=== PATIENT | male | born 1985 | race Two or more races ===

== ENCOUNTER 2025-03-03 04:24 | Emergency (ER) | payer OTHER, SELFPAY ==
[2025-03-03 04:35] VITALS: BP 155/113; PULSE 78; RESP 18; TEMP 36.8; O2SAT 99
[2025-03-03 04:44] VITALS: PULSE 103; RESP 22; O2SAT 98
[2025-03-03 04:48] VITALS: BP 169/117; PULSE 79; RESP 20; TEMP 37.1; O2SAT 99
--- NOTE | 2025-03-03 04:51 | EKG_ITS ---
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
--- NOTE | 2025-03-03 05:20 | XR_ITS ---
Examination: CT brain head without contrast. 2-D sagittal coronal reconstructions Date and time of exam: March 03, 2025, 0634 hours INDICATIONS: Seizure today CTDI: vol (mGy): 51.6 DLP: (mGycm): 1004 Technique: Multiple CT axial sections of the brain have been obtained, 5 mm slice thickness. Contrast has not been administered. 2-D sagittal, coronal reconstructions have been obtained Low dose protocols were performed. One or more of the following dose reduction techniques were used; automated exposure control, adjustment of the mA and/or KV according to patient size, use of iterative reconstruction technique. Findings: No significant ventricular enlargement. Intra-axial or extra-axial hemorrhage density is not seen. No mass effect or midline shift Basal cisterns are not remarkable. Fourth ventricle is midline. Cranial vault intact. Impression: Negative for acute hemorrhage, mass effect or midline shift Consider elective brain MRI follow-up, pre and post contrast, seizure protocol
--- NOTE | 2025-03-03 05:25 | EDNOTE_ITS ---
ED General RME/HPI General Chief complaint: Seizure Stated complaint: AMS Time Seen by Provider: 03/03/25 05:20 Arrival date/time: 03/03/25 04:24 Related Data Allergies Allergy/AdvReac Type Severity Reaction Status Date / Time No Known Drug Allergies Allergy Verified 03/03/25 05:28 ED Exam Narrative Physical exam: Physical Exam: GENERAL: Patient on right lateral recumbent position appears to be seizing HEENT: NC/AT. Moist mucosa. PERRLA/EOMI. sputum from mouth without any frothiness and clear discharge from nares CARDIO: Heart RRR, no obvious murmurs, no JVD. PULM: No coughing or visible SOB. Lungs CTA B/L. GI: Abdomen soft, NT/ND, +BS. SKIN/MSK/EXT: No wounds/discoloration/rashes/edema/amputations noted, no noted pain on palpation. +Pedal pulses present B/L. NEURO: Oriented x0. Patient appears to be seizing but not convincing, eyes open does not respond to commands, no meningeal signs noted with head flexion, unable to assess muscle strength, sensations or cranial nerves at this time. Course Quality Measures none Orders Category Date Time Status EKG (ED ONLY) *Do not use* NOW Care 03/03/25 04:51 Completed Insert IV NOW Care 03/03/25 05:20 Completed Straight [In and Out Catheter] X1 Care 03/03/25 06:[address] head/brain wo con Stat Exams 03/03/25 05:20 Taken EKG (ED Only) Stat Exams 03/03/25 04:51 Ordered ABG [Arterial Blood Gas] Stat Lab 03/03/25 06:26 Ordered Alcohol, Blood Medical Stat Lab 03/03/25 05:23 Results BNP [B-Type Natriuretic Peptide] Stat Lab 03/03/25 05:53 Received Bilirubin,Direct Stat Lab 03/03/25 05:23 Results CBC Stat Lab 03/03/25 05:23 Completed CMP [Comprehensive Metabolic Panel] Stat Lab 03/03/25 05:23 Results Creatine Kinase Stat Lab 03/03/25 05:23 Results Drug Screen,Urine Stat Lab 03/03/25 06:27 Ordered Magnesium Stat Lab 03/03/25 05:23 Results Thyroid Stimulating Hormone Stat Lab 03/03/25 05:23 Results Troponin I Stat Lab 03/03/25 05:23 Results UA, C/S IF [Urinalysis, C/S if Indicated] Stat Lab 03/03/25 06:27 Ordered LORazepam [Ativan Inj] Med 03/03/25 05:15 Discontinued 2 mg .ROUTE .STK-MED ONE LORazepam [Ativan Inj] Med 03/03/25 05:15 Discontinued 2 mg IVP X1 ONE Ondansetron Inj [Zofran Inj] Med 03/03/25 06:26 Discontinued 4 mg IVP X1 ONE Ringers Lactated 1000 ml [Lactated Ringers] 1,000 ml Med 03/03/25 06:26 Active IV 1,000 mls/hr Vital Signs Vital signs: Vital Signs Temperature 98.3 F 03/03/25 04:35 Pulse Rate 78 03/03/25 04:35 Respiratory Rate 18 03/03/25 04:35 Blood Pressure 155/113 H 03/03/25 04:35 Pulse Oximetry (%) 99 03/03/25 04:35 Oxygen Delivery Method Room Air 03/03/25 04:35 Discharge Plan Plan Patient Disposition: Admit Acute Care w/in Hospital Problem List Clinical Impression: New onset seizure Patient/Caregiver Discharge Instructions Print Language: [place] Islander Stand Alone Forms: [email or web address] Award Info., Patient Portal Info Letter MDM Narrative MDM hospital course (for use when minimal MDM required): HPI: 39-year-old male with no significant past medical history presenting from skilled nursing with apparent seizure episode witnessed from nursing staff. Report largely taken from EMS and nursing staff who states the patient had 1 episode where he was found on the floor shaking whole body. Unable to get much history of otherwise. Examination as noted above, patient presented with hypertension blood pressure 155/113, heart rate 78, respiratory rate 18, afebrile satting 99 on room air. Fingerstick blood glucose of 112 lab findings were pending at this time. #Possible new seizure episode Seizure episode lasted less than 2 minutes during examination Patient awake the entire time eyes open, but not answering to any questioning CT head ordered IV Ativan 2 mg given; patient immediately stopped seizing before nurse gave the dose Patient presented to attending Dr. Wesley Pending further workup including laboratory findings, imaging including CT head without contrast and likely teleneurology consultation Will sign out patient to incoming ED physician [place], DO PGY-2 Internal Medicine - [facility] Medication Administration(s) Medication Administration History Lactated Ringer's (Lactated Ringers) 1,000 mls @ 1,000 mls/hr IV .Q1H ONE Stop: 03/03/25 07:25 Discontinued Medications Lorazepam (Lorazepam 2 Mg/Ml Vial) Confirm Administered Dose 2 mg .ROUTE .STK- MED ONE Stop: 03/03/25 05:16 Last Admin: 03/03/25 06:01 Dose: Not Given Documented By: ENRIKE Non-Admin Reason: Duplicate Medication on eMAR Lorazepam (Lorazepam 2 Mg/Ml Vial) 2 mg IVP X1 ONE Stop: 03/03/25 05:16 Last Admin: 03/03/25 05:33 Dose: 2 mg Documented By: ENRIKE Ondansetron HCl (Ondansetron Inj 2 Mg/Ml Inj 2 Ml) 4 mg IVP X1 ONE; Protocol Stop: 03/03/25 06:27
[2025-03-03] MEDS: LORazepam 2 MG/ML VIAL IVP (05:33)
[2025-03-03 06:10] LABS: Basophils # (Auto) 0.1 Thou/mm3 (0.0-0.2); Basophils % (Auto) 1 % (0-2.5); Eosinophils # (Auto) 0.0 Thou/mm3 (0.0-0.5); Eosinophils % (Auto) 0 % (0-10); Hematocrit 42.7 % (41.0-53.0); Hemoglobin 14.3 g/dL (13.5-16.0); Immature Granulocytes Auto 0.03 Thou/mm3 (0.00-0.00); Lymphocytes # (Auto) 2.1 Thou/mm3 (1.0-4.8); Lymphocytes % (Auto) 24 % (10-50); Mean Corpuscular HGB Conc 33.5 g/dl (31.0-37.0); Mean Corpuscular Hemoglobin 29.7 pg (25.0-35.0); Mean Corpuscular Volume 89 fL (80-100); Monocytes # (Auto) 0.5 Thou/mm3 (0.0-0.8); Monocytes % (Auto) 5 % (0-12); Neutrophils # (Auto) 6.4 Thou/mm3 (1.8-7.7); Neutrophils % (Auto) 70 % (37-80); Nucleated Red Blood Cell # 0.00 Thou/mm3 (0.00-0.00); Nucleated Red Blood Cell % 0 /100 WBC (0); Platelet Count 445 Thou/mm3 (140-440); RDW Standard Deviation 41.9 fL (35.1-43.9); Red Blood Count 4.81 Miln/mm3 (4.50-5.90); White Blood Count 9.1 Thou/mm3 (3.8-10.6)
[2025-03-03 06:18] VITALS: BP 149/104; PULSE 82; RESP 17; O2SAT 99
--- NOTE | 2025-03-03 06:20 | PD.EDADDENDU ---
Emergency Room Addendum Addendum Narrative: I took over the care from previous shift physician at _0600_ on _03/03/25_. See previous notes for complete H & P and ED course. I reviewed all diagnostic test results. My interpretation of the EKG: NSR (80 bpm) with no ST-T changes. My review of the head CT report is NAD. Blood tests and urine tests unremarkable. Diagnoses include: New onset seizure Treatment here included: IVF Ativan 2 mg IV Keppra 2000 mg IV Zofran 4 mg IV Seizure resolved and patient remained stable. Prescribed Keppra and recommended more outpatient care. Discharge Instructions from Dr. Madsen printed for you: 1. After extensive evaluation, exact cause of your seizure was not determined. But there is no immediately life-threatening condition. Such as stroke or brain tumor. 2. Take Keppra as prescribed to prevent another seizure. 3. Ask the medical provider at the correction for help to see neurologist this coming week for further care. 4. Seek immediate medical care with another seizure or with any concerns. Gary Madsen MD
[2025-03-03 06:30] LABS: Alanine Aminotransferase 26 U/L (10-49); Albumin, Serum 5.0 gm/dL (3.5-5.0); Albumin/Globulin Ratio 1.8 (1.2-2.2); Alkaline Phosphatase 97 U/L (46-116); Anion Gap 10 (7-16); Aspartate Amino Transferase 20 U/L (0-34); BUN/Creatinine Ratio 11 Ratio (12-20); Bilirubin,Total 0.4 mg/dL (0.3-1.2); Blood Urea Nitrogen 11 mg/dL (9-23); Calcium 9.7 mg/dL (8.3-10.6); Calcium (Corrected) 9.7 mg/dL (8.5-10.1); Carbon Dioxide 28.6 mMol/L (20.0-31.0); Chloride 103 mMol/L (98-107); Creatinine (Component) 1.0 mg/dL (0.6-1.3); Globulin 2.8 gm/dL (2.3-3.5); Glucose 95 mg/dL (74-106); Osmolality,Calculated 282 (275-295); Potassium 3.9 mMol/L (3.4-5.1); Sodium 142 mMol/L (136-145); Total Protein 7.8 gm/dL (5.7-8.2); eGFR > 60 See Note
[2025-03-03 06:49] LABS: Collection Type, Urine Clean Catch; Squamous Epithelial Cell,Urine 0 /hpf (0-5)
[2025-03-03] MEDS: ONDANSETRON INJ 2 MG/ML INJ 2 ML 4 MG IVP (06:52)
[2025-03-03] MEDS: RINGERS LACTATED 1000 ML 1,000 ML IV (06:52)
[2025-03-03 07:06] LABS: Bilirubin,Urine Negative (Negative); Blood,Urine Negative (Negative); Clarity,Urine Clear (Clear/Hazy); Color,Urine Lt-Yellow (Lt Yel-Yel); Culture Indicated,Urine Not Indicated; Glucose, Urine Negative (Negative); Ketones,Urine Negative (Negative); Leukocyte Esterase,Urine Negative (Negative); Nitrite,Urine Negative (Negative); PH,Urine 7.0 (5.0-7.0); Protein,Urine Negative (Neg - Trace); RBC,Urine 3 /hpf (0-3); Specific Gravity,Urine 1.024 (1.001-1.035); Urobilinogen,Urine Negative mg/dL (0.0-1.0); WBC,Urine < 1 /hpf (0-5)
[2025-03-03 07:08] LABS: B-Type Natriuretic Peptide < 20 pg/mL (0-100)
[2025-03-03 07:09] LABS: Alcohol, Blood Medical < 3.0 mg/dL (0-10.0); Bilirubin,Direct 0.1 mg/dL (0.0-0.3); Creatine Kinase 104 U/L (34-171); Magnesium 1.8 mg/dL (1.6-2.6); Thyroid Stimulating Hormone 2.49 uIU/mL (0.55-4.78); Troponin I < 0.020 ng/mL (0.0-0.045)
[2025-03-03] MEDS: levETIRAcetam INJ 100 MG/ML VIAL 5ML 2000 MG IVP (07:09)
[2025-03-03 07:36] LABS: Amphetamine/Methamp Scrn,U Negative (Negative); Barbiturate Screen,Urine Negative (Negative); Benzodiazepines Screen,Urine Positive (Negative); Benzoylecgonine Screen, Ur Negative (Negative); Fentanyl Screen,Urine Negative (Negative); Opiate Screen,Urine Negative (Negative); THC Screen,Urine Negative (Negative)
[2025-03-03 08:35] VITALS: BP 145/78; PULSE 98; RESP 16; TEMP 36.9; O2SAT 96
--- NOTE | 2025-03-03 08:45 | PC.NURSE ---
went to d/c pt, pt reports chest pain. provider notified, ekg ordered.
== END 2025-03-03 09:12 ==
LOC: SERX 08:37
PROVIDERS: Emergency Provider Emergency Medicine; PCP Emergency Medicine
DX: R56.9 Unspecified convulsions (principal)
CPT/HCPCS: 36415; 36600; 70450; 80053; 80307; 80320; 81001; 82248; 82550; 82803; 83735; 83880; 84443; 84484; 85025; 93005; 96361; 96374; 96375; 99284; J1953; J2060; J2405; J7120; G0480

== ENCOUNTER 2025-03-11 01:08 | Emergency (ER) | payer OTHER, SELFPAY ==
[2025-03-11] VITALS (7 sets, daily range): BP systolic 145–184; BP diastolic 75–133; PULSE 80–97; RESP 14–19; TEMP 36.5–37.1; O2SAT 97–99; BMI 23.7
--- NOTE | 2025-03-11 01:12 | EDNOTE_ITS ---
ED Seizures RME/HPI General Chief Complaint: Seizure Stated Complaint: SEIZURE Time Seen by Provider: 03/11/25 01:22 Arrival date/time: 03/11/25 01:08 RME / HPI RME / HPI Narrative: See [facility] for Dr. Madsen's HPI Documentation. Related Data Home Medications ?Medication ?Instructions ?Recorded ?Confirmed calcium carbonate 200 mg PO BID 03/12/2503/12 Held on 03/15/25. Instructions: Resume on 03/22/25. Hold until you see PCP docusate sodium 100 mg capsule 100 mg PO BID 03/12/25 03/12/25 (Colace) famotidine 20 mg tablet 20 mg PO QDAY 03/12/2503/12 nifedipine 30 mg tablet,extended 30 mg PO QDAY 5 03/12/25 release Previous Rx's ?Medication ?Instructions ?Recorded levetiracetam 1,000 mg tablet 1,000 mg PO BID #60 tabs 03/11/25 (Keppra) Allergies Allergy/AdvReac Type Severity Reaction Status Date / Time contrast Allergy Severe Anaphylaxis Uncoded 03/12/25 15:35 Review of Systems Review of Systems ROS Unobtainable: unobtainable due to mental status Past Medical History Past Medical History NEUROLOGIC: Positive Seizures ED Exam Narrative Physical exam: See [facility] for Dr. Madsen's Physical Exam Documentation. Course Quality Measures none Orders Category Date Time Status EKG (ED ONLY) *Do not use* NOW Care 03/11/25 01:44 Completed Tanner [Urinary Catheter] QS Care 03/11/25 01:21 Completed Saline [Insert IV] NOW Care 03/11/25 01:16 Completed Straight [In and Out Catheter] X1 Care 03/11/25 01:[address] head/brain wo con Stat Exams 03/11/25 02:24 Completed EKG (ED Only) Stat Exams 03/11/25 01:44 Draft ABG [Arterial Blood Gas] Stat Lab 03/11/25 01:50 Completed Acetaminophen Stat Lab 03/11/25 01:27 Completed Alcohol, Blood Medical Stat Lab 03/11/25 01:27 Completed Ammonia Stat Lab 03/11/25 01:27 Completed BNP [B-Type Natriuretic Peptide] Stat Lab 03/11/25 01:27 Completed Beta Hydroxybutyrate Stat Lab 03/11/25 01:27 Completed Bilirubin,Direct Stat Lab 03/11/25 01:27 Completed CBC Stat Lab 03/11/25 01:27 Completed CK [Creatine Kinase] Stat Lab 03/11/25 01:27 Completed CMP [Comprehensive Metabolic Panel] Stat Lab 03/11/25 01:27 Completed CRP [C-Reactive Protein] Stat Lab 03/11/25 01:27 Completed Drug Screen,Urine Stat Lab 03/11/25 01:25 Completed ESR [Sed Rate (ESR)] Stat Lab 03/11/25 01:27 Completed Levetiracetam (Keppra)* Stat Lab 03/11/25 01:27 Completed Lipase Stat Lab 03/11/25 01:27 Completed Magnesium Stat Lab 03/11/25 01:27 Completed Procalcitonin Stat Lab 03/11/25 01:27 Completed Salicylate Stat Lab 03/11/25 01:27 Completed Troponin I Stat Lab 03/11/25 01:27 Completed UA, C/S IF [Urinalysis, C/S if Indicated] Stat Lab 03/11/25 01:25 Completed VBG [Venous Blood Gas] Stat Lab 03/11/25 01:27 Completed LORazepam [Ativan Inj] Med 03/11/25 04:16 Discontinued 2 mg IVP X1 ONE Midazolam Inj [Versed Inj] Med 03/11/25 01:16 Discontinued 4 mg IVP X1 ONE Ondansetron Inj [Zofran Inj] Med 03/11/25 01:16 Discontinued 4 mg IVP X1 ONE Sodium Chloride 0.9% 1000 ml [Ns] 1,000 ml Med 03/11/25 01:16 Discontinued IV 999 mls/hr Sodium Chloride 0.9% 1000 ml [Ns] 1,000 ml Med 03/11/25 03:28 Discontinued IV 999 mls/hr hydrALAZINE INJ [Apresoline Inj] Med 03/11/25 01:23 Discontinued 20 mg IVP X1 ONE levETIRAcetam INJ [Keppra Inj] Med 03/11/25 01:16 Discontinued 2,000 mg IVP X1 ONE Vital Signs Vital signs: Vital Signs Temperature 98.8 F 03/11/25 01:17 Pulse Rate 87 03/11/25 01:17 Respiratory Rate 17 03/11/25 01:17 Blood Pressure 184/133 H 03/11/25 01:17 Pulse Oximetry (%) 98 03/11/25 01:17 Oxygen Delivery Method Room Air 03/11/25 01:17 Seizure MDM Narrative MDM Narrative:: This section includes all my notes and documentations, including HPI, PE, and ED course. Gary Madsen MD HPI: 39 y/o male from group home here with possible seizures. I took care of him last week with possible new onset seizures. Discharged him with Keppra 500 mg BID. 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 Then, he placed himself on the floor. And officer noted seizure like activity. Whole body became rigid. No generalized shaking noted. He became unresponsive. Ativan 2 mg IM given. And EMS brought him here. EMS noted another episode of rigidity. Patient remained unresponsive. He has been in group home for about a month. Reports indicate possible alcohol abuse. No other significant reports. ROS: Can't obtain from the patient due to current clinical condition. Physical Exam: General: Appears postictal. Not verbal. Not responsive to pain. High BP noted. Eyes: Conjunctivae and lids clear. EOMI. PERRL. ENT: No nasal congestion. Pharynx normal. Tympanic membrane normal bilaterally. Neck: Supple. No carotid bruit. No JVD. Heart: RRR. Lungs: No respiratory distress. Good air movement. No rhonchi, wheezing, rales. Abdomen: Soft and nontender. Skin: Warm and dry. Neuro: Cranial Nerves II-XII grossly intact. No peripheral motor deficits. I reviewed all diagnostic test results: My interpretation of the EKG: NSR (80 bpm) with no ST-T changes. My review of the Head/Brain CT report is NAD. Blood tests and urine tests unremarkable. At this point, diagnoses include: Possible seizures Treatment here included: IVF Zofran 4 mg IV Hydralazine 20 mg IV Versed 4 mg IV Keppra 1000 mg IV Significant improvement noted. Became alert and oriented. I discussed the case with our hospitalist. About the presentation and exam and diagnostics and treatments here. Declined to accept the patient. Believes patient is faking for gains. Based on my best medical judgment, made decision no further evaluation or treatment indicated at this time. Patient understands and agrees to the discharge instructions customized and printed, see below. Discharge Instructions from Dr. Madsen printed for you: 1. After extensive evaluation, there is no immediately life-threatening condition. Such as stroke or brain tumor. 2. Exact cause of the seizure-like activity was not determined. After evaluation by our hospitalist team, pseudoseizure may be the diagnosis. 3. Increase Keppra to 1000 mg twice daily in case we are dealing with real seizure. 4. See a private doctor on 03/12/2025 for recheck and further care, including second opinion. Ask for help with MRI imaging of the brain, EEG (evaluation of brain's electrical activity), and referral to see neurologist. 5. Seek immediate medical care with worsening or with any concerns. Gary Madsen MD Patient data External records reviewed:: [facility] previous records (Reviewed prior ED records from 03/03/25. Patient was seen for New onset seizure.) Clinical information provided by:: patient and law enforcement Social determinants that could affect healthcare access:: housing (Detention) Patient has the following chronic illnesses:: Seizures How is presenting disease/condition affected by chronic disease/condition?: exacerbated by Evaluation data The following diagnostics were reviewed and interpreted by me:: lab results, radiology exam(s) and EKG tracing(s) (My interpretation of the EKG: NSR (80 bpm) with no ST-T changes. Gary Madsen MD) Lab and/or radiology exams considered but not ordered:: None Interpretation Summary: I reviewed all diagnostic test results: My interpretation of the EKG: NSR (80 bpm) with no ST-T changes. My review of the Head/Brain CT report is NAD. Blood tests and urine tests unremarkable. Medications / Prescriptions Medications or Prescriptions considered but not ordered:: None Medication administrations:: Medication Administration History Discontinued Medications Hydralazine HCl (Hydralazine Inj 20 Mg/Ml Vial) 20 mg IVP X1 ONE Stop: 03/11/25 01:24 Last Admin: 03/11/25 01:32 Dose: 20 mg Documented By: CB Sodium Chloride (Ns) 1,000 mls @ 999 mls/hr IV .Q1H1M ONE Stop: 03/11/25 02:16 Last Infusion: 03/11/25 02:41 Dose: Infused Documented By: Admin: 03/11/25 01:26 Dose: 999 mls/hr Documented By: KRISTIN Sodium Chloride (Ns) 1,000 mls @ 999 mls/hr IV .Q1H1M ONE Stop: 03/11/25 04:28 Last Admin: 03/11/25 03:36 Dose: 999 mls/hr Documented By: SUNIL Levetiracetam (Levetiracetam Inj 100 Mg/Ml Vial 5ml) 2,000 mg IVP X1 ONE Stop: 03/11/25 01:17 Last Admin: 03/11/25 01:30 Dose: 2,000 mg Documented By: KRISTIN Lorazepam (Lorazepam 2 Mg/Ml Vial) 2 mg IVP X1 ONE Stop: 03/11/25 04:17 Last Admin: 03/11/25 04:29 Dose: Not Given Documented By: KARINA Non-Admin Reason: Cancelled by Provider Midazolam HCl (Midazolam Inj 1 Mg/Ml Vial 2 Ml) 4 mg IVP X1 ONE Stop: 03/11/25 01:17 Last Admin: 03/11/25 01:30 Dose: 4 mg Documented By: KRISTIN Ondansetron HCl (Ondansetron Inj 2 Mg/Ml Inj 2 Ml) 4 mg IVP X1 ONE; Protocol Stop: 03/11/25 01:17 Last Admin: 03/11/25 01:32 Dose: 4 mg Documented By: KRISTIN Treatment here included: IVF Zofran 4 mg IV Hydralazine 20 mg IV Versed 4 mg IV Keppra 1000 mg IV Consultations Consultation(s) initiated? (list below): Yes Consultation #1 (Physician, Specialty, Details): I discussed the case with our hospitalist. About the presentation and exam and diagnostics and treatments here. Declined to accept the patient. Believes patient is faking for gains. Diagnosis Seizure Differential Diagnosis: intractable seizure disorder, focal seizure, generalized seizure, epileptic seizure and status epilepticus Most likely diagnosis given after review of the tests above:: Possible seizures Admission Indicated Admission indicated?: not indicated Explain why admission is indicated or not indicated:: I discussed the case with our hospitalist. About the presentation and exam and diagnostics and treatments here. Declined to accept the patient. Believes patient is faking for gains. Admission Request Was there a request for admission?: No Disposition Plan Disposition Plan: Discharge Discharge Attestation Discharge Attestation: The patient and all family members were given an opportunity to ask questions and understood the discharge instructions. Discharge instructions specifically effects, indications for sooner follow up or return to the emergency department, and the expected course of current diagnosis. Patient condition: Stable Discharge Plan Plan Patient Disposition: Detention/Court/Law Prescriptions/Referrals Prescriptions/Med Rec: New levetiracetam [Keppra] 1,000 mg tablet 1,000 mg PO BID Qty: 60 0RF No Action nifedipine 30 mg tablet extended release 30 mg PO QDAY Patient Comments: TAKE 1 TABLET BY MOUTH ON EMPTY STOMACH ONCE EVERY DAY calcium carbonate 200 mg calcium (500 mg) tablet,chewable 200 mg PO BID docusate sodium [Colace] 100 mg capsule 100 mg PO BID famotidine 20 mg tablet 20 mg PO QDAY Referrals: No Primary/Family,Physician [Primary Care Provider] - In 1 week Problem List Clinical Impression: Seizure-like activity Patient/Caregiver Discharge Instructions Discharge Activity: activity as tolerated Education Materials: ED Seizure, Recurrent (Adult), ED Conversion Disdr Conversion Reac Additional Instructions: Discharge Instructions from Dr. Madsen printed for you: 1. After extensive evaluation, there is no immediately life-threatening condition. Such as stroke or brain tumor. 2. Exact cause of the seizure-like activity was not determined. After evaluation by our hospitalist team, pseudoseizure may be the diagnosis. 3. Increase Keppra to 1000 mg twice daily in case we are dealing with real seizure. 4. See a private doctor on 03/12/2025 for recheck and further care, including second opinion. Ask for help with MRI imaging of the brain, EEG (evaluation of brain's electrical activity), and referral to see neurologist. 5. Seek immediate medical care with worsening or with any concerns. Print Language: Frisian
[2025-03-11] MEDS: SODIUM CHLORIDE 0.9% 1000 ML 1,000 ML 999 ML IV ×2 (01:26→03:36)
[2025-03-11] MEDS: MIDAZOLAM INJ 1 MG/ML VIAL 2 ML 4 MG IVP (01:30)
[2025-03-11] MEDS: levETIRAcetam INJ 100 MG/ML VIAL 5ML 2000 MG IVP (01:30)
[2025-03-11 01:31] LABS: Collection Type, Urine Clean Catch; Squamous Epithelial Cell,Urine 0 /hpf (0-5)
[2025-03-11] MEDS: ONDANSETRON INJ 2 MG/ML INJ 2 ML 4 MG IVP (01:32)
[2025-03-11] MEDS: hydrALAZINE INJ 20 MG/ML VIAL IVP (01:32)
[2025-03-11 01:37] LABS: Base Excess, Venous 4 (-3-3); O2 Saturation, Venous 85 % (96-97); PCO2, Venous 46 mmHg (36-56); PO2, Venous 50 mmHg (15-58); pH, Venous 7.42 (7.33-7.66)
[2025-03-11 01:37] LABS: Bilirubin,Urine Negative (Negative); Blood,Urine Negative (Negative); Clarity,Urine Clear (Clear/Hazy); Color,Urine Lt-Yellow (Lt Yel-Yel); Culture Indicated,Urine Not Indicated; Glucose, Urine Negative (Negative); Ketones,Urine Negative (Negative); Leukocyte Esterase,Urine Negative (Negative); Nitrite,Urine Negative (Negative); PH,Urine 7.0 (5.0-7.0); Protein,Urine Negative (Neg - Trace); RBC,Urine < 1 /hpf (0-3); Specific Gravity,Urine 1.015 (1.001-1.035); Urobilinogen,Urine Negative mg/dL (0.0-1.0); WBC,Urine < 1 /hpf (0-5)
[2025-03-11 01:42] LABS: Sed Rate (ESR) 10 mm/hr (0-15)
[2025-03-11 01:42] LABS: Amphetamine/Methamp Scrn,U Negative (Negative); Barbiturate Screen,Urine Negative (Negative); Benzodiazepines Screen,Urine Negative (Negative); Benzoylecgonine Screen, Ur Negative (Negative); Fentanyl Screen,Urine Negative (Negative); Opiate Screen,Urine Negative (Negative); THC Screen,Urine Negative (Negative)
[2025-03-11 01:44] LABS: Basophils # (Auto) 0.1 Thou/mm3 (0.0-0.2); Basophils % (Auto) 1 % (0-2.5); Eosinophils # (Auto) 0.1 Thou/mm3 (0.0-0.5); Eosinophils % (Auto) 1 % (0-10); Hematocrit 42.5 % (41.0-53.0); Hemoglobin 14.2 g/dL (13.5-16.0); Immature Granulocytes Auto 0.05 Thou/mm3 (0.00-0.00); Lymphocytes # (Auto) 3.9 Thou/mm3 (1.0-4.8); Lymphocytes % (Auto) 36 % (10-50); Mean Corpuscular HGB Conc 33.4 g/dl (31.0-37.0); Mean Corpuscular Hemoglobin 29.3 pg (25.0-35.0); Mean Corpuscular Volume 88 fL (80-100); Monocytes # (Auto) 0.8 Thou/mm3 (0.0-0.8); Monocytes % (Auto) 7 % (0-12); Neutrophils # (Auto) 5.9 Thou/mm3 (1.8-7.7); Neutrophils % (Auto) 55 % (37-80); Nucleated Red Blood Cell # 0.00 Thou/mm3 (0.00-0.00); Nucleated Red Blood Cell % 0 /100 WBC (0); Platelet Count 447 Thou/mm3 (140-440); RDW Standard Deviation 42.0 fL (35.1-43.9); Red Blood Count 4.84 Miln/mm3 (4.50-5.90); White Blood Count 10.8 Thou/mm3 (3.8-10.6)
--- NOTE | 2025-03-11 01:44 | EKG_ITS ---
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
[2025-03-11 01:56] LABS: Allen Test Performed/OK; Base Excess 3 (-3-3); HCO3 28 mEq/L (20-26); Inspired Oxygen, FIO2 21 %; O2 Saturation 96 % (91-98); PCO2 43 mmHg (32.0-48.0); PO2 85 mmHg (83-108); Puncture Site Right Radial; pH, Arterial 7.41 (7.35-7.45)
[2025-03-11 02:08] LABS: Ammonia 32 uMol/L (11-32)
--- NOTE | 2025-03-11 02:24 | XR_ITS ---
Examination: CT brain head without contrast. 2-D sagittal coronal reconstructions Date and time of exam: March 11, 2025, 0308 hours, comparison March 03, 2025 INDICATIONS: Seizure today CTDI: vol (mGy): 51.90 DLP: (mGycm): 1099 Technique: Multiple CT axial sections of the brain have been obtained, 5 mm slice thickness. Contrast has not been administered. 2-D sagittal, coronal reconstructions have been obtained Low dose protocols were performed. One or more of the following dose reduction techniques were used; automated exposure control, adjustment of the mA and/or KV according to patient size, use of iterative reconstruction technique. Findings: No significant ventricular enlargement. Intra-axial or extra-axial hemorrhage density is not seen. No mass effect or midline shift Basal cisterns are not remarkable. Fourth ventricle is midline. Cranial vault intact. 16 mm retention cyst left maxillary antrum Impression: Negative for acute hemorrhage, mass effect or midline shift Consider elective brain MRI follow-up, seizure protocol
[2025-03-11 02:37] LABS: Acetaminophen < 2.0 mcg/mL (10.0-20.0); Alanine Aminotransferase 29 U/L (10-49); Albumin, Serum 4.9 gm/dL (3.5-5.0); Albumin/Globulin Ratio 1.7 (1.2-2.2); Alcohol, Blood Medical < 3.0 mg/dL (0-10.0); Alkaline Phosphatase 94 U/L (46-116); Anion Gap 10 (7-16); Aspartate Amino Transferase 23 U/L (0-34); B-Type Natriuretic Peptide < 20 pg/mL (0-100); BUN/Creatinine Ratio 10 Ratio (12-20); Bilirubin,Direct < 0.1 mg/dL (0.0-0.3); Bilirubin,Total 0.4 mg/dL (0.3-1.2); Blood Urea Nitrogen 10 mg/dL (9-23); C-Reactive Protein < 0.5 mg/dL (0.0-0.9); Calcium 9.8 mg/dL (8.3-10.6); Calcium (Corrected) 9.8 mg/dL (8.5-10.1); Carbon Dioxide 27.9 mMol/L (20.0-31.0); Chloride 104 mMol/L (98-107); Creatine Kinase 151 U/L (34-171); Creatinine (Component) 1.0 mg/dL (0.6-1.3); Estimated Creatinine Clearance 108.9 mL/min (>60); Globulin 2.9 gm/dL (2.3-3.5); Glucose 86 mg/dL (74-106); Lipase 32 U/L (12-53); Magnesium 1.8 mg/dL (1.6-2.6); Osmolality,Calculated 281 (275-295); Potassium 3.9 mMol/L (3.4-5.1); Procalcitonin < 0.04 ng/ml (0.0-0.49); Salicylate < 3.0 mg/dL; Sodium 142 mMol/L (136-145); Total Protein 7.8 gm/dL (5.7-8.2); Troponin I < 0.020 ng/mL (0.0-0.045); eGFR > 60 See Note
[2025-03-11 03:21] LABS: Beta Hydroxybutyrate 0.0 mmol/L (<0.6)
--- NOTE | 2025-03-11 03:35 | PRELIM_ITS ---
CT scan of the head without intravenous contrast (axial sections with sagittal and coronal reformats). March 11, 2025 0308 hours Clinical History: AMS Comparison: None Findings: There is no intracranial hemorrhage, extra-axial collection, mass, mass-effect or midline shift. There is good espitia-white differentiation. There is no CT evidence of acute large vascular territorial infarct. Ventricles are not enlarged or effaced. There is mild paranasal sinus mucosal. 1.6 cm dependent left maxillary sinus mucous retention cyst noted. Tympanomastoid cavities are clear. The bony calvarium is intact. Impression: No intracranial hemorrhage, mass-effect or midline shift. No CT evidence of acute large vascular territorial infarct. Report Electronically Signed By: Yury Medina 03/11/2025 3:35:04 AM [EST]
[2025-03-15 06:22] LABS: Levetiracetam (Keppra)* <2.0 mcg/mL (10.0-40.0)
== END 2025-03-11 05:03 ==
PROVIDERS: Emergency Provider Emergency Medicine
DX: R56.9 Unspecified convulsions (principal)
CPT/HCPCS: 36415; 36600; 51702; 70450; 80053; 80177; 80307; 80320; 80329; 81001; 82010; 82140; 82248; 82550; 82803; 83690; 83735; 83880; 84145; 84484; 85025; 85652; 86140; 93005; 96361; 96374; 96375; 99284; A4314; J0360; J1953; J2250; J2405; J7030; G0480

== ENCOUNTER 2025-03-11 13:18 | Inpatient (IN) | payer MEDICAID, SELFPAY ==
[2025-03-11 13:29] VITALS: BP 160/113; PULSE 78; PULSE 88; RESP 18; TEMP 36.5; O2SAT 100; O2SAT 99; BMI 27.5
--- NOTE | 2025-03-11 13:36 | PD.EDSYNC ---
ED Syncope RME/HPI General Chief Complaint: Syncope / Near Syncope Stated Complaint: SYNCOPE Time Seen by Provider: 03/11/25 13:23 Arrival date/time: 03/11/25 13:18 RME / HPI RME / HPI narrative: DR. 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 Patient was seen in ED on 03/03/2025 for new onset seizure and was started on Keppra. Patient returned on 03/11/2025 at 1 AM with recurrent seizure and was discharged back into [facility] custody. Related Data Home Medications ?Medication ?Instructions ?Recorded ?Confirmed calcium carbonate 200 mg PO BID 03/12/25 03/12/25 Held on 03/15/25. Instructions: Resume on 03/22/25. Hold until you see PCP docusate sodium 100 mg capsule 100 mg PO BID 03/12/25 03/12/25 (Colace) famotidine 20 mg tablet 20 mg PO QDAY 03/12/25 03/12/25 nifedipine 30 mg tablet,extended 30 mg PO QDAY 03/12/25 03/12/25 release Previous Rx's ?Medication ?Instructions ?Recorded levetiracetam 1,000 mg tablet 1,000 mg PO BID #60 tabs 03/11/25 (Keppra) doxycycline hyclate 100 mg tablet 100 mg PO BID 27 days #54 tabs 03/16/25 Allergies Allergy/AdvReac Type Severity Reaction Status Date / Time contrast Allergy Severe Anaphylaxis Uncoded 03/20/25 09:10 Review of Systems Review of Systems Systems Reviewed: All systems reviewed, normal except as documented Past Medical History Past Medical History NEUROLOGIC: Positive Seizures CARDIAC: Positive Hypertension Social History SMOKING STATUS: Former smoker ED Exam Narrative Physical exam: GENERAL APPEARANCE: alert and oriented x 4, well-developed, well-nourished, no acute distress VITALS: All vitals were reviewed and the pulse ox is 99% on room air, which is normal according to my interpretation. HEENT: Normocephalic, atraumatic; pupils equal, round, reactive to light; EOMI; mucous membranes pink, moist; oropharynx clear NECK: Supple LUNGS: CTABL; no wheezes, no rales, no rhonchi HEART: Regular rate, regular rhythm; normal S1, S2; no murmurs ABDOMEN: non distended; normal BS; soft, no tenderness, no guarding, no rebound; no masses, no organomegaly, no hernia BACK: no CVA tenderness EXTREMITIES: atraumatic; no edema NEUROLOGIC: awake; alert and oriented x4; cranial nerves II-XII grossly intact; no focal sensory or motor deficits PSYCHIATRIC: appropriate mood and affect SKIN: warm, dry, normal color; no rashes Course Quality Measures none Orders Category Date Time Status EKG (ED ONLY) *Do not use* NOW Care 03/11/25 13:42 Completed Consult to Neurology / Tele-Neurology Stat Cons 03/11/25 15:18 Active EKG (ED Only) Stat Exams 03/11/25 13:42 Ordered CBC Stat Lab 03/11/25 14:15 Completed CMP [Comprehensive Metabolic Panel] Stat Lab 03/11/25 14:15 Completed Troponin I Stat Lab 03/11/25 14:15 Completed UA, C/S IF [Urinalysis, C/S if Indicated] Stat Lab 03/11/25 13:48 Completed Vital Signs Vital signs: Vital Signs Temperature 97.7 F 03/11/25 13:29 Pulse Rate 88 03/11/25 13:29 Respiratory Rate 18 03/11/25 13:29 Blood Pressure 160/113 H 03/11/25 13:29 Pulse Oximetry (%) 99 03/11/25 13:29 Oxygen Delivery Method Room Air 03/11/25 13:29 Syncope MDM Narrative MDM Narrative:: Scribe Attestation: Lisa Puga am scribing for and in the presence of Dr. Beck. Provider Notation: Although this document has been carefully reviewed, there may still be some phonetic and other typographical errors. These errors are purely grammatical due to imperfections in the software program and should not be construed in any way to compromise the substance of the patient's medical care during this visit. Patient data External records reviewed:: [facility] previous records (Reviewed prior ED records from Today. Patient was seen for Seizure-like activity.) and EMS form Clinical information provided by:: patient and EMS Social determinants that could affect healthcare access:: housing (Prison) Patient has the following chronic illnesses:: Seizures, HTN How is presenting disease/condition affected by chronic disease/condition?: exacerbated by Evaluation data The following diagnostics were reviewed and interpreted by me:: lab results and EKG tracing(s) (EKG manual reading, my interpretation: sinus rhythm, rate: 69 bpm, no ST elevation, possible Q-wave in v1, poor R-wave progression.) Lab and/or radiology exams considered but not ordered:: None Interpretation Summary: LABORATORY MARKERS Serum chemistries demonstrate BUN/Creatinine of 9. UA demonstrates urine RBC of 13. Medications / Prescriptions Medications or Prescriptions considered but not ordered:: None Medication administrations:: Medication Administration History Discontinued Medications Acetaminophen (Acetaminophen 325 Mg Tablet) 650 mg PO Q6H PRN PRN Reason: Fever >100.4 Stop: 04/10/25 16:09 Last Admin: 03/13/25 08:02 Dose: 650 mg Documented By: BRITTNEE Acetaminophen (Acetaminophen 325 Mg Tablet) 650 mg PO Q6H PRN PRN Reason: PAIN SCALE 1-3 (mild Stop: 04/10/25 16:09 Last Admin: 03/12/25 03:30 Dose: 650 mg Documented By: SUGAR Hydrocodone Bitart/Acetaminophen (Hydrocodone/Apap 5/325 Tablet) 1 tab PO Q4HR PRN PRN Reason: PAIN SCALE 4-10(Mod-Sev Stop: 03/16/25 16:14 Last Admin: 03/16/25 12:39 Dose: 1 tab Documented By: BRITTNEE(2) Admin: 03/16/25 03:09 Dose: 1 tab Documented By: Admin: 03/15/25 20:47 Dose: 1 tab Documented By: Admin: 03/15/25 08:34 Dose: 1 tab Documented By: BRITTNEE(2) Admin: 03/14/25 21:01 Dose: 1 tab Documented By: IG Amlodipine Besylate (Amlodipine Besylate 5 Mg Tablet) 5 mg PO QDAY GINA Stop: 04/11/25 08:59 Last Admin: 03/16/25 08:22 Dose: 5 mg Documented By: BRITTNEE(2) Admin: 03/15/25 08:34 Dose: 5 mg Documented By: BRITTNEE(2) Admin: 03/14/25 09:06 Dose: 5 mg Documented By: Admin: 03/13/25 08:03 Dose: 5 mg Documented By: Admin: 03/12/25 09:06 Dose: 5 mg Documented By: BRITTNEE Diazepam (Diazepam Inj 5 Mg/Ml Vial 2 Ml) 5 mg IVP Q15MIN PRN PRN Reason: seizure Stop: 03/16/25 16:17 Diphenhydramine HCl (Diphenhydramine Inj 50 Mg/Ml Vial) Confirm Administered Dose 50 mg .ROUTE .STK-MED ONE Stop: 03/12/25 15:26 Last Admin: 03/12/25 15:33 Dose: Not Given Documented By: JANETH Non-Admin Reason: Override Medication Diphenhydramine HCl (Diphenhydramine Inj 50 Mg/Ml Vial) 25 mg IVP X1 ONE Stop: 03/12/25 15:32 Last Admin: 03/12/25 15:33 Dose: 25 mg Documented By: JANETH Doxycycline Hyclate (Doxycycline 100 Mg Tablet) 100 mg PO BID GINA Stop: 03/21/25 08:59 Last Admin: 03/16/25 08:22 Dose: 100 mg Documented By: BRITTNEE(2) Admin: 03/15/25 20:47 Dose: 100 mg Documented By: Admin: 03/15/25 08:35 Dose: 100 mg Documented By: BRITTNEE(2) Admin: 03/14/25 21:01 Dose: 100 mg Documented By: Admin: 03/14/25 09:07 Dose: 100 mg Documented By: BRITTNEE Enoxaparin Sodium (Enoxaparin Sod Inj 40 Mg/0.4 Ml Syringe) 40 mg SC QDAY GINA Stop: 03/26/25 08:59 Last Admin: 03/16/25 08:23 Dose: 40 mg Documented By: BRITTNEE(2) Admin: 03/15/25 08:34 Dose: 40 mg Documented By: BRITTNEE(2) Admin: 03/14/25 10:00 Dose: Not Given Documented By: BRITTNEE Non-Admin Reason: Held for Procedure Admin: 03/13/25 08:02 Dose: 40 mg Documented By: Admin: 03/12/25 09:06 Dose: 40 mg Documented By: BRITTNEE Epinephrine HCl (Epinephrine Inj 1 Mg/Ml Amp) 1 mg IM X1 ONE Stop: 03/12/25 15:33 Last Admin: 03/12/25 15:23 Dose: 1 mg Documented By: VL Hydrocortisone Sodium Succinate (Hydrocortisone Sod Succ Inj 100 Mg 2 Ml Vial) Confirm Administered Dose 100 mg .ROUTE .STK-MED ONE Stop: 03/12/25 15:29 Last Admin: 03/12/25 15:33 Dose: Not Given Documented By: VL Non-Admin Reason: Override Medication Hydrocortisone Sodium Succinate (Hydrocortisone Sod Succ Inj 100 Mg 2 Ml Vial) 100 mg IV X1 ONE Stop: 03/12/25 15:32 Last Admin: 03/12/25 15:27 Dose: 100 mg Documented By: JANETH Lactated Ringer's (Lactated Ringers) 1,000 mls @ 75 mls/hr IV .[id number] GINA Stop: 04/10/25 16:14 Last Admin: 03/15/25 15:22 Dose: Not Given Documented By: BRITTNEE(2) Non-Admin Reason: Discontinued Infusion: 03/15/25 13:28 Dose: Infused Documented By: R(2) Admin: 03/15/25 00:08 Dose: 75 mls/hr Documented By: Infusion: 03/15/25 00:08 Dose: Infused Documented By: Admin: 03/14/25 17:05 Dose: 75 mls/hr Documented By: Infusion: 03/14/25 14:40 Dose: Infused Documented By: Admin: 03/14/25 01:20 Dose: 75 mls/hr Documented By: Infusion: 03/14/25 00:17 Dose: Infused Documented By: Admin: 03/13/25 10:57 Dose: 75 mls/hr Documented By: Infusion: 03/13/25 09:40 Dose: Infused Documented By: Admin: 03/12/25 20:20 Dose: 75 mls/hr Documented By: Infusion: 03/12/25 20:08 Dose: Infused Documented By: Admin: 03/12/25 06:48 Dose: 75 mls/hr Documented By: Infusion: 03/12/25 05:47 Dose: Infused Documented By: Admin: 03/11/25 16:27 Dose: 75 mls/hr Documented By: MALOU Magnesium Sulfate (Magnesium Sulfate Ivpb) 2 gm in 50 mls @ 25 mls/hr IV X1 ONE Stop: 03/12/25 11:26 Last Admin: 03/12/25 09:51 Dose: 25 mls/hr Documented By: BRITTNEE Ibuprofen (Ibuprofen Tab 400 Mg Tablet) 400 mg PO X1 ONE Stop: 03/16/25 10:31 Last Admin: 03/16/25 10:44 Dose: 400 mg Documented By: BRITTNEE(2) Lactulose (Lactulose Syrup 20 Gm/30 Ml Udc) 20 gm PO HS GINA; Protocol Stop: 04/10/25 20:59 Last Admin: 03/15/25 20:47 Dose: 20 gm Documented By: Admin: 03/14/25 21:01 Dose: 20 gm Documented By: Admin: 03/13/25 20:04 Dose: 20 gm Documented By: Admin: 03/12/25 20:18 Dose: 20 gm Documented By: Admin: 03/11/25 21:51 Dose: 20 gm Documented By: SUGAR Levetiracetam (Levetiracetam 250 Mg Tablet) 1,000 mg PO BID GNIA Stop: 04/12/25 20:59 Last Admin: 03/16/25 08:23 Dose: 1,000 mg Documented By: BRITTNEE(2) Admin: 03/15/25 20:46 Dose: 1,000 mg Documented By: Admin: 03/15/25 08:34 Dose: 1,000 mg Documented By: BRITTNEE(2) Admin: 03/14/25 21:01 Dose: 1,000 mg Documented By: Admin: 03/14/25 09:06 Dose: 1,000 mg Documented By: Admin: 03/13/25 20:04 Dose: 1,000 mg Documented By: Magnesium Oxide (Magnesium Oxide 400 Mg Tablet) 400 mg PO X1 ONE Stop: 03/16/25 08:30 Last Admin: 03/16/25 09:52 Dose: 400 mg Documented By: BRITTNEE(2) Ondansetron HCl (Ondansetron Inj 2 Mg/Ml Inj 2 Ml) 4 mg IVP Q6H PRN; Protocol PRN Reason: NAUSEA OR VOMITING Stop: 04/10/25 16:09 Polyethylene Glycol (Polyethylene Glycol 17 Gm Packet) 17 gm PO X1 ONE Stop: 03/15/25 10:49 Last Admin: 03/15/25 11:11 Dose: 17 gm Documented By: BRITTNEE(2) Sennosides (Senna Tablet) 1 tab PO QDAY GINA; Protocol Stop: 04/15/25 10:29 Last Admin: 03/16/25 10:44 Dose: 1 tab Documented By: BRITTNEE(2) See above if any Consultations Consultation(s) initiated? (list below): Yes Consultation #1 (Physician, Specialty, Details): Discussed with Dr. Ma for consult. Reviewed the patient?s HPI, PMHx, lab and/or radiology results. Treatment plan was discussed. Time: 15:16 Consultation #2 (Physician, Specialty, Details): Discussed with Dr. Laboy for admission. Reviewed the patient?s HPI, PMHx, lab and/or radiology results. Discussed treatment plan. Accepts patient for admission.. Time: 15:20 Diagnosis Syncope Differential Diagnosis: syncope due to orthostatic hypotension, vasovagal syncope, dehydration and other (Seizure) Most likely diagnosis given after review of the tests above:: New onset seizure Admission Indicated Admission indicated?: indicated Explain why admission is indicated or not indicated:: New onset seizure Admission Request Was there a request for admission?: Yes Admission Attestation Admission request attestation: Discussed case with [] from Hospitalist service regarding admission. Discussed patients ED course, exam findings, labs, and radiology results. The Hospitalist [agrees,declines] to accept the patient for admission. Disposition Plan Disposition Plan: Admit Discharge Plan Plan Patient Disposition: Admit Acute Care w/in Hospital Patient condition on transfer: Stable and Benefits outweigh risks Problem List Clinical Impression: New onset seizure
[2025-03-11 13:56] LABS: Collection Type, Urine Clean Catch; Squamous Epithelial Cell,Urine 0 /hpf (0-5)
[2025-03-11 14:04] LABS: Bilirubin,Urine Negative (Negative); Blood,Urine Trace (Negative); Clarity,Urine Clear (Clear/Hazy); Color,Urine Lt-Yellow (Lt Yel-Yel); Culture Indicated,Urine Not Indicated; Glucose, Urine Negative (Negative); Ketones,Urine Negative (Negative); Leukocyte Esterase,Urine Negative (Negative); Nitrite,Urine Negative (Negative); PH,Urine 6.5 (5.0-7.0); Protein,Urine Negative (Neg - Trace); RBC,Urine 13 /hpf (0-3); Specific Gravity,Urine 1.016 (1.001-1.035); Urobilinogen,Urine Negative mg/dL (0.0-1.0); WBC,Urine 1 /hpf (0-5)
[2025-03-11 14:28] LABS: Basophils # (Auto) 0.1 Thou/mm3 (0.0-0.2); Basophils % (Auto) 1 % (0-2.5); Eosinophils # (Auto) 0.1 Thou/mm3 (0.0-0.5); Eosinophils % (Auto) 1 % (0-10); Hematocrit 40.0 % (41.0-53.0); Hemoglobin 13.4 g/dL (13.5-16.0); Immature Granulocytes Auto 0.02 Thou/mm3 (0.00-0.00); Lymphocytes # (Auto) 2.5 Thou/mm3 (1.0-4.8); Lymphocytes % (Auto) 27 % (10-50); Mean Corpuscular HGB Conc 33.5 g/dl (31.0-37.0); Mean Corpuscular Hemoglobin 29.8 pg (25.0-35.0); Mean Corpuscular Volume 89 fL (80-100); Monocytes # (Auto) 0.7 Thou/mm3 (0.0-0.8); Monocytes % (Auto) 7 % (0-12); Neutrophils # (Auto) 6.0 Thou/mm3 (1.8-7.7); Neutrophils % (Auto) 64 % (37-80); Nucleated Red Blood Cell # 0.00 Thou/mm3 (0.00-0.00); Nucleated Red Blood Cell % 0 /100 WBC (0); Platelet Count 381 Thou/mm3 (140-440); RDW Standard Deviation 43.5 fL (35.1-43.9); Red Blood Count 4.50 Miln/mm3 (4.50-5.90); White Blood Count 9.4 Thou/mm3 (3.8-10.6)
[2025-03-11 14:52] LABS: Alanine Aminotransferase 26 U/L (10-49); Albumin, Serum 4.5 gm/dL (3.5-5.0); Albumin/Globulin Ratio 1.7 (1.2-2.2); Alkaline Phosphatase 84 U/L (46-116); Anion Gap 8 (7-16); Aspartate Amino Transferase 21 U/L (0-34); BUN/Creatinine Ratio 9 Ratio (12-20); Bilirubin,Total 0.3 mg/dL (0.3-1.2); Blood Urea Nitrogen 8 mg/dL (9-23); Calcium 9.3 mg/dL (8.3-10.6); Calcium (Corrected) 9.3 mg/dL (8.5-10.1); Carbon Dioxide 29.7 mMol/L (20.0-31.0); Chloride 104 mMol/L (98-107); Creatinine (Component) 0.9 mg/dL (0.6-1.3); Estimated Creatinine Clearance 121.0 mL/min (>60); Globulin 2.7 gm/dL (2.3-3.5); Glucose 98 mg/dL (74-106); Osmolality,Calculated 281 (275-295); Potassium 4.6 mMol/L (3.4-5.1); Sodium 142 mMol/L (136-145); Total Protein 7.2 gm/dL (5.7-8.2); Troponin I < 0.020 ng/mL (0.0-0.045); eGFR > 60 See Note
[2025-03-11 15:20] VITALS: BP 156/108; PULSE 86; RESP 19; TEMP 36.7; O2SAT 97
--- NOTE | 2025-03-11 16:22 | PD.RESHP ---
Documentation for date of: 03/11/25 HPI History of Present Illness History of present illness: HPI: 39-year-old male with recent history of new onset seizure, and HTN, [facility] presented after having had seizure like activity of about 20 minutes. Of note, patient was discharged from ED earlier in the day for a similar presentation of 17 minutes seizure-like activity. Patient states that he underwent whole body shaking while he was unconscious as reported by observers, and this was followed by half an hour of unresponsiveness, from which he gradually recovered. Patient was given Narcan at his senior living cell. He has also been treated with suboxone at senior living. While being transported to the hospital, patient reports 7 minutes of further seizure-like activity in the ambulence. Patient also reports urinary incontinence, and acidic smell in his nose. The very first episode that the patient is aware of happened on March 03 for which he was taken to the ED and sent out on anti seizing meds. Admits to occasional dysuria. Just prior to his seizures, he felt his chest hurting and fingers going numb. Patient had been told about 1 year ago by his partner that he had been shaking in bed and was unresponsive later. Denies recent fevers, diarrhea, admits to constipation. ED Course: At arrival, VSS []. Labs showed []. VSS BP 160s/113, HR 88, RR 18, T97.7, O2 99% in RA. labs: CBC WBC 9.4, Hgb 13.4, CMP K+ 4.6, cCa 9.3, Pro-Azam negative, lipase negative, trops negative, BNP negative, beta hydroxybutyrate 0. UA positive only for U RBCs 13, otherwise negative. EKG showed sinus rhythm. Patient received 1 L of normal saline, 4 mg of Zofran, 2 g of Keppra, 20 mg of Apresoline, and 4 mg of Versed Meds: Docycycline and Keppra; pending med rec as patient doesn't know well Allergy: none PMHx: Syphillis and Recent onset seizure PSHx: [none] Fam Hx: Seizure disorder in aunt and uncle, diabetes in mother's side of the family, hypertension in father side Soc Hx: Patient has been imprisoned since [place]. Admits to smoking marijuana and drinking 1/5 of vodka daily. Also admits to methamphetamine use. Reports having had multiple sexual partners without protection use. Exam Vital Signs Temp Pulse Resp BP Pulse Ox O2 Del Method 98.1 F 86 19 156/108 H 97 Room Air 03/11/25 15:20 03/11/25 15:20 03/11/25 15:20 03/11/25 15:20 03/11/25 15:20 03/11/25 15:20 Narrative Exam General: Alert and oriented x3, No apparent distress. Skin: Intact, Warm, no rashes. HEENT: Normocephalic, Atraumatic. Normal neck range of motion, Supple. Trachea midline. Respiratory: Lungs are clear to auscultation. Breath sounds are equal bilaterally with good, symmetric chest expansion. Cardiovascular: RRR, normal S1, S2, No murmurs. Distal pulses 2+ Abdomen: Abdomen non-distended, without erythema, or lesions. Normotensive bowel sounds x4. Percussion tympanic. Palpation soft, nontender in all four quadrants. No organomagely. Absent rigidity, guarding, or rebound. Musculoskeletal/Extremities: No erythema, swelling, tenderness of any joints. No edema of BLE. DP pulses +2/3 b/l. Full active ROM of all four extremities. Neurologic: NEURO: Oriented x3, cranial nerves II to XII grossly intact. Muscle strength 5/5 on UE and LE b/l, Moves extremities x4. Sensation intact to gross touch along C6-T1 and L2-S1 dermatomes. No focal neurologic deficits noted Psych: Thoughts linear and responses appropriate. Results: Labs 03/12/25 05:22 03/12/25 05:22 Labs: Short CBC 03/11/25 Range/Units 14:15 WBC 9.4 (3.8-10.6) Thou/mm3 Hgb 13.4 L (13.5-16.0) g/dL Hct 40.0 L (41.0-53.0) % Plt Count 381 D (140-440) Thou/mm3 BMP 03/11/25 14:15 Sodium 142 Potassium 4.6 D Chloride 104 Carbon Dioxide 29.7 BUN 8 L Creatinine 0.9 Glucose 98 Calcium 9.3 Cardiac Enzymes 03/11/25 Range/Units 14:15 Troponin I < 0.020 (0.0-0.045) ng/mL Liver Function 03/11/25 Range/Units 14:15 Total Bilirubin 0.3 (0.3-1.2) mg/dL AST 21 (0-34) U/L ALT 26 (10-49) U/L Alkaline Phosphatase 84 (46-116) U/L Albumin 4.5 (3.5-5.0) gm/dL Urine 03/11/25 Range/Units 13:48 Urine Color Lt-Yellow (Lt Yel-Yel) Urine Clarity Clear (Clear/Hazy) Urine pH 6.5 (5.0-7.0) Ur Specific Floyd 1.016 (1.001-1.035) Urine Protein Negative (Neg - Trace) Urine Glucose (UA) Negative (Negative) Quality Measures Quality Measures none Medications Home Medications and Allergies Home Medications ?Medication ?Instructions ?Recorded ?Confirmed ?Type calcium carbonate 200 mg PO BID 03/12/25 03/12/25 History docusate sodium 100 mg capsule 100 mg PO BID 03/12/25 03/12/25 History (Colace) famotidine 20 mg tablet 20 mg PO QDAY 03/12/25 03/12/25 History nifedipine 30 mg tablet,extended 30 mg PO QDAY 03/12/25 03/12/25 History release Allergies Allergy/AdvReac Type Severity Reaction Status Date / Time No Known Drug Allergies Allergy Verified 03/11/25 01:11 Visit Medications Acetaminophen (Acetaminophen 325 Mg Tablet) 650 mg PO Q6H PRN PRN Reason: Fever >100.4 Stop: 04/10/25 16:09 Acetaminophen (Acetaminophen 325 Mg Tablet) 650 mg PO Q6H PRN PRN Reason: PAIN SCALE 1-3 (mild Stop: 04/10/25 16:09 Hydrocodone Bitart/Acetaminophen (Hydrocodone/Apap 5/325 Tablet) 1 tab PO Q4HR PRN PRN Reason: PAIN SCALE 4-10(Mod-Sev Stop: 03/16/25 16:14 Diazepam (Diazepam Inj 5 Mg/Ml Vial 2 Ml) 5 mg IVP Q15MIN PRN PRN Reason: seizure Stop: 03/16/25 16:17 Enoxaparin Sodium (Enoxaparin Sod Inj 40 Mg/0.4 Ml Syringe) 40 mg SC QDAY GINA Stop: 03/26/25 08:59 Lactated Ringer's (Lactated Ringers) 1,000 mls @ 75 mls/hr IV .[id number] GINA Stop: 04/10/25 16:14 Lactulose (Lactulose Syrup 20 Gm/30 Ml Udc) 20 gm PO HS GINA; Protocol Stop: 04/10/25 20:59 Ondansetron HCl (Ondansetron Inj 2 Mg/Ml Inj 2 Ml) 4 mg IVP Q6H PRN; Protocol PRN Reason: NAUSEA OR VOMITING Stop: 04/10/25 16:09 Assessment & Plan Plan 39-year-old male with MHx of new onset seizures, syphillis, and HTN, [facility] presented after having had seizure-like activity of about 20 minutes and unresponsiveness for about half an hour. #Seizure-like activity Recurrent 10-20min long whole-body shaking while lying on the floor unconscious, followed by episodes of unresponsiveness. Patient denies tongue biting, admits to acidic odor in his nose. EKG showed sinus rhythm CT head negative UA negative (RBC 13/hpf). UDS negative. Plan: -Neurology, Dr Ma, consulted; appreciate recommendations -Diazepam IVP 5mg Q15min for max of 3 doses -pending MR brain -Started LR 1L @75mL/h -Seizure precautions -Multimodal pain control with APAP 650mg for mild and Vail 5/325 for moderate-severe pain -Daily CBC, CMP, Mg, Phos, also TSH and lipid panel with first AM labs #Syphilis, per hx Patient reports hx of multiple sexual partners and no protection use. He was recently diagnosed with syphilis and started on doxycycline. -pending med rec. -ID consulted; appreciate recommendations #HTN BP at the time of presentation was 160/113 -pending med rec #Substance use Patient reports history of methamphetamine use marijuana use, and having been treated with Narcan and Suboxone for opioid withdrawal. Health Maintenance: Disposition: Telemetry Diet: Routine PPx DVT: Lovenox SC 40mg Qday Code Status: Full This case was discussed with my attending physician, Dr. Laboy, and senior resident, Dr Jarquin. Even though this this note was carefully revised there may still be minor errors in senior compliance officer due to voice recognition software. Roro Peña, DO PGY I Senior Resident Attestation: I discussed with and supervised the investigator internal revenue physician involved in the care of this patient. I personally saw and examined the patient and discussed the assessment and plan with the entire medicine team, including my attending. I agree with the assessment and plan as documented above. Jadiel Jarquin MD PGY3 Internal Medicine Attending Provider Attestation/Addendum 39-year-old male patient who was brought in today because of apparent seizure episode this morning. The patient said that he was in his usual health. He took a dose of Suboxone and then was noted to have seizures. This was reported to the clinic but he said that he went back to his cell. Few minutes later he said that he took another dose of Suboxone and then might have fallen asleep when they were not able to arouse him. The patient was brought to the emergency room. Workup for new onset seizure was recommended by neurology service. Patient will be admitted for further workup. CT scan of the brain is unremarkable.
[2025-03-11] MEDS: RINGERS LACTATED 1000 ML 1,000 ML 75 ML IV (16:27)
--- NOTE | 2025-03-11 16:46 | PC.CC ---
Patient is a 39 year old male [facility] [place] [facility]. MICROSTRATEGY ARCHITECT DEVELOPERAnyi made [id number] contact with patient introduced self, role, and reason for visit. Patient appeared alert and oriented to self, location, and situation. MICROSTRATEGY ARCHITECT DEVELOPER, discussed limits of confidentiality. At bedside was [place] Gracian. Patient confirmed information on demographics. Per patient, he is independent with all his ADLs and is able to ambulate independently. Patient does not require any DME. Patient is not a dialysis patient. Upon discharge patient is to return with [place]'s back to incarceration.
[2025-03-11 18:29] VITALS: BP 155/96; PULSE 94; RESP 18; TEMP 36.9; O2SAT 96
[2025-03-11 20:46] VITALS: BP 157/99; PULSE 88; RESP 19; TEMP 36.7; O2SAT 97
[2025-03-11] MEDS: LACTULOSE SYRUP 20 GM/30 ML UDC PO (21:51)
[2025-03-11 22:00] VITALS: BP 153/90; PULSE 82; RESP 18; TEMP 36.3; O2SAT 98
[2025-03-11 22:28] VITALS: BMI 26.2
[2025-03-12] VITALS (10 sets, daily range): BP systolic 136–173; BP diastolic 77–117; PULSE 64–109; RESP 13–23; TEMP 36.1–36.9; O2SAT 95–100; BMI 26.2
--- NOTE | 2025-03-12 | XR_ITS ---
Examination: MRI of brain without intravenous contrast. MRI brain with intravenous contrast. Date and time of exam: March 12, 2025, 1432 hours INDICATIONS: New onset seizure yesterday Technique: Multiple axial and sagittal images of the brain to been obtained. Siemens high-resolution 1.52 Consuelo short bore scanner utilized. Sagittal sections, T1 weighted images, TR 500, TE 14, are performed. Axial sections proton-density and T2-weighted images have been obtained. Inversion recovery axial images, TR 9260, TE 111, TR 2500. Diffusion weighted images, axial sections, TR 4800, TE 128, B value 1000. Axial sections, ADC map, TR 4800, TE 128. Axial and coronal images were also obtained post 17 cc cc gadolinium administered intravenously. Findings:: Enlargement of the sella turcica is not present. The optic chiasm and infundibular stalk are not remarkable. There is no localized enlargement of the medulla or sahil. Fourth ventricle and cerebellar tonsils appear normal in position. No subacute area of hemorrhage density is seen. Fourth ventricle is midline. Mass in the cerebellopontine angle region is not evident. 7th and 8th nerve complexes exhibit symmetry Globes are symmetrical Orbital musculature including medial lateral rectus muscles do not exhibit abnormality Increased white matter signal is not seen Effacement of the cortical sulcal markings is not identified. Mass effect upon the ventricular system is not identified. Diffusion-weighted images demonstrate no focus of restricted diffusion Contrast images demonstrate no abnormal enhancement Impression: Negative for acute hemorrhage, mass effect or midline shift No acute infarct No findings diagnostic for demyelinating disease
[2025-03-12] MEDS: ACETAMINOPHEN 325 MG TABLET 650 MG PO (03:30)
[2025-03-12 06:02] LABS: Basophils # (Auto) 0.1 Thou/mm3 (0.0-0.2); Basophils % (Auto) 1 % (0-2.5); Eosinophils # (Auto) 0.1 Thou/mm3 (0.0-0.5); Eosinophils % (Auto) 1 % (0-10); Hematocrit 39.5 % (41.0-53.0); Hemoglobin 12.8 g/dL (13.5-16.0); Immature Granulocytes Auto 0.02 Thou/mm3 (0.00-0.00); Lymphocytes # (Auto) 3.0 Thou/mm3 (1.0-4.8); Lymphocytes % (Auto) 36 % (10-50); Mean Corpuscular HGB Conc 32.4 g/dl (31.0-37.0); Mean Corpuscular Hemoglobin 29.4 pg (25.0-35.0); Mean Corpuscular Volume 91 fL (80-100); Monocytes # (Auto) 0.7 Thou/mm3 (0.0-0.8); Monocytes % (Auto) 8 % (0-12); Neutrophils # (Auto) 4.5 Thou/mm3 (1.8-7.7); Neutrophils % (Auto) 53 % (37-80); Nucleated Red Blood Cell # 0.00 Thou/mm3 (0.00-0.00); Nucleated Red Blood Cell % 0 /100 WBC (0); Platelet Count 347 Thou/mm3 (140-440); RDW Standard Deviation 44.2 fL (35.1-43.9); Red Blood Count 4.36 Miln/mm3 (4.50-5.90); White Blood Count 8.5 Thou/mm3 (3.8-10.6)
[2025-03-12 06:22] LABS: INR 1.0 (0.9-1.3); Partial Thromboplastin Time 27.2 Seconds (22.0-36.0); Prothrombin Time 10.2 Seconds (9.0-12.2)
[2025-03-12] MEDS: RINGERS LACTATED 1000 ML 1,000 ML 75 ML IV ×2 (06:48→20:20)
[2025-03-12 07:07] LABS: Alanine Aminotransferase 26 U/L (10-49); Albumin, Serum 4.3 gm/dL (3.5-5.0); Albumin/Globulin Ratio 1.7 (1.2-2.2); Alkaline Phosphatase 92 U/L (46-116); Anion Gap 7 (7-16); Aspartate Amino Transferase 22 U/L (0-34); BUN/Creatinine Ratio 13 Ratio (12-20); Bilirubin,Total 0.3 mg/dL (0.3-1.2); Blood Urea Nitrogen 12 mg/dL (9-23); Calcium 9.4 mg/dL (8.3-10.6); Calcium (Corrected) 9.4 mg/dL (8.5-10.1); Carbon Dioxide 32.1 mMol/L (20.0-31.0); Cardiac Risk Estimate 2.9 RATIO (4.0-6.7); Chloride 104 mMol/L (98-107); Cholesterol 147 mg/dL (132-200); Creatinine (Component) 0.9 mg/dL (0.6-1.3); Estimated Creatinine Clearance 121.0 mL/min (>60); Globulin 2.6 gm/dL (2.3-3.5); Glucose 97 mg/dL (74-106); HDL Cholesterol 50 mg/dL (40-60); LDL Cholesterol,Calculated 74 mg/dL (0-130); Magnesium 1.6 mg/dL (1.6-2.6); Osmolality,Calculated 284 (275-295); Phosphorous 4.8 mg/dL (2.4-5.1); Potassium 4.3 mMol/L (3.4-5.1); Sodium 143 mMol/L (136-145); Total Protein 6.9 gm/dL (5.7-8.2); Triglycerides 113 mg/dL (30-150); eGFR > 60 See Note
[2025-03-12 07:23] LABS: Thyroid Stimulating Hormone 3.43 uIU/mL (0.55-4.78)
[2025-03-12] MEDS: ENOXAPARIN SOD INJ 40 MG/0.4 ML SYRINGE SC (09:06)
--- NOTE | 2025-03-12 09:34 | ESPR_ITS ---
Subjective Subjective Interval history: reportedly a witnessed sz at nursing home (by guards) no pmh Exam Vital Signs Temp Pulse Resp BP Pulse Ox O2 Del Method 96.9 F 88 13 138/83 H 97 Room Air 03/12/25 08:00 03/12/25 09:06 03/12/25 08:00 03/12/25 09:06 03/12/25 08:00 03/12/25 08:00 Narrative Exam sl slow but non focal exam Objective - Internal Medicine Labs 03/12/25 05:22 03/12/25 05:22 Labs: Laboratory Results - last 24 hr 03/11/25 03/11/25 03/12/25 13:48 14:15 05:22 WBC 9.4 8.5 RBC 4.50 4.36 L Hgb 13.4 L 12.8 L Hct 40.0 L 39.5 L MCV 89 91 MCH 29.8 29.4 MCHC 33.5 32.4 RDW Std Deviation 43.5 44.2 H Plt Count 381 D 347 D Neut % (Auto) 64 53 Lymph % (Auto) 27 36 [place] % (Auto) 7 8 Eos % (Auto) 1 1 Baso % (Auto) 1 1 Neut # (Auto) 6.0 4.5 Lymph # (Auto) 2.5 3.0 [place] # (Auto) 0.7 0.7 Eos # (Auto) 0.1 0.1 Baso # (Auto) 0.1 0.1 Immature Gran # (Auto) 0.02 H 0.02 H Absolute Nucleated RBC 0.00 0.00 Immature Gran % 0 0 Nucleated RBC % 0 0 PT 10.2 INR 1.0 APTT 27.2 Sodium 142 143 Potassium 4.6 D 4.3 Chloride 104 104 Carbon Dioxide 29.7 32.1 H Anion Gap 8 7 BUN 8 L 12 Creatinine 0.9 0.9 Estim Creat Clear Calc 121.0 121.0 eGFR > 60 > 60 BUN/Creatinine Ratio 9 L 13 Glucose 98 97 Calculated Osmolality 281 284 Calcium 9.3 9.4 Corrected Calcium 9.3 9.4 Phosphorus 4.8 Magnesium 1.6 Total Bilirubin 0.3 0.3 AST 21 22 ALT 26 26 Alkaline Phosphatase 84 92 Troponin I < 0.020 Total Protein 7.2 6.9 Albumin 4.5 4.3 Globulin 2.7 2.6 Albumin/Globulin Ratio 1.7 1.7 Triglycerides 113 Cholesterol 147 LDL Cholesterol, Calc 74 HDL Cholesterol 50 Cholesterol/HDL Ratio 2.9 L TSH 3.43 Ur Collection Type Clean Catch Urine Color Lt-Yellow Urine Clarity Clear Urine pH 6.5 Ur Specific [place] 1.016 Urine Protein Negative Urine Glucose (UA) Negative Urine Ketones Negative Urine Blood Trace Urine Nitrite Negative Urine Bilirubin Negative Urine Urobilinogen (Auto) Negative Ur Leukocyte Esterase Negative Urine RBC 13 H Urine WBC 1 Ur Squamous Epith Cells 0 Urine Bacteria None Ur Culture Indicated? Not Indicated Assessment & Plan A&P Narrative pos rpr . no titer available. he went to [facility] so prior titer may be there po doxy ok for now as pen hard to come by syphilis is more common in [facility] population but he can not say when last sex was. I have no objection to LP and csf for vdrl, but sz are common. and if titer low, may not be needed. added hiv and hep c screen to w/u for am Time Spent With Patient Time: Total time spent is greater than 50% in coordination of care (as documented) at patient's floor/unit and/or counseling patient:
[2025-03-12] MEDS: Magnesium Sulfate 2 GM Ivpb 2 GM/50 ML BAG IV (09:51)
[2025-03-12 10:01] LABS: Glucose Estimated Average 114 mg/dL (80-131); Hemoglobin A1C 5.6 % Hgb (4.8-6.0)
[2025-03-12 10:32] LABS: Syphilis Reactive (Nonreactive)
[2025-03-12 10:33] LABS: MHATP/TP-PA* See Sep Rpt
--- NOTE | 2025-03-12 11:43 | ESCONSULT_ITS ---
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 Cooper Laboy REASON FOR CONSULTATION: Positive RPRs. HISTORY OF PRESENT ILLNESS: The patient has a positive RPR and had a seizure at while incarcerated. He has been incarcerated since before . The seizure is his first seizure. This is his first time. He does not recall any of it. It was apparently witnessed by guards. We have no verification of the seizure. He is a little bit postictal still at the moment, but also a little tired as he speaks kind of slowly. His examination is grossly benign. He reports that he went to see the doctor at [facility] because his girlfriend had some symptoms and they both got tested and they are both positive. I asked him when his last sexual contact was, but he did not answer that. PAST MEDICAL HISTORY: None. PAST SURGICAL HISTORY: None. ALLERGIES: NONE. IMMUNIZATIONS: Last tetanus was a few years ago, he cannot recall the date. He does not take a flu shot every year. He has not had COVID vaccine. He has not had pneumococcal vaccine. FAMILY HISTORY: Positive for cancer in his mother and hypertension in both parents. SOCIAL HISTORY: He is homeless. He has been incarcerated for a couple of weeks. PHYSICAL EXAMINATION: Benign. ASSESSMENT: Positive syphilis test at [facility] by report with a history of seizure. RECOMMENDATIONS: I have no objection to a spinal tap if you wish to do that. If you wish to wait for the titer at the [facility] that would be fine too. It should be available by this afternoon. cc: Cooper Laboy MD Darshan DT: 10:53:28 TT: 11:42:00 Ref: [id number] - TID: [id number] MTD
--- NOTE | 2025-03-12 12:24 | PC.SS ---
Update: MRI pending. Neurology and infectious disease recommendations are pending.
--- NOTE | 2025-03-12 15:01 | PD.RESPRO ---
Documentation for date of: 03/12/25 Subjective Subjective Interval history: Patient was seen and examined at bedside. No acute events took place overnight. Patient states that he had been diagnosed with syphilis about 2 months ago after concerns verena by his girlfriend.? He denies fevers, tremors, confusion, unresponsiveness overnight. VSS WNL CBC and CMP ur Ordered Mg 2g for Mg 1.6 Exam Vital Signs Temp Pulse Resp BP Pulse Ox O2 Del Method 96.9 F 72 13 137/83 H 96 Room Air 03/12/25 12:00 03/12/25 12:00 03/12/25 12:00 03/12/25 12:00 03/12/25 12:03/12/25 12:00 Narrative Exam General: Alert and oriented x3, No apparent distress. Skin: Intact, Warm, no rashes. HEENT: Normocephalic, Atraumatic. Normal neck range of motion, Supple. Trachea midline. Respiratory: Lungs are clear to auscultation. Breath sounds are equal bilaterally with good, symmetric chest expansion. Cardiovascular: RRR, normal S1, S2, No murmurs. Distal pulses 2+ Abdomen: Abdomen non-distended, without erythema, or lesions. Normotensive bowel sounds x4. Percussion tympanic. Palpation soft, nontender in all four quadrants. No organomagely. Absent rigidity, guarding, or rebound. Musculoskeletal/Extremities: No erythema, swelling, tenderness of any joints. No edema of BLE. DP pulses +2/3 b/l. Full active ROM of all four extremities. Neurologic: NEURO: Oriented x3, cranial nerves II to XII grossly intact. Muscle strength 5/5 on UE and LE b/l, Moves extremities x4. Sensation intact to gross touch along C6-T1 and L2-S1 dermatomes. No focal neurologic deficits noted Psych: Thoughts linear and responses appropriate. Objective Labs 03/15/25 05:09 03/15/25 05:09 Labs: Laboratory Results - last 24 hr 03/11/25 03/12/25 14:15 05:22 WBC 8.5 RBC 4.36 L Hgb 12.8 L Hct 39.5 L MCV 91 MCH 29.4 MCHC 32.4 RDW Std Deviation 44.2 H Plt Count 347 D Neut % (Auto) 53 Lymph % (Auto) 36 [place] % (Auto) 8 Eos % (Auto) 1 Baso % (Auto) 1 Neut # (Auto) 4.5 Lymph # (Auto) 3.0 [place] # (Auto) 0.7 Eos # (Auto) 0.1 Baso # (Auto) 0.1 Immature Gran # (Auto) 0.02 H Absolute Nucleated RBC 0.00 Immature Gran % 0 Nucleated RBC % 0 PT 10.2 INR 1.0 APTT 27.2 Sodium 142 143 Potassium 4.6 D 4.3 Chloride 104 104 Carbon Dioxide 29.7 32.1 H Anion Gap 8 7 BUN 8 L 12 Creatinine 0.9 0.9 Estim Creat Clear Calc 121.0 121.0 eGFR > 60 > 60 BUN/Creatinine Ratio 9 L 13 Glucose [address] Glu mg/dL 114 Hemoglobin A1c 5.6 Calculated Osmolality 281 284 Calcium 9.3 9.4 Corrected Calcium 9.3 9.4 Phosphorus 4.8 Magnesium 1.6 Total Bilirubin 0.3 0.3 AST 21 22 ALT 26 26 Alkaline Phosphatase 84 92 Troponin I < 0.020 Total Protein 7.2 6.9 Albumin 4.5 4.3 Globulin 2.7 2.6 Albumin/Globulin Ratio 1.7 1.7 Triglycerides 113 Cholesterol 147 LDL Cholesterol, Calc 74 HDL Cholesterol 50 Cholesterol/HDL Ratio 2.9 L TSH 3.43 Syphilis Serology Reactive A Quality Measures Quality Measures none Assessment & Plan Assessment Current Active Medications: Generic Name Dose Route Start Last Admin Trade Name Freq PRN Reason Stop Dose Admin Acetaminophen 650 mg 03/11/25 16:10 Acetaminophen 325 Mg Tablet PO 04/10/25 16:09 Q6H PRN Fever >100.4 Acetaminophen 650 mg 03/11/25 16:10 03/12/25 03:30 Acetaminophen 325 Mg Tablet PO 04/10/25 16:09 650 mg Q6H PRN Administration PAIN SCALE 1-3 (mild Hydrocodone Bitart/Acetaminophen 1 tab 03/11/25 16:15 Hydrocodone/Apap 5/325 Tablet PO 03/16/25 16:14 Q4HR PRN PAIN SCALE 4-10(Mod-Sev Amlodipine Besylate 5 mg 03/12/25 09:00 03/12/25 09:06 Amlodipine Besylate 5 Mg Tablet PO 04/11/25 08:59 5 mg QDAY GINA Administration Diazepam 5 mg 03/11/25 16:18 Diazepam Inj 5 Mg/Ml Vial 2 Ml IVP 03/16/25 16:17 Q15MIN PRN seizure Enoxaparin Sodium 40 mg 03/12/25 09:00 03/12/25 09:06 Enoxaparin Sod Inj 40 Mg/0.4 Ml Syringe SC 03/26/25 08:59 40 mg QDAY GINA Administration Lactated Ringer's 1,000 mls @ 75 mls/hr 03/11/25 16:15 03/12/25 06:48 Lactated Ringers IV 04/10/25 16:14 75 mls/hr .[id number] GINA Administration Lactulose 20 gm 03/11/25 21:00 03/11/25 21:51 Lactulose Syrup 20 Gm/30 Ml Udc PO 04/10/25 20:59 20 gm HS GINA Administration Protocol Ondansetron HCl 4 mg 03/11/25 16:10 Ondansetron Inj 2 Mg/Ml Inj 2 Ml IVP 04/10/25 16:09 Q6H PRN NAUSEA OR VOMITING Protocol Plan 39-year-old male with MHx of new onset seizures, syphillis, and HTN, [facility] presented after having had seizure-like activity of about 20 minutes and unresponsiveness for about half an hour. ? #Seizure-like activity Recurrent 10-20min long whole-body shaking while lying on the floor unconscious, followed by episodes of unresponsiveness. Patient denies tongue biting, admits to acidic odor in his nose. EKG showed sinus rhythm CT head negative UA negative (RBC 13/hpf). UDS negative. ? MRI Brain w+wo con was negative for hemorrhage, mass effect, or infarct. + TSH 3.43 <5, lipid panel WNL ? Plan: -Neurology, Dr Ma, consulted; appreciate recommendations -Diazepam IVP 5mg Q15min for max of 3 doses -ordered EEG -Started LR 1L @75mL/h -Seizure precautions -Multimodal pain control with APAP 650mg for mild and [place] 5/325 for moderate to severe pain -Daily CBC, CMP, Mg, Phos ? #Syphilis, per Hx #High Risk Sexual Activity Patient reports hx of multiple sexual partners and no protection use. He states that he was recently diagnosed with syphilis and started on doxycycline. Reports to have received treatment already. +Syphilis serology (+) ? Plan: -pending [facility]-TP Ab titers -ID consulted for concerns of neurosyphilis; appreciate recommendations -Dr Ma team will reach back regarding necessity of LP test. -although patient admits to the name doxycycline, this is not in his confirmed med list. -ordered HIV Ag/Ab 1&2 test ? #HTN BP at the time of presentation was 160/113 -Started amlodipine PO 5mg Qday ? #Substance use Patient reports history of methamphetamine use, marijuana use, and having been treated with Narcan and Suboxone for opioid withdrawal. ? Health Maintenance: Disposition: Telemetry Diet: Routine PPx DVT: Lovenox SC 40mg Qday Code Status: Full ? This case was discussed with my attending physician, Dr. Laboy, and senior resident, Dr Jarquin. Even though this this note was carefully revised there may still be minor errors in adhesive bandage machine operator due to voice recognition software. Roro Peña, DO PGY I Senior Resident Attestation: The patient initially reported doing well, but later went for MRI brain, and after contrast was introduced, he had severe allergy to contrast, and when he was brought back rapid response was called because he was unresponsive and slumped on his wheelchair. He was given IM epinephrine, methylprednisone and diphenhydramine and he improved. Neuro reccomended LP but he told will need time to think about this, to rule out neurosyphillis. I discussed with and supervised the architect internship physician involved in the care of this patient. I personally saw and examined the patient and discussed the assessment and plan with the entire medicine team, including my attending. I agree with the assessment and plan as documented above. Jadiel Jarquin MD PGY3 Internal Medicine Attending Provider Attestation/Addendum Neurology and ID consulted, OUTREACH MANAGER later in the day for possible reaction to MRI contrast. Patient vitals remian stable, follow up recs form ID and neurology. Discussed with housestaff.
[2025-03-12] MEDS: EPINEPHrine INJ 1 MG/ML AMP IM (15:23)
[2025-03-12] MEDS: HYDROCORTISONE SOD SUCC INJ 100 MG 2 ML VIAL IV (15:27)
[2025-03-12 15:43] LABS: Basophils # (Auto) 0.1 Thou/mm3 (0.0-0.2); Basophils % (Auto) 1 % (0-2.5); Eosinophils # (Auto) 0.1 Thou/mm3 (0.0-0.5); Eosinophils % (Auto) 1 % (0-10); Hematocrit 42.6 % (41.0-53.0); Hemoglobin 14.0 g/dL (13.5-16.0); Immature Granulocytes Auto 0.02 Thou/mm3 (0.00-0.00); Lymphocytes # (Auto) 3.2 Thou/mm3 (1.0-4.8); Lymphocytes % (Auto) 35 % (10-50); Mean Corpuscular HGB Conc 32.9 g/dl (31.0-37.0); Mean Corpuscular Hemoglobin 29.5 pg (25.0-35.0); Mean Corpuscular Volume 90 fL (80-100); Monocytes # (Auto) 0.5 Thou/mm3 (0.0-0.8); Monocytes % (Auto) 6 % (0-12); Neutrophils # (Auto) 5.0 Thou/mm3 (1.8-7.7); Neutrophils % (Auto) 56 % (37-80); Nucleated Red Blood Cell # 0.00 Thou/mm3 (0.00-0.00); Nucleated Red Blood Cell % 0 /100 WBC (0); Platelet Count 420 Thou/mm3 (140-440); RDW Standard Deviation 43.8 fL (35.1-43.9); Red Blood Count 4.75 Miln/mm3 (4.50-5.90); White Blood Count 9.0 Thou/mm3 (3.8-10.6)
[2025-03-12 16:00] LABS: Alanine Aminotransferase 29 U/L (10-49); Albumin, Serum 4.8 gm/dL (3.5-5.0); Albumin/Globulin Ratio 1.6 (1.2-2.2); Alkaline Phosphatase 105 U/L (46-116); Anion Gap 9 (7-16); Aspartate Amino Transferase 22 U/L (0-34); BUN/Creatinine Ratio 10 Ratio (12-20); Bilirubin,Total 0.3 mg/dL (0.3-1.2); Blood Urea Nitrogen 11 mg/dL (9-23); Calcium 9.4 mg/dL (8.3-10.6); Calcium (Corrected) 9.4 mg/dL (8.5-10.1); Carbon Dioxide 28.5 mMol/L (20.0-31.0); Chloride 102 mMol/L (98-107); Creatinine (Component) 1.1 mg/dL (0.6-1.3); Estimated Creatinine Clearance 99.0 mL/min (>60); Globulin 3.0 gm/dL (2.3-3.5); Glucose 96 mg/dL (74-106); Osmolality,Calculated 276 (275-295); Potassium 4.0 mMol/L (3.4-5.1); Sodium 139 mMol/L (136-145); Total Protein 7.8 gm/dL (5.7-8.2); eGFR > 60 See Note
[2025-03-12 16:03] LABS: Creatine Kinase 196 U/L (34-171)
--- NOTE | 2025-03-12 16:06 | PD.RESEVENT ---
Documentation for date of: 03/12/25 Event Note Event Note: At 1525 received rapid response for patient unresponsive. Patient was seen slumping over in wheelchair as he was brought back from brain w con imaging. Patient was noted to have erythema and swelling of the face, likely an allergic reaction to the contrast he had just received. He was unresponsive to questions addressed to him, however withdrew from noxious stimuli. VSS BP 163/113, HR 93, RR 8, SpO2 93%. Patient received 1 mg epinephrine, upon the administration of which he became responsive, A&O x3. He was also given hydrocortisone IV 100mg and Benedryl 25mg. BP improved to 148/117, remainder of vitals WNL. Patient was mildy tremulous subsequently. Pending Brain MRI and EEG. Ordered CBC, CMP, and CK. This case was discussed with my attending physician, Dr. Laboy, and senior resident, Dr Holloway. Even though this this note was carefully revised there may still be minor errors in reading intervention teacher due to voice recognition software. Roro Peña, DO PGY I
--- NOTE | 2025-03-12 16:37 | PD.RESCONSUL ---
HPI Data of Consult Requesting Physician: Cooper Laboy MD Admitting Provider: Cooper Laboy MD Attending Provider: Cooper Laboy MD Primary Care Provider: Physician No Primary/Family Consult Narrative Reason for consult: Seizures History of present illness: Patient is a 39-year-old male with recent history of new onset seizure, and HTN, BIB [facility] presented after having had seizure like activity of about 20 minutes. Of note, patient was discharged from ED earlier in the day for a similar presentation of 17 minutes seizure-like activity. Patient states that he underwent whole body shaking while he was unconscious as reported by observers, and this was followed by half an hour of unresponsiveness, from which he gradually recovered. Patient was given Narcan at his [facility] cell. He has also been treated with suboxone at [facility]. While being transported to the hospital, patient reports 7 minutes of further seizure-like activity in the ambulence. Patient also reports urinary incontinence, and acidic smell in his nose. The very first episode that the patient is aware of happened on March 03 for which he was taken to the ED and sent out on anti seizing meds. Admits to occasional dysuria. Just prior to his seizures, he felt his chest hurting and fingers going numb. Patient had been told about 1 year ago by his partner that he had been shaking in bed and was unresponsive later. Denies recent fevers, diarrhea, admits to constipation. Neurology was consulted for further workup and management of seizures. Of note patient has not had any seizure episodes while in the hospital. Today had a rapid response for contrast allergy reaction of facial swelling returning from MRI. cc:: cc: Cooper Laboy MD Past Medical History Past Medical History Comments PMH COMMENT: Meds: Docycycline and Keppra; pending med rec as patient doesn't know well Allergy: none PMHx: Syphillis and Recent onset seizure PSHx: [none] Fam Hx: Seizure disorder in aunt and uncle, diabetes in mother's side of the family, hypertension in father side Soc Hx: Patient has been imprisoned since [place]. Admits to smoking marijuana and drinking 1/5 of vodka daily. Also admits to methamphetamine use. Reports having had multiple sexual partners without protection use. Exam Vital Signs Temp Pulse Resp BP Pulse Ox O2 Del Method 96.9 F 81 13 173/115 H 96 Room Air 03/12/25 12:00 03/12/25 15:23 03/12/25 12:00 03/12/25 15:23 03/12/25 12:00 03/12/25 12:00 Narrative Exam Physical Exam General: Awake and in no acute distress. Conversational and non-toxic appearing. HEENT: Normocephalic, atraumatic, mucous membranes moist. Heart: Regular rate and rhythm, normal S1 and S2, no murmurs. Lungs: Clear to auscultation with no wheezing or crackles. Abdomen: Soft, nondistended, nontender, positive bowel sounds. ?No guarding or rebound tenderness. Neurologic: Alert and oriented x3, no gross neurological deficit, and patient able to move all 4 extremities. Extremities: No edema. Skin: No rash or ecchymoses. Results Labs 03/12/25 15:30 03/12/25 15:30 Labs: Short CBC 03/12/25 03/12/25 Range/Units 05:22 15:30 WBC 8.5 9.0 (3.8-10.6) Thou/mm3 Hgb 12.8 L 14.0 (13.5-16.0) g/dL Hct 39.5 L 42.6 (41.0-53.0) % Plt Count 347 D 420 D (140-440) Thou/mm3 BMP 03/12/25 03/12/25 05:22 15:30 Sodium 143 139 Potassium 4.3 4.0 Chloride 104 102 Carbon Dioxide 32.1 H 28.5 BUN 12 11 Creatinine 0.9 1.1 Glucose 97 96 Calcium 9.4 9.4 Cardiac Enzymes 03/12/25 Range/Units 15:30 Total Creatine Kinase 196 H D (34-171) U/L Liver Function 03/12/25 03/12/25 Range/Units 05:22 15:30 Total Bilirubin 0.3 0.3 (0.3-1.2) mg/dL AST 22 22 (0-34) U/L ALT 26 29 (10-49) U/L Alkaline Phosphatase 92 105 (46-116) U/L Albumin 4.3 4.8 D (3.5-5.0) gm/dL Quality Measures Quality Measures none Medications Home Medications and Allergies Home Medications ?Medication ?Instructions ?Recorded ?Confirmed ?Type calcium carbonate 200 mg PO BID 03/12/25 03/12/25 History docusate sodium 100 mg capsule 100 mg PO BID 03/12/25 03/12/25 History (Colace) famotidine 20 mg tablet 20 mg PO QDAY 03/12/25 03/12/25 History nifedipine 30 mg tablet,extended 30 mg PO QDAY 03/12/25 03/12/25 History release Allergies Allergy/AdvReac Type Severity Reaction Status Date / Time contrast Allergy Severe Anaphylaxis Uncoded 03/12/25 15:35 Visit Medications Acetaminophen (Acetaminophen 325 Mg Tablet) 650 mg PO Q6H PRN PRN Reason: Fever >100.4 Stop: 04/10/25 16:09 Acetaminophen (Acetaminophen 325 Mg Tablet) 650 mg PO Q6H PRN PRN Reason: PAIN SCALE 1-3 (mild Stop: 04/10/25 16:09 Last Admin: 03/12/25 03:30 Dose: 650 mg Hydrocodone Bitart/Acetaminophen (Hydrocodone/Apap 5/325 Tablet) 1 tab PO Q4HR PRN PRN Reason: PAIN SCALE 4-10(Mod-Sev Stop: 03/16/25 16:14 Amlodipine Besylate (Amlodipine Besylate 5 Mg Tablet) 5 mg PO QDAY [facility] Stop: 04/11/25 08:59 Last Admin: 03/12/25 09:06 Dose: 5 mg Diazepam (Diazepam Inj 5 Mg/Ml Vial 2 Ml) 5 mg IVP Q15MIN PRN PRN Reason: seizure Stop: 03/16/25 16:17 Enoxaparin Sodium (Enoxaparin Sod Inj 40 Mg/0.4 Ml Syringe) 40 mg SC QDAY [facility] Stop: 03/26/25 08:59 Last Admin: 03/12/25 09:06 Dose: 40 mg Lactated Ringer's (Lactated Ringers) 1,000 mls @ 75 mls/hr IV .[id number] [facility] Stop: 04/10/25 16:14 Last Admin: 03/12/25 06:48 Dose: 75 mls/hr Lactulose (Lactulose Syrup 20 Gm/30 Ml Udc) 20 gm PO [facility]; Protocol Stop: 04/10/25 20:59 Last Admin: 03/11/25 21:51 Dose: 20 gm Ondansetron HCl (Ondansetron Inj 2 Mg/Ml Inj 2 Ml) 4 mg IVP Q6H PRN; Protocol PRN Reason: NAUSEA OR VOMITING Stop: 04/10/25 16:09 Discontinued Medications Diphenhydramine HCl (Diphenhydramine Inj 50 Mg/Ml Vial) 25 mg IVP X1 ONE Stop: 03/12/25 15:32 Last Admin: 03/12/25 15:33 Dose: 25 mg Epinephrine HCl (Epinephrine Inj 1 Mg/Ml Amp) 1 mg IM X1 ONE Stop: 03/12/25 15:33 Last Admin: 03/12/25 15:23 Dose: 1 mg Hydrocortisone Sodium Succinate (Hydrocortisone Sod Succ Inj 100 Mg 2 Ml Vial) 100 mg IV X1 ONE Stop: 03/12/25 15:32 Last Admin: 03/12/25 15:27 Dose: 100 mg Magnesium Sulfate (Magnesium Sulfate Ivpb) 2 gm in 50 mls @ 25 mls/hr IV X1 ONE Stop: 03/12/25 11:26 Last Admin: 03/12/25 09:51 Dose: 25 mls/hr Assessment & Plan Plan 39-year-old male with MHx of new onset seizures, syphillis, and HTN, [facility] presented after having had seizure-like activity of about 20 minutes and unresponsiveness for about half an hour. ? #Seizure-like activity Reported recurrent 10-20 min long whole-body shaking while lying on the floor unconscious, followed by episodes of unresponsiveness. Patient denies tongue biting, admits to acidic odor in his nose. Officer who is present at bedside states on some episodes there was incontinence. Given his history of syphilis and unknown titers and unknown treatment course would benefit from LP study, however patient declined at this time. EKG showed sinus rhythm CT head negative UA negative (RBC 13/hpf). UDS negative. MRI Brain w+wo con was negative for hemorrhage, mass effect, or infarct. TSH 3.43 <5, lipid panel WNL Plan: -Pending EEG to be taken -Attempted bedside LP however the patient refused stating he would like more time to think about it ? Rest of conditions to continue current management per primary team: #History of hypertension #History of syphilis Patient was discussed with the Neurology attending, Dr. Ma. Thank you for allowing us to participate in the care of this patient. Elise Polk, PGY-3 Attending Provider Attestation/Addendum I personally have seen and examined the patient at the bedside and agreed with the resident's findings, assessment and plan of care. Will continue with the Keppra, EEG showed bitemporal epileptiform discharges only in bipolar montage suggestive of seizures. Recommend repeating the EEG in 4 weeks for confirmation. MRI brain: Normal study Attempted to get consent for lumbar puncture after discussing with him the procedure for ruling out neurosyphilis as part of evaluation of new onset seizure. Patient refused and wants to think about it until his next visit with ID.
[2025-03-12] MEDS: LACTULOSE SYRUP 20 GM/30 ML UDC PO (20:18)
[2025-03-13] VITALS (8 sets, daily range): BP systolic 127–154; BP diastolic 78–98; PULSE 63–90; RESP 11–25; TEMP 35.9–36.2; O2SAT 95–97; BMI 26.1
--- NOTE | 2025-03-13 03:44 | RESP.EEG ---
EEG has been completed and is ready for MD interpretation
[2025-03-13 06:15] LABS: Basophils # (Auto) 0.0 Thou/mm3 (0.0-0.2); Basophils % (Auto) 0 % (0-2.5); Eosinophils # (Auto) 0.1 Thou/mm3 (0.0-0.5); Eosinophils % (Auto) 1 % (0-10); Hematocrit 38.2 % (41.0-53.0); Hemoglobin 12.9 g/dL (13.5-16.0); Immature Granulocytes Auto 0.02 Thou/mm3 (0.00-0.00); Lymphocytes # (Auto) 3.5 Thou/mm3 (1.0-4.8); Lymphocytes % (Auto) 30 % (10-50); Mean Corpuscular HGB Conc 33.8 g/dl (31.0-37.0); Mean Corpuscular Hemoglobin 30.1 pg (25.0-35.0); Mean Corpuscular Volume 89 fL (80-100); Monocytes # (Auto) 0.8 Thou/mm3 (0.0-0.8); Monocytes % (Auto) 7 % (0-12); Neutrophils # (Auto) 7.2 Thou/mm3 (1.8-7.7); Neutrophils % (Auto) 62 % (37-80); Nucleated Red Blood Cell # 0.00 Thou/mm3 (0.00-0.00); Nucleated Red Blood Cell % 0 /100 WBC (0); Platelet Count 345 Thou/mm3 (140-440); RDW Standard Deviation 44.2 fL (35.1-43.9); Red Blood Count 4.29 Miln/mm3 (4.50-5.90); White Blood Count 11.7 Thou/mm3 (3.8-10.6)
[2025-03-13 06:55] LABS: Alanine Aminotransferase 37 U/L (10-49); Albumin, Serum 4.1 gm/dL (3.5-5.0); Albumin/Globulin Ratio 1.5 (1.2-2.2); Alkaline Phosphatase 82 U/L (46-116); Anion Gap 8 (7-16); Aspartate Amino Transferase 26 U/L (0-34); BUN/Creatinine Ratio 11 Ratio (12-20); Bilirubin,Total 0.2 mg/dL (0.3-1.2); Blood Urea Nitrogen 10 mg/dL (9-23); Calcium 9.0 mg/dL (8.3-10.6); Calcium (Corrected) 9.0 mg/dL (8.5-10.1); Carbon Dioxide 30.0 mMol/L (20.0-31.0); Chloride 104 mMol/L (98-107); Creatinine (Component) 0.9 mg/dL (0.6-1.3); Estimated Creatinine Clearance 121.0 mL/min (>60); Globulin 2.8 gm/dL (2.3-3.5); Glucose 101 mg/dL (74-106); Magnesium 1.9 mg/dL (1.6-2.6); Osmolality,Calculated 282 (275-295); Phosphorous 3.6 mg/dL (2.4-5.1); Potassium 4.3 mMol/L (3.4-5.1); Sodium 142 mMol/L (136-145); Total Protein 6.9 gm/dL (5.7-8.2); eGFR > 60 See Note
[2025-03-13 07:19] LABS: Hepatitis C Antibody Non Reactive (Non React)
[2025-03-13] MEDS: ACETAMINOPHEN 325 MG TABLET 650 MG PO (08:02)
[2025-03-13] MEDS: ENOXAPARIN SOD INJ 40 MG/0.4 ML SYRINGE SC (08:02)
[2025-03-13] MEDS: RINGERS LACTATED 1000 ML 1,000 ML 75 ML IV (10:57)
--- NOTE | 2025-03-13 11:40 | ESPR_ITS ---
Documentation for date of: 03/13/25 Subjective Subjective Interval history: Patient was seen and examined at bedside. No acute events took place overnight. Patient admits to occipital CADET, chest pain worse with palpation, and abdominal bloating (has BM) Patient states that he had been diagnosed with syphilis about 2 months ago after concerns verena by his girlfriend.? Unsure how long did he have it before. He denies fevers, tremors, confusion, unresponsiveness overnight. Patient stayed in NSR overnight. BP 154/96, RR 25, Given APAP for CADET WBC 11.7, CK 196, Hep C non reactive. Pending syphilis Ab titers, HIV 1&2 Exam Vital Signs Temp Pulse Resp BP Pulse Ox O2 Del Method O2 Flow Rate 96.8 F 76 14 154/96 H 96 Room Air 2 03/13/25 08:00 03/13/25 08:03 03/13/25 08:00 03/13/25 08:03 03/13/25 08:00 03/13/25 08:00 03/12/25 16:00 Narrative Exam General: Alert and oriented x3, No apparent distress. Skin: Intact, Warm, no rashes. HEENT: Normocephalic, Atraumatic. Normal neck range of motion, Supple. Trachea midline. Respiratory: Lungs are clear to auscultation. Breath sounds are equal bilaterally with good, symmetric chest expansion. Cardiovascular: RRR, normal S1, S2, No murmurs. Distal pulses 2+ Abdomen: Abdomen non-distended, without erythema, or lesions. Normotensive bowel sounds x4. Percussion tympanic. Palpation soft, nontender in all four quadrants. No organomagely. Absent rigidity, guarding, or rebound. Musculoskeletal/Extremities: No erythema, swelling, tenderness of any joints. No edema of BLE. DP pulses +2/3 b/l. Full active ROM of all four extremities. Neurologic: NEURO: Oriented x3, cranial nerves II to XII grossly intact. Muscle strength 5/5 on UE and LE b/l, Moves extremities x4. Sensation intact to gross touch along C6-T1 and L2-S1 dermatomes. No focal neurologic deficits noted Psych: Thoughts linear and responses appropriate. Objective Labs 03/14/25 04:25 03/14/25 04:25 Labs: Laboratory Results - last 24 hr 03/12/25 03/13/25 15:30 05:27 WBC 9.0 11.7 H RBC 4.75 4.29 L Hgb 14.0 12.9 L Hct 42.6 38.2 L MCV 90 89 MCH 29.5 30.1 MCHC 32.9 33.8 RDW Std Deviation 43.8 44.2 H Plt Count 420 D 345 D Neut % (Auto) 56 62 Lymph % (Auto) 35 30 [place] % (Auto) 6 7 Eos % (Auto) 1 1 Baso % (Auto) 1 0 Neut # (Auto) 5.0 7.2 Lymph # (Auto) 3.2 3.5 [place] # (Auto) 0.5 0.8 Eos # (Auto) 0.1 0.1 Baso # (Auto) 0.1 0.0 Immature Gran # (Auto) 0.02 H 0.02 H Absolute Nucleated RBC 0.00 0.00 Immature Gran % 0 0 Nucleated RBC % 0 0 Sodium 139 142 Potassium 4.0 4.3 Chloride 102 104 Carbon Dioxide 28.5 30.0 Anion Gap 9 8 BUN 11 10 Creatinine 1.1 0.9 Estim Creat Clear Calc 99.0 121.0 eGFR > 60 > 60 BUN/Creatinine Ratio 10 L 11 L Glucose 96 101 Calculated Osmolality 276 282 Calcium 9.4 9.0 Corrected Calcium 9.4 9.0 Phosphorus 3.6 Magnesium 1.9 Total Bilirubin 0.3 0.2 L AST 22 26 ALT 29 37 Alkaline Phosphatase 105 82 D Total Creatine Kinase 196 H D Total Protein 7.8 6.9 Albumin 4.8 D 4.1 D Globulin 3.0 2.8 Albumin/Globulin Ratio 1.6 1.5 Hepatitis C Antibody Non Reactive Quality Measures Quality Measures none Assessment & Plan Assessment Current Active Medications: Generic Name Dose Route Start Last Admin Trade Name Freq PRN Reason Stop Dose Admin Acetaminophen 650 mg 03/11/25 16:10 03/13/25 08:02 Acetaminophen 325 Mg Tablet PO 04/10/25 16:09 650 mg Q6H PRN Administration Fever >100.4 Acetaminophen 650 mg 03/11/25 16:10 03/12/25 03:30 Acetaminophen 325 Mg Tablet PO 04/10/25 16:09 650 mg Q6H PRN Administration PAIN SCALE 1-3 (mild Hydrocodone Bitart/Acetaminophen 1 tab 03/11/25 16:15 Hydrocodone/Apap 5/325 Tablet PO 03/16/25 16:14 Q4HR PRN PAIN SCALE 4-10(Mod-Sev Amlodipine Besylate 5 mg 03/12/25 09:00 03/13/25 08:03 Amlodipine Besylate 5 Mg Tablet PO 04/11/25 08:59 5 mg QDAY GINA Administration Diazepam 5 mg 03/11/25 16:18 Diazepam Inj 5 Mg/Ml Vial 2 Ml IVP 03/16/25 16:17 Q15MIN PRN seizure Enoxaparin Sodium 40 mg 03/12/25 09:00 03/13/25 08:02 Enoxaparin Sod Inj 40 Mg/0.4 Ml Syringe SC 03/26/25 08:59 40 mg QDAY GINA Administration Lactated Ringer's 1,000 mls @ 75 mls/hr 03/11/25 16:15 03/13/25 10:57 Lactated Ringers IV 04/10/25 16:14 75 mls/hr .[id number] GINA Administration Lactulose 20 gm 03/11/25 21:00 03/12/25 20:18 Lactulose Syrup 20 Gm/30 Ml Udc PO 04/10/25 20:59 20 gm HS GINA Administration Protocol Ondansetron HCl 4 mg 03/11/25 16:10 Ondansetron Inj 2 Mg/Ml Inj 2 Ml IVP 04/10/25 16:09 Q6H PRN NAUSEA OR VOMITING Protocol Plan 39-year-old male with MHx of new onset seizures, syphillis, and HTN, [facility] presented after having had seizure-like activity of about 20 minutes and unresponsiveness for about half an hour. ? #Seizure-like activity Recurrent 10-20min long whole-body shaking while lying on the floor unconscious, followed by episodes of unresponsiveness. Patient denies tongue biting, admits to acidic odor in his nose. EKG showed sinus rhythm CT head negative UA negative (RBC 13/hpf). UDS negative. ? MRI Brain w+wo con was negative for hemorrhage, mass effect, or infarct. + TSH 3.43 <5, lipid panel WNL ? EEG was abnormal with localized spike and wave activity in both temporal areas suggestive of seizures.? Repeat in 4 weeks.? Plan: -Neurology, Dr Ma, consulted; appreciate recommendations -Keppra PO 1g bid -Diazepam IVP 5mg Q15min for max of 3 doses -LR @75mL/h -Seizure precautions -Multimodal pain control with APAP 650mg for mild and [place] 5/325 for moderate to severe pain -Daily CBC, CMP, Mg, Phos ? #Syphilis, per Hx #High Risk Sexual Activity Patient reports hx of multiple sexual partners and no protection use. He states that he was recently diagnosed with syphilis and started on doxycycline. Reports to have received treatment already. +Syphilis serology (+) Negative HIV Ag/Ab 1&2 test Plan: -pending MHA-TP Ab titers -ID consulted for concerns of neurosyphilis; appreciate recommendations -Dr Ma team will reach back regarding necessity of LP test. -although patient admits to the name doxycycline, this is not in his confirmed med list. ? #HTN BP at the time of presentation was 160/113 -Started amlodipine PO 5mg Qday ? #Substance use Patient reports history of methamphetamine use, marijuana use, and having been treated with Narcan and Suboxone for opioid withdrawal. #Contrast Allergy Patient developed facial erythema and swelling after administration of contrast for MRI brain. He was confused, A&O x1, and improved after being given epinephrine 1 mg. He was also given hydrocortisone IV 100mg and Benedryl 25mg. Patient was mildy tremulous subsequently, but became immediately responsive, A&O x3, and atopy improved. ? Health Maintenance: Disposition: Telemetry Diet: Routine PPx DVT: Lovenox SC 40mg Qday Code Status: Full ? This case was discussed with my attending physician, Dr. Morris, and senior resident, Dr Jarquin. Even though this this note was carefully revised there may still be minor errors in street supervisor due to voice recognition software. Roro Peña, DO PGY I Senior Resident Attestation: The patient's EEG done overnight was abnormal, and was suspicious for abnormal spikes suggestive of seizure. He was recommended to follow-up 4 weeks later. He is pending lumbar puncture, that he reported would need time to decide. Otherwise, he reported doing well. I discussed with and supervised the nutrition internship physician involved in the care of this patient. I personally saw and examined the patient and discussed the assessment and plan with the entire medicine team, including my attending. I agree with the assessment and plan as documented above. Jadiel Jarquin MD PGY3 Internal Medicine Attending Provider Attestation/Addendum I have discussed and was present for the essential components of the history, physical examination, diagnosis, and treatment plan with the resident. I agree with the patient's care as documented by the resident and amended herein by me. Jorge Morris, DO. Although this document has been carefully reviewed, there may still be some phonetic and other typographical errors. These errors are purely grammatical due to imperfections in the software program and should not be construed in any way to compromise the substance of the patient's medical care during this visit. Patient seen and evaluated this AM. No acute events overnight, vital signs stable, patient afebrile, significant labs include a WBC of 11.7, hemoglobin stable at 12.9, BMP largely unremarkable. Trichomonas palladium serology still pending, HIV pending, for the patient's reported seizure activity, will restart Keppra per neurology recommendations today, p.o. 1 g twice daily, for the patient's syphilis, infectious diseases consulted, antibiotic titers still pending, patient may be a amenable for LP today, we talked about risk versus benefits today and he stated he would make a decision for neurology once they round, we are holding off on any syphilis treatment for now until antibody titers result. Will continue to monitor closely.
[2025-03-13 15:20] LABS: HIV (1&2) Antibody Rapid Non-Reactive
--- NOTE | 2025-03-13 15:50 | ESPR_ITS ---
Documentation for date of: 03/13/25 Subjective Subjective Interval history: Patient was seen at bedside in Tele, he is awake and reports feeling better today. No seizures were noted overnight. EEG showed localized spike and wave activity noted in both temporal areas suggestive of seizures, 4 week follow up EEG is recommended to confirm the epileptiform findings. Restarted patient's Keppra 1000 mg BID. Patient states he has thought about the lumbar puncture and is agreeable but does report anxiety with the procedure. Will be scheduled with IR tomorrow morning. Still awaiting syphilis confirmatory test. Exam Vital Signs Temp Pulse Resp BP Pulse Ox O2 Del Method O2 Flow Rate 96.6 F L 69 11 L 149/98 H 97 Room Air 2 03/13/25 12:00 03/13/25 12:00 03/13/25 12:00 03/13/25 12:00 03/13/25 12:00 03/13/25 12:00 03/12/25 16:00 Narrative Exam Physical Exam General: Awake and mildly anxious. Conversational and non-toxic appearing. HEENT: Normocephalic, atraumatic, mucous membranes moist. Heart: Regular rate and rhythm, normal S1 and S2, no murmurs. Lungs: Clear to auscultation with no wheezing or crackles. Abdomen: Soft, nondistended, nontender, positive bowel sounds. ?No guarding or rebound tenderness. Neurologic: Alert and oriented x3, no gross neurological deficit, and patient able to move all 4 extremities. Extremities: No edema. Skin: No rash or ecchymoses. Objective Labs 03/14/25 04:25 03/14/25 04:25 Labs: Laboratory Results - last 24 hr 03/12/25 03/13/25 15:30 05:27 WBC 11.7 H RBC 4.29 L Hgb 12.9 L Hct 38.2 L MCV 89 MCH 30.1 MCHC 33.8 RDW Std Deviation 44.2 H Plt Count 345 D Neut % (Auto) 62 Lymph % (Auto) 30 [place] % (Auto) 7 Eos % (Auto) 1 Baso % (Auto) 0 Neut # (Auto) 7.2 Lymph # (Auto) 3.5 [place] # (Auto) 0.8 Eos # (Auto) 0.1 Baso # (Auto) 0.0 Immature Gran # (Auto) 0.02 H Absolute Nucleated RBC 0.00 Immature Gran % 0 Nucleated RBC % 0 Sodium 139 142 Potassium 4.0 4.3 Chloride 102 104 Carbon Dioxide 28.5 30.0 Anion Gap 9 8 BUN 11 10 Creatinine 1.1 0.9 Estim Creat Clear Calc 99.0 121.0 eGFR > 60 > 60 BUN/Creatinine Ratio 10 L 11 L Glucose 96 101 Calculated Osmolality 276 282 Calcium 9.4 9.0 Corrected Calcium 9.4 9.0 Phosphorus 3.6 Magnesium 1.9 Total Bilirubin 0.3 0.2 L AST 22 26 ALT 29 37 Alkaline Phosphatase 105 82 D Total Creatine Kinase 196 H D Total Protein 7.8 6.9 Albumin 4.8 D 4.1 D Globulin 3.0 2.8 Albumin/Globulin Ratio 1.6 1.5 Hepatitis C Antibody Non Reactive HIV 1&2 Antibody Rapid Non-Reactive Quality Measures Quality Measures none Assessment & Plan Assessment Current Active Medications: Generic Name Dose Route Start Last Admin Trade Name Freq PRN Reason Stop Dose Admin Acetaminophen 650 mg 03/11/25 16:10 03/13/25 08:02 Acetaminophen 325 Mg Tablet PO 04/10/25 16:09 650 mg Q6H PRN Administration Fever >100.4 Acetaminophen 650 mg 03/11/25 16:10 03/12/25 03:30 Acetaminophen 325 Mg Tablet PO 04/10/25 16:09 650 mg Q6H PRN Administration PAIN SCALE 1-3 (mild Hydrocodone Bitart/Acetaminophen 1 tab 03/11/25 16:15 Hydrocodone/Apap 5/325 Tablet PO 03/16/25 16:14 Q4HR PRN PAIN SCALE 4-10(Mod-Sev Amlodipine Besylate 5 mg 03/12/25 09:00 03/13/25 08:03 Amlodipine Besylate 5 Mg Tablet PO 04/11/25 08:59 5 mg QDAY GINA Administration Diazepam 5 mg 03/11/25 16:18 Diazepam Inj 5 Mg/Ml Vial 2 Ml IVP 03/16/25 16:17 Q15MIN PRN seizure Enoxaparin Sodium 40 mg 03/12/25 09:00 03/13/25 08:02 Enoxaparin Sod Inj 40 Mg/0.4 Ml Syringe SC 03/26/25 08:59 40 mg QDAY GINA Administration Lactated Ringer's 1,000 mls @ 75 mls/hr 03/11/25 16:15 03/13/25 10:57 Lactated Ringers IV 04/10/25 16:14 75 mls/hr .[id number] GINA Administration Lactulose 20 gm 03/11/25 21:00 03/12/25 20:18 Lactulose Syrup 20 Gm/30 Ml Udc PO 04/10/25 20:59 20 gm HS GINA Administration Protocol Levetiracetam 1,000 mg 03/13/25 21:00 Levetiracetam 250 Mg Tablet PO 04/12/25 20:59 BID GINA Ondansetron HCl 4 mg 03/11/25 16:10 Ondansetron Inj 2 Mg/Ml Inj 2 Ml IVP 04/10/25 16:09 Q6H PRN NAUSEA OR VOMITING Protocol Plan 39-year-old male with past medical history of new onset seizures, syphillis, and HTN, [facility] presented on 03/11/2025 after having had seizure-like activity of about 20 minutes and unresponsiveness for about half an hour. Neurology was consulted for further management of seizures. ? #Seizure-like activity Reported recurrent 10-20 min long whole-body shaking while lying on the floor unconscious, followed by episodes of unresponsiveness. Patient denies tongue biting, admits to acidic odor in his nose. Officer who is present at bedside states on some episodes there was incontinence. Given his history of syphilis and unknown titers and unknown treatment course would benefit from LP study, however patient declined at this time. EKG showed sinus rhythm CT head negative UA negative (RBC 13/hpf). UDS negative. MRI Brain w+wo con was negative for hemorrhage, mass effect, or infarct. TSH 3.43 <5, lipid panel WNL -EEG showed localized spike and wave activity noted in both temporal areas suggestive of seizures Plan: -4 week follow up EEG is recommended to confirm the epileptiform findings -Restarted patient's Keppra 1000 mg BID -LP with IR scheduled for tomorrow morning ? Rest of conditions to continue current management per primary team: #History of hypertension #History of syphilis Patient was discussed with the Neurology attending, Dr. Ma. Thank you for allowing us to participate in the care of this patient. Elise Polk, PGY-3 Attending Provider Attestation/Addendum I personally have seen and examined the patient at the bedside and agreed with the resident's findings, assessment and plan of care. Will continue with the Keppra 1000 mg twice a day by following seizure precautions. Patient agreed for lumbar puncture which could be done by interventional radiology tomorrow. Treponemal confirmatory test for syphilis pending.
[2025-03-13] MEDS: LACTULOSE SYRUP 20 GM/30 ML UDC PO (20:04)
--- NOTE | 2025-03-13 22:10 | PC.NURSE ---
Patient and belongings moved to [address] [employer] continues to be at bedside
[2025-03-14] VITALS (8 sets, daily range): BP systolic 120–157; BP diastolic 78–106; PULSE 70–95; RESP 15–18; TEMP 36.3–37; O2SAT 95–99; BMI 27.1
[2025-03-14] MEDS: RINGERS LACTATED 1000 ML 1,000 ML 75 ML IV ×2 (01:20→17:05)
[2025-03-14 05:36] LABS: Basophils # (Auto) 0.1 Thou/mm3 (0.0-0.2); Basophils % (Auto) 1 % (0-2.5); Eosinophils # (Auto) 0.2 Thou/mm3 (0.0-0.5); Eosinophils % (Auto) 2 % (0-10); Hematocrit 41.0 % (41.0-53.0); Hemoglobin 13.4 g/dL (13.5-16.0); Immature Granulocytes Auto 0.01 Thou/mm3 (0.00-0.00); Lymphocytes # (Auto) 3.0 Thou/mm3 (1.0-4.8); Lymphocytes % (Auto) 37 % (10-50); Mean Corpuscular HGB Conc 32.7 g/dl (31.0-37.0); Mean Corpuscular Hemoglobin 29.5 pg (25.0-35.0); Mean Corpuscular Volume 90 fL (80-100); Monocytes # (Auto) 0.6 Thou/mm3 (0.0-0.8); Monocytes % (Auto) 8 % (0-12); Neutrophils # (Auto) 4.2 Thou/mm3 (1.8-7.7); Neutrophils % (Auto) 52 % (37-80); Nucleated Red Blood Cell # 0.00 Thou/mm3 (0.00-0.00); Nucleated Red Blood Cell % 0 /100 WBC (0); Platelet Count 401 Thou/mm3 (140-440); RDW Standard Deviation 44.2 fL (35.1-43.9); Red Blood Count 4.54 Miln/mm3 (4.50-5.90); White Blood Count 8.1 Thou/mm3 (3.8-10.6)
[2025-03-14 06:06] LABS: Alanine Aminotransferase 47 U/L (10-49); Albumin, Serum 4.5 gm/dL (3.5-5.0); Albumin/Globulin Ratio 1.6 (1.2-2.2); Alkaline Phosphatase 89 U/L (46-116); Anion Gap 10 (7-16); Aspartate Amino Transferase 27 U/L (0-34); BUN/Creatinine Ratio 10 Ratio (12-20); Bilirubin,Total 0.4 mg/dL (0.3-1.2); Blood Urea Nitrogen 9 mg/dL (9-23); Calcium 9.4 mg/dL (8.3-10.6); Calcium (Corrected) 9.4 mg/dL (8.5-10.1); Carbon Dioxide 29.9 mMol/L (20.0-31.0); Chloride 103 mMol/L (98-107); Creatinine (Component) 0.9 mg/dL (0.6-1.3); Estimated Creatinine Clearance 121.0 mL/min (>60); Globulin 2.9 gm/dL (2.3-3.5); Glucose 96 mg/dL (74-106); Magnesium 1.9 mg/dL (1.6-2.6); Osmolality,Calculated 283 (275-295); Phosphorous 4.2 mg/dL (2.4-5.1); Potassium 4.3 mMol/L (3.4-5.1); Sodium 143 mMol/L (136-145); Total Protein 7.4 gm/dL (5.7-8.2); eGFR > 60 See Note
--- NOTE | 2025-03-14 07:44 | XR_ITS ---
EXAMINATION: Diagnostic lumbar puncture AP lumbar spine 2 views Fluoroscopy Date and time: February, 1310 hours INDICATIONS: Seizures, unknown etiology this week TECHNIQUE AND FINDINGS: Informed consent provided. Timeout performed. Skin prepped over the lower back and sterile drape applied hand hygiene 1% lidocaine administered for local anesthesia Utilizing fluoroscopic guidance successful lumbar puncture at L5-S1 level Opening pressures 6 10 cc clear fluid withdrawn Estimated blood loss 0 cc Fluoroscopy 0.3-minute radiation dose 14.26 mGy 2 spot fluoroscopic lumbar spine films IMPRESSION: Successful diagnostic lumbar puncture as above
--- NOTE | 2025-03-14 07:50 | PD.IDPROG ---
Subjective Subjective Interval history: no csf noted. no rpr from [facility] either. odd. pt apparently declined LP per neuro note I will see fridy if still here as syphilis screen in process at [facility] lab. or you can call them if faster answer desired. Exam Vital Signs Temp Pulse Resp BP Pulse Ox O2 Del Method O2 Flow Rate 98.4 F 85 15 126/82 97 Room Air 2 03/14/25 04:00 03/14/25 07:46 03/14/25 04:00 03/14/25 04:00 03/14/25 04:00 03/14/25 04:00 03/12/25 16:00 Narrative Exam no further sz noted. I called the [facility] lab where syphilis screens are sent they will call when results are complete. Objective - Internal Medicine Labs 03/14/25 04:25 03/14/25 04:25 Labs: Laboratory Results - last 24 hr 03/13/25 03/14/25 05:27 04:25 WBC 8.1 RBC 4.54 Hgb 13.4 L Hct 41.0 MCV 90 MCH 29.5 MCHC 32.7 RDW Std Deviation 44.2 H Plt Count 401 D Neut % (Auto) 52 Lymph % (Auto) 37 [place] % (Auto) 8 Eos % (Auto) 2 Baso % (Auto) 1 Neut # (Auto) 4.2 Lymph # (Auto) 3.0 [place] # (Auto) 0.6 Eos # (Auto) 0.2 Baso # (Auto) 0.1 Immature Gran # (Auto) 0.01 H Absolute Nucleated RBC 0.00 Immature Gran % 0 Nucleated RBC % 0 Sodium 143 Potassium 4.3 Chloride 103 Carbon Dioxide 29.9 Anion Gap 10 BUN 9 Creatinine 0.9 Estim Creat Clear Calc 121.0 eGFR > 60 BUN/Creatinine Ratio 10 L Glucose 96 Calculated Osmolality 283 Calcium 9.4 Corrected Calcium 9.4 Phosphorus 4.2 Magnesium 1.9 Total Bilirubin 0.4 AST 27 ALT 47 Alkaline Phosphatase 89 Total Protein 7.4 Albumin 4.5 Globulin 2.9 Albumin/Globulin Ratio 1.6 HIV 1&2 Antibody Rapid Non-Reactive Assessment & Plan A&P Narrative pos rpr . no titer available. he went to [facility] so prior titer may be there treated at [facility] po doxy ok for now as pen hard to come by syphilis is more common in [facility] population but he can not say when last sex was. hiv neg I have no objection to LP and csf for vdrl, but sz are common. and if titer low, may not be needed. added hiv and hep c screen to w/u for am Time Spent With Patient Time: Total time spent is greater than 50% in coordination of care (as documented) at patient's floor/unit and/or counseling patient:
[2025-03-14] MEDS: DOXYCYCLINE 100 MG TABLET PO ×2 (09:07→21:01)
--- NOTE | 2025-03-14 09:10 | PC.SS ---
Follow up note: Lumbar puncture pending. Pt will return with deputy back to incarceration.
--- NOTE | 2025-03-14 10:11 | ESPR_ITS ---
Documentation for date of: 03/14/25 Subjective Subjective Interval history: Patient was seen and examined at bedside. No acute events took place overnight. Patient admits to occipital CADET, chest pain worse with palpation, and abdominal bloating (has BM), which improved after bowel movement. After having taken Keppra, patient woke up couple times shaky thinking that he had underwent seizure. Denies loss of consciousness, unresponsiveness, lesions to his body, abnormal smells in the nose, tongue bites. Patient states that he had been diagnosed with syphilis about 2 months ago after concerns verena by his girlfriend.? Unsure how long did he have it before. He denies fevers, tremors, confusion, unresponsiveness overnight. Patient stayed in NSR overnight. BP 154/96, RR 25, Given APAP for CADET WBC 11.7, CK 196, Hep C non reactive. Pending syphilis Ab titers, HIV 1&2 Exam Vital Signs Temp Pulse Resp BP Pulse Ox O2 Del Method O2 Flow Rate 97.3 F 92 16 157/93 H 97 Room Air 2 03/14/25 08:00 03/14/25 09:06 03/14/25 08:00 03/14/25 09:06 03/14/25 08:00 03/14/25 08:00 03/12/25 16:00 Narrative Exam General: Alert and oriented x3, No apparent distress. Skin: Intact, Warm, no rashes. HEENT: Normocephalic, Atraumatic. Normal neck range of motion, Supple. Trachea midline. Respiratory: Lungs are clear to auscultation. Breath sounds are equal bilaterally with good, symmetric chest expansion. Cardiovascular: RRR, normal S1, S2, No murmurs. Distal pulses 2+ Abdomen: Abdomen non-distended, without erythema, or lesions. Normotensive bowel sounds x4. Percussion tympanic. Palpation soft, nontender in all four quadrants. No organomagely. Absent rigidity, guarding, or rebound. Musculoskeletal/Extremities: No erythema, swelling, tenderness of any joints. No edema of BLE. DP pulses +2/3 b/l. Full active ROM of all four extremities. Neurologic: NEURO: Oriented x3, cranial nerves II to XII grossly intact. Muscle strength 5/5 on UE and LE b/l, Moves extremities x4. Sensation intact to gross touch along C6-T1 and L2-S1 dermatomes. No focal neurologic deficits noted Psych: Thoughts linear and responses appropriate. Objective Labs 03/14/25 04:25 03/14/25 04:25 Labs: Laboratory Results - last 24 hr 03/13/25 03/14/25 05:27 04:25 WBC 8.1 RBC 4.54 Hgb 13.4 L Hct 41.0 MCV 90 MCH 29.5 MCHC 32.7 RDW Std Deviation 44.2 H Plt Count 401 D Neut % (Auto) 52 Lymph % (Auto) 37 [place] % (Auto) 8 Eos % (Auto) 2 Baso % (Auto) 1 Neut # (Auto) 4.2 Lymph # (Auto) 3.0 [place] # (Auto) 0.6 Eos # (Auto) 0.2 Baso # (Auto) 0.1 Immature Gran # (Auto) 0.01 H Absolute Nucleated RBC 0.00 Immature Gran % 0 Nucleated RBC % 0 Sodium 143 Potassium 4.3 Chloride 103 Carbon Dioxide 29.9 Anion Gap 10 BUN 9 Creatinine 0.9 Estim Creat Clear Calc 121.0 eGFR > 60 BUN/Creatinine Ratio 10 L Glucose 96 Calculated Osmolality 283 Calcium 9.4 Corrected Calcium 9.4 Phosphorus 4.2 Magnesium 1.9 Total Bilirubin 0.4 AST 27 ALT 47 Alkaline Phosphatase 89 Total Protein 7.4 Albumin 4.5 Globulin 2.9 Albumin/Globulin Ratio 1.6 HIV 1&2 Antibody Rapid Non-Reactive Quality Measures Quality Measures none Assessment & Plan Assessment Current Active Medications: Generic Name Dose Route Start Last Admin Trade Name Pinedaq PRN Reason Stop Dose Admin Acetaminophen 650 mg 03/11/25 16:10 03/13/25 08:02 Acetaminophen 325 Mg Tablet PO 04/10/25 16:09 650 mg Q6H PRN Administration Fever >100.4 Acetaminophen 650 mg 03/11/25 16:10 03/12/25 03:30 Acetaminophen 325 Mg Tablet PO 04/10/25 16:09 650 mg Q6H PRN Administration PAIN SCALE 1-3 (mild Hydrocodone Bitart/Acetaminophen 1 tab 03/11/25 16:15 Hydrocodone/Apap 5/325 Tablet PO 03/16/25 16:14 Q4HR PRN PAIN SCALE 4-10(Mod-Sev Amlodipine Besylate 5 mg 03/12/25 09:00 03/14/25 09:06 Amlodipine Besylate 5 Mg Tablet PO 04/11/25 08:59 5 mg QDAY GINA Administration Diazepam 5 mg 03/11/25 16:18 Diazepam Inj 5 Mg/Ml Vial 2 Ml IVP 03/16/25 16:17 Q15MIN PRN seizure Doxycycline Hyclate 100 mg 03/14/25 09:00 03/14/25 09:07 Doxycycline 100 Mg Tablet PO 03/21/25 08:59 100 mg BID GINA Administration Enoxaparin Sodium 40 mg 03/12/25 09:00 03/13/25 08:02 Enoxaparin Sod Inj 40 Mg/0.4 Ml Syringe SC 03/26/25 08:59 40 mg QDAY GINA Administration Lactated Ringer's 1,000 mls @ 75 mls/hr 03/11/25 16:15 03/14/25 01:20 Lactated Ringers IV 04/10/25 16:14 75 mls/hr .[id number] GINA Administration Lactulose 20 gm 03/11/25 21:00 03/13/25 20:04 Lactulose Syrup 20 Gm/30 Ml Udc PO 04/10/25 20:59 20 gm HS GINA Administration Protocol Levetiracetam 1,000 mg 03/13/25 21:00 03/14/25 09:06 Levetiracetam 250 Mg Tablet PO 04/12/25 20:59 1,000 mg BID GINA Administration Ondansetron HCl 4 mg 03/11/25 16:10 Ondansetron Inj 2 Mg/Ml Inj 2 Ml IVP 04/10/25 16:09 Q6H PRN NAUSEA OR VOMITING Protocol Plan 39-year-old male with MHx of new onset seizures, syphillis, and HTN, [facility] presented after having had seizure-like activity of about 20 minutes and unresponsiveness for about half an hour. ? #Seizure-like activityPossibly secondary to neurosyphilis however exact etiology unknown Recurrent 10-20min long whole-body shaking while lying on the floor unconscious, followed by episodes of unresponsiveness. Patient denies tongue biting, admits to acidic odor in his nose. EKG showed sinus rhythm CT head negative UA negative (RBC 13/hpf). UDS negative. ? MRI Brain w+wo con was negative for hemorrhage, mass effect, or infarct. + TSH 3.43 <5, lipid panel WNL ? EEG was abnormal with localized spike and wave activity in both temporal areas suggestive of seizures.? Repeat in 4 weeks.? Plan: -Neurology, Dr Ma, consulted; appreciate recommendations -4 week follow up EEG is recommended to confirm the epileptiform findings -Restarted patient's Keppra 1000 mg BID -XR LP today with f/u CSF study -Diazepam IVP 5mg Q15min for max of 3 doses -LR @75mL/h -Seizure precautions -Multimodal pain control with APAP 650mg for mild and [place] 5/325 for moderate to severe pain -Daily CBC, CMP, Mg, Phos ? #Syphilis, per Hx #High Risk Sexual Activity Patient reports hx of multiple sexual partners and no protection use. He states that he was recently diagnosed with syphilis and started on doxycycline. Reports to have received treatment already. +Syphilis serology (+) Negative HIV Ag/Ab 1&2 test and Hep C Ab Plan: --Doxycycline PO 100mg BID for 14 days (03/14 -) -pending MHA-TP Ab titers -ID consulted for concerns of neurosyphilis; appreciate recommendations -Dr Ma team will reach back regarding necessity of LP test. -although patient admits to the name doxycycline, this is not in his confirmed med list. ? #HTN BP at the time of presentation was 160/113 -Started amlodipine PO 5mg Qday ? #Substance use Patient reports history of methamphetamine use, marijuana use, and having been treated with Narcan and Suboxone for opioid withdrawal. #Contrast Allergy Patient developed facial erythema and swelling after administration of contrast for MRI brain. He was confused, A&O x1, and improved after being given epinephrine 1 mg. He was also given hydrocortisone IV 100mg and Benedryl 25mg. Patient was mildy tremulous subsequently, but became immediately responsive, A&O x3, and atopy improved. ? Health Maintenance: Disposition: Telemetry Diet: Routine PPx DVT: Lovenox SC 40mg Qday Code Status: Full ? This case was discussed with my attending physician, Dr. Morris, and senior resident, Dr Jarquin. Even though this this note was carefully revised there may still be minor errors in assistant product manager due to voice recognition software. Roro Peña, DO PGY I Senior Resident Attestation: The patient reports doing well this morning. He was supposed to get lumbar puncture, and after CSF analysis we will decide the patient's disposition. We will continue the patient on Keppra thousand mg twice daily. I discussed with and supervised the civil engineering intern physician involved in the care of this patient. I personally saw and examined the patient and discussed the assessment and plan with the entire medicine team, including my attending. I agree with the assessment and plan as documented above. Jadiel Jarquin MD PGY3 Internal Medicine Attending Provider Attestation/Addendum I have discussed and was present for the essential components of the history, physical examination, diagnosis, and treatment plan with the resident. I agree with the patient's care as documented by the resident and amended herein by me. Jorge Morris DO. Although this document has been carefully reviewed, there may still be some phonetic and other typographical errors. These errors are purely grammatical due to imperfections in the software program and should not be construed in any way to compromise the substance of the patient's medical care during this visit.
[2025-03-14 13:58] LABS: CSF Cell Count Tube # Tube # 4; CSF Color Colorless (Colorless); CSF, Appearance Clear (Clear)
[2025-03-14 13:59] LABS: CSF Red Blood Cell 0 /cmm; CSF White Blood Cell 0 /cmm
[2025-03-14 14:14] LABS: Glucose,CSF 61 mg/dL (40-70); Protein Total,CSF 34 mg/dL (8-32)
[2025-03-14 14:49] LABS: CSF Gram Stain Alert Gram Stain Completed
--- NOTE | 2025-03-14 19:01 | PD.RESPRO ---
Documentation for date of: 03/14/25 Subjective Subjective Interval history: Patient was seen after LP, he reports a mild headache but states that it was not as bad as he thought. CSF initial fluid studies are normal, pending VDRL. Exam Vital Signs Temp Pulse Resp BP Pulse Ox O2 Del Method O2 Flow Rate 97.4 F 93 17 133/84 H 96 Room Air 2 03/15/25 04:00 03/15/25 04:00 03/15/25 04:00 03/15/25 04:00 03/15/25 04:00 03/15/25 04:00 03/12/25 16:00 Narrative Exam Physical Exam General: Awake and in no acute distress. Conversational and non-toxic appearing. HEENT: Normocephalic, atraumatic, mucous membranes moist. Heart: Regular rate and rhythm, normal S1 and S2, no murmurs. Lungs: Clear to auscultation with no wheezing or crackles. Abdomen: Soft, nondistended, nontender, positive bowel sounds. ?No guarding or rebound tenderness. Neurologic: Alert and oriented x3, no gross neurological deficit, and patient able to move all 4 extremities. Extremities: No edema. Skin: No rash or ecchymoses. Objective Labs 03/15/25 05:09 03/15/25 05:09 Labs: Laboratory Results - last 24 hr 03/14/25 03/14/25 03/15/25 04:25 13:10 05:09 WBC 7.6 RBC 4.54 Hgb 13.2 L Hct 40.6 L MCV 89 MCH 29.1 MCHC 32.5 RDW Std Deviation 43.6 Plt Count 365 D Neut % (Auto) 54 Lymph % (Auto) 33 [place] % (Auto) 10 Eos % (Auto) 2 Baso % (Auto) 1 Neut # (Auto) 4.1 Lymph # (Auto) 2.5 [place] # (Auto) 0.8 Eos # (Auto) 0.1 Baso # (Auto) 0.1 Immature Gran # (Auto) 0.02 H Absolute Nucleated RBC 0.00 Immature Gran % 0 Nucleated RBC % 0 Sodium 143 Potassium 4.3 Chloride 103 Carbon Dioxide 29.9 Anion Gap 10 BUN 9 Creatinine 0.9 Estim Creat Clear Calc 121.0 eGFR > 60 BUN/Creatinine Ratio 10 L Glucose 96 Calculated Osmolality 283 Calcium 9.4 Corrected Calcium 9.4 Phosphorus 4.2 Magnesium 1.9 Total Bilirubin 0.4 AST 27 ALT 47 Alkaline Phosphatase 89 Total Protein 7.4 Albumin 4.5 Globulin 2.9 Albumin/Globulin Ratio 1.6 CSF Appearance Clear CSF Color Colorless CSF WBC 0 CSF RBC 0 CSF Cell Count Tube # Tube # 4 CSF Mononuclear WBCs Not Performed. CSF Polynuclear WBCs Not Performed. CSF Glucose 61 CSF Total Protein 34 H Quality Measures Quality Measures none Assessment & Plan Assessment Current Active Medications: Generic Name Dose Route Start Last Admin Trade Name Freq PRN Reason Stop Dose Admin Acetaminophen 650 mg 03/11/25 16:10 03/13/25 08:02 Acetaminophen 325 Mg Tablet PO 04/10/25 16:09 650 mg Q6H PRN Administration Fever >100.4 Acetaminophen 650 mg 03/11/25 16:10 03/12/25 03:30 Acetaminophen 325 Mg Tablet PO 04/10/25 16:09 650 mg Q6H PRN Administration PAIN SCALE 1-3 (mild Hydrocodone Bitart/Acetaminophen 1 tab 03/11/25 16:15 03/14/25 21:01 Hydrocodone/Apap 5/325 Tablet PO 03/16/25 16:14 1 tab Q4HR PRN Administration PAIN SCALE 4-10(Mod-Sev Amlodipine Besylate 5 mg 03/12/25 09:00 03/14/25 09:06 Amlodipine Besylate 5 Mg Tablet PO 04/11/25 08:59 5 mg QDAY GINA Administration Diazepam 5 mg 03/11/25 16:18 Diazepam Inj 5 Mg/Ml Vial 2 Ml IVP 03/16/25 16:17 Q15MIN PRN seizure Doxycycline Hyclate 100 mg 03/14/25 09:00 03/14/25 21:01 Doxycycline 100 Mg Tablet PO 03/21/25 08:59 100 mg BID GINA Administration Enoxaparin Sodium 40 mg 03/12/25 09:00 03/14/25 10:00 Enoxaparin Sod Inj 40 Mg/0.4 Ml Syringe SC 03/26/25 08:59 Not Given QDAY GINA Lactated Ringer's 1,000 mls @ 75 mls/hr 03/11/25 16:15 03/15/25 00:08 Lactated Ringers IV 04/10/25 16:14 75 mls/hr .[id number] GINA Administration Lactulose 20 gm 03/11/25 21:00 03/14/25 21:01 Lactulose Syrup 20 Gm/30 Ml Udc PO 04/10/25 20:59 20 gm HS GINA Administration Protocol Levetiracetam 1,000 mg 03/13/25 21:00 03/14/25 21:01 Levetiracetam 250 Mg Tablet PO 04/12/25 20:59 1,000 mg BID GINA Administration Ondansetron HCl 4 mg 03/11/25 16:10 Ondansetron Inj 2 Mg/Ml Inj 2 Ml IVP 04/10/25 16:09 Q6H PRN NAUSEA OR VOMITING Protocol Plan 39-year-old male with past medical history of new onset seizures, syphillis, and HTN, [facility] presented on 03/11/2025 after having had seizure-like activity of about 20 minutes and unresponsiveness for about half an hour. Neurology was consulted for further management of seizures. ? #Seizure-like activity Reported recurrent 10-20 min long whole-body shaking while lying on the floor unconscious, followed by episodes of unresponsiveness. Patient denies tongue biting, admits to acidic odor in his nose. Officer who is present at bedside states on some episodes there was incontinence. Given his history of syphilis and unknown titers and unknown treatment course would benefit from LP study, however patient declined at this time. EKG showed sinus rhythm CT head negative UA negative (RBC 13/hpf). UDS negative. MRI Brain w+wo con was negative for hemorrhage, mass effect, or infarct. TSH 3.43 <5, lipid panel WNL -EEG showed localized spike and wave activity noted in both temporal areas suggestive of seizures Plan: -4 week follow up EEG is recommended to confirm the epileptiform findings -Continue patient's home Keppra 1000 mg BID -Follow up CSF VDRL ? Rest of conditions to continue current management per primary team: #History of hypertension #History of syphilis Patient was discussed with the Neurology attending, Dr. Ma. Thank you for allowing us to participate in the care of this patient. Elise Polk, PGY-3 Attending Provider Attestation/Addendum I personally have seen and examined the patient at the bedside and agreed with the resident's findings, assessment and plan of care. Will continue with the Keppra 1000 mg twice a day by following seizure precautions. Follow-up with the CSF analysis for VDRL, treponemal confirmatory test for syphilis pending.
[2025-03-14] MEDS: HYDROcodone/APAP 5/325 TABLET 1 TAB PO (21:01)
[2025-03-14] MEDS: LACTULOSE SYRUP 20 GM/30 ML UDC PO (21:01)
[2025-03-15] VITALS (7 sets, daily range): BP systolic 132–149; BP diastolic 73–96; PULSE 68–109; RESP 12–18; TEMP 36.2–36.8; O2SAT 94–96; BMI 26.9
[2025-03-15] MEDS: RINGERS LACTATED 1000 ML 1,000 ML 75 ML IV (00:08)
[2025-03-15 05:41] LABS: Basophils # (Auto) 0.1 Thou/mm3 (0.0-0.2); Basophils % (Auto) 1 % (0-2.5); Eosinophils # (Auto) 0.1 Thou/mm3 (0.0-0.5); Eosinophils % (Auto) 2 % (0-10); Hematocrit 40.6 % (41.0-53.0); Hemoglobin 13.2 g/dL (13.5-16.0); Immature Granulocytes Auto 0.02 Thou/mm3 (0.00-0.00); Lymphocytes # (Auto) 2.5 Thou/mm3 (1.0-4.8); Lymphocytes % (Auto) 33 % (10-50); Mean Corpuscular HGB Conc 32.5 g/dl (31.0-37.0); Mean Corpuscular Hemoglobin 29.1 pg (25.0-35.0); Mean Corpuscular Volume 89 fL (80-100); Monocytes # (Auto) 0.8 Thou/mm3 (0.0-0.8); Monocytes % (Auto) 10 % (0-12); Neutrophils # (Auto) 4.1 Thou/mm3 (1.8-7.7); Neutrophils % (Auto) 54 % (37-80); Nucleated Red Blood Cell # 0.00 Thou/mm3 (0.00-0.00); Nucleated Red Blood Cell % 0 /100 WBC (0); Platelet Count 365 Thou/mm3 (140-440); RDW Standard Deviation 43.6 fL (35.1-43.9); Red Blood Count 4.54 Miln/mm3 (4.50-5.90); White Blood Count 7.6 Thou/mm3 (3.8-10.6)
[2025-03-15 06:17] LABS: Alanine Aminotransferase 49 U/L (10-49); Albumin, Serum 4.0 gm/dL (3.5-5.0); Albumin/Globulin Ratio 1.3 (1.2-2.2); Alkaline Phosphatase 93 U/L (46-116); Anion Gap 8 (7-16); Aspartate Amino Transferase 29 U/L (0-34); BUN/Creatinine Ratio 18 Ratio (12-20); Bilirubin,Total 0.3 mg/dL (0.3-1.2); Blood Urea Nitrogen 14 mg/dL (9-23); Calcium 9.3 mg/dL (8.3-10.6); Calcium (Corrected) 9.3 mg/dL (8.5-10.1); Carbon Dioxide 29.5 mMol/L (20.0-31.0); Chloride 104 mMol/L (98-107); Creatinine (Component) 0.8 mg/dL (0.6-1.3); Estimated Creatinine Clearance 136.1 mL/min (>60); Globulin 3.1 gm/dL (2.3-3.5); Glucose 100 mg/dL (74-106); Magnesium 1.9 mg/dL (1.6-2.6); Osmolality,Calculated 281 (275-295); Potassium 4.3 mMol/L (3.4-5.1); Sodium 141 mMol/L (136-145); Total Protein 7.1 gm/dL (5.7-8.2); eGFR > 60 See Note
[2025-03-15] MEDS: HYDROcodone/APAP 5/325 TABLET 1 TAB PO ×2 (08:34→20:47)
[2025-03-15] MEDS: ENOXAPARIN SOD INJ 40 MG/0.4 ML SYRINGE SC (08:34)
[2025-03-15] MEDS: DOXYCYCLINE 100 MG TABLET PO ×2 (08:35→20:47)
[2025-03-15] MEDS: POLYETHYLENE GLYCOL 17 GM PACKET PO (11:11)
--- NOTE | 2025-03-15 13:59 | ESPR_ITS ---
Documentation for date of: 03/15/25 Subjective Subjective Interval history: Patient was seen and examined at bedside. No acute events took place overnight. Patient admits to occipital CADET, chest pain worse with palpation, and abdominal bloating (has BM), which improved after bowel movement. Patient states that he had been diagnosed with syphilis about 2 months ago after concerns verena by his girlfriend.? Unsure how long did he have it before. He denies fevers, tremors, confusion, unresponsiveness overnight. Patient stayed in NSR overnight. Exam Vital Signs Temp Pulse Resp BP Pulse Ox O2 Del Method O2 Flow Rate 97.2 F 89 17 135/90 H 94 L Room Air 2 03/15/25 08:00 03/15/25 08:34 03/15/25 08:00 03/15/25 08:34 03/15/25 08:00 03/15/25 08:00 03/12/25 16:00 Narrative Exam General: Alert and oriented x3, No apparent distress. Skin: Intact, Warm, no rashes. HEENT: Normocephalic, Atraumatic. Normal neck range of motion, Supple. Trachea midline. Respiratory: Lungs are clear to auscultation. Breath sounds are equal bilaterally with good, symmetric chest expansion. Cardiovascular: RRR, normal S1, S2, No murmurs. Distal pulses 2+ Abdomen: Abdomen distended without erythema, or lesions. Normotensive bowel sounds x4. Percussion tympanic. Palpation soft, nontender in all four quadrants. No organomagely. Absent rigidity, guarding, or rebound. Musculoskeletal/Extremities: No erythema, swelling, tenderness of any joints. No edema of BLE. DP pulses +2/3 b/l. Full active ROM of all four extremities. Neurologic: NEURO: Oriented x3, cranial nerves II to XII grossly intact. Muscle strength 5/5 on UE and LE b/l, Moves extremities x4. Sensation intact to gross touch along C6-T1 and L2-S1 dermatomes. No focal neurologic deficits noted Psych: Thoughts linear and responses appropriate. Objective Labs 03/15/25 05:09 03/15/25 05:09 Labs: Laboratory Results - last 24 hr 03/12/25 03/14/25 03/15/25 05:22 13:10 05:09 WBC 7.6 RBC 4.54 Hgb 13.2 L Hct 40.6 L MCV 89 MCH 29.1 MCHC 32.5 RDW Std Deviation 43.6 Plt Count 365 D Neut % (Auto) 54 Lymph % (Auto) 33 [place] % (Auto) 10 Eos % (Auto) 2 Baso % (Auto) 1 Neut # (Auto) 4.1 Lymph # (Auto) 2.5 [place] # (Auto) 0.8 Eos # (Auto) 0.1 Baso # (Auto) 0.1 Immature Gran # (Auto) 0.02 H Absolute Nucleated RBC 0.00 Immature Gran % 0 Nucleated RBC % 0 Sodium 141 Potassium 4.3 Chloride 104 Carbon Dioxide 29.5 Anion Gap 8 BUN 14 Creatinine 0.8 Estim Creat Clear Calc 136.1 eGFR > 60 BUN/Creatinine Ratio 18 Glucose 100 Calculated Osmolality 281 Calcium 9.3 Corrected Calcium 9.3 Magnesium 1.9 Total Bilirubin 0.3 AST 29 ALT 49 Alkaline Phosphatase 93 Total Protein 7.1 Albumin 4.0 D Globulin 3.1 Albumin/Globulin Ratio 1.3 CSF Appearance Clear CSF Color Colorless CSF WBC 0 CSF RBC 0 CSF Cell Count Tube # Tube # 4 CSF Mononuclear WBCs Not Performed. CSF Polynuclear WBCs Not Performed. CSF Glucose 61 CSF Total Protein 34 H T.pallidum Ab (MHA) See Sep Rpt Quality Measures Quality Measures none Assessment & Plan Assessment Current Active Medications: Generic Name Dose Route Start Last Admin Trade Name Freq PRN Reason Stop Dose Admin Acetaminophen 650 mg 03/11/25 16:10 03/13/25 08:02 Acetaminophen 325 Mg Tablet PO 04/10/25 16:09 650 mg Q6H PRN Administration Fever >100.4 Acetaminophen 650 mg 03/11/25 16:10 03/12/25 03:30 Acetaminophen 325 Mg Tablet PO 04/10/25 16:09 650 mg Q6H PRN Administration PAIN SCALE 1-3 (mild Hydrocodone Bitart/Acetaminophen 1 tab 03/11/25 16:15 03/15/25 08:34 Hydrocodone/Apap 5/325 Tablet PO 03/16/25 16:14 1 tab Q4HR PRN Administration PAIN SCALE 4-10(Mod-Sev Amlodipine Besylate 5 mg 03/12/25 09:00 03/15/25 08:34 Amlodipine Besylate 5 Mg Tablet PO 04/11/25 08:59 5 mg QDAY GINA Administration Diazepam 5 mg 03/11/25 16:18 Diazepam Inj 5 Mg/Ml Vial 2 Ml IVP 03/16/25 16:17 Q15MIN PRN seizure Doxycycline Hyclate 100 mg 03/14/25 09:00 03/15/25 08:35 Doxycycline 100 Mg Tablet PO 03/21/25 08:59 100 mg BID GINA Administration Enoxaparin Sodium 40 mg 03/12/25 09:00 03/15/25 08:34 Enoxaparin Sod Inj 40 Mg/0.4 Ml Syringe SC 03/26/25 08:59 40 mg QDAY GINA Administration Lactated Ringer's 1,000 mls @ 75 mls/hr 03/11/25 16:15 03/15/25 00:08 Lactated Ringers IV 04/10/25 16:14 75 mls/hr .[id number] GINA Administration Lactulose 20 gm 03/11/25 21:00 03/14/25 21:01 Lactulose Syrup 20 Gm/30 Ml Udc PO 04/10/25 20:59 20 gm HS GINA Administration Protocol Levetiracetam 1,000 mg 03/13/25 21:00 03/15/25 08:34 Levetiracetam 250 Mg Tablet PO 04/12/25 20:59 1,000 mg BID GINA Administration Ondansetron HCl 4 mg 03/11/25 16:10 Ondansetron Inj 2 Mg/Ml Inj 2 Ml IVP 04/10/25 16:09 Q6H PRN NAUSEA OR VOMITING Protocol Plan 39-year-old male with MHx of new onset seizures, syphillis, and HTN, [facility] presented after having had seizure-like activity of about 20 minutes and unresponsiveness for about half an hour. ? #Seizure-like activity Recurrent 10-20min long whole-body shaking while lying on the floor unconscious, followed by episodes of unresponsiveness. Patient denies tongue biting, admits to acidic odor in his nose. Possibly secondary to neurosyphilis however exact etiology unknown EKG showed sinus rhythm CT head negative UA negative (RBC 13/hpf). UDS negative. ? MRI Brain w+wo con was negative for hemorrhage, mass effect, or infarct. + TSH 3.43 <5, lipid panel WNL ? EEG was abnormal with localized spike and wave activity in both temporal areas suggestive of seizures.? Repeat in 4 weeks.? ? CSF analysis showed WBC 0, glc 61, and T protein 34; pending VDRL, Herpes 1, 2, and [place] Ab. Plan: -Neurology, Dr Ma, consulted; appreciate recommendations -4 week follow up EEG is recommended to confirm the epileptiform findings -Keppra 1000 mg BID -pending CSF VDRL, Herpes 1, 2, and [place] Ab. -Diazepam IVP 5mg Q15min for max of 3 doses -Seizure precautions -Multimodal pain control with APAP 650mg for mild and [place] 5/325 for moderate to severe pain -Daily CBC, CMP, Mg, Phos ? #Syphilis, positive RPR and MHA-TP Ab titers #High Risk Sexual Activity Patient reports hx of multiple sexual partners and no protection use. He states that he was recently diagnosed with syphilis and started on doxycycline. Reports to have received treatment already. +Syphilis serology (+) RPR (+) Negative HIV Ag/Ab 1&2 test and Hep C Ab + MHA-TP Ab titers (+) Plan: -Doxycycline PO 100mg BID for 14 days (03/14 -) -ID consulted for concerns of neurosyphilis; appreciate recommendations -Pending Dr Norton's recommendations for duration of antibiotic treatment ? #HTN BP at the time of presentation was 160/113 -Started amlodipine PO 5mg Qday #Constipation Patient reports abdominal bloating, discomfort, and small, hard BM -MiraLax 17g ? #Substance use Patient reports history of methamphetamine use, marijuana use, and having been treated with Narcan and Suboxone for opioid withdrawal. #Contrast Allergy Patient developed facial erythema and swelling after administration of contrast for MRI brain. He was confused, A&O x1, and improved after being given epinephrine 1 mg. He was also given hydrocortisone IV 100mg and Benedryl 25mg. Patient was mildy tremulous subsequently, but became immediately responsive, A&O x3, and atopy improved. ? Health Maintenance: Disposition: Telemetry Diet: Routine PPx DVT: Lovenox SC 40mg Qday Code Status: Full ? This case was discussed with my attending physician, Dr. Robertson, and senior resident, Dr Jarquin. Even though this this note was carefully revised there may still be minor errors in teacher of the sight impaired due to voice recognition software. Roro Peña, DO PGY I Senior Resident Attestation: The patient reports doing well this morning. He underwent lumbar puncture yesterday, and CSF analysis revealed mildly elevated protein, but normal glucose, and no white count. CSF VDRL is pending. We will continue the patient on Keppra thousand mg twice daily. Infectious disease Dr Norton recommendations pending. I discussed with and supervised the email marketing intern physician involved in the care of this patient. I personally saw and examined the patient and discussed the assessment and plan with the entire medicine team, including my attending. I agree with the assessment and plan as documented above. Jadiel Jarquin MD PGY3 Internal Medicine Attending Provider Attestation/Addendum I have seen and examined the patient. I was physically present for the [place] portions of the services provided including history, physical exam, diagnosis, treatment plans and orders. I agree with assessment and plan of care as documented by residents. Even though this this note was carefully revised there may still be minor errors in teacher of the sight impaired due to voice recognition software. Stephenie Robertson MD
--- NOTE | 2025-03-15 14:42 | ESPR_ITS ---
Documentation for date of: 03/15/25 Subjective Subjective Interval history: Patient awake and doing well, reports headache is improved. Syphilis titer from serum returned at 1:8. CSF is still pending, howeverr patient can be discharged prior to result if ok with ID. Awaiting ID recommendations for treatment choice. Patient reports some soreness in the left antecubital from the IV site, may be some thrombophlebitis. Exam Vital Signs Temp Pulse Resp BP Pulse Ox O2 Del Method O2 Flow Rate 97.9 F 84 12 135/90 H 94 L Room Air 2 03/15/25 12:00 03/15/25 12:00 03/15/25 12:00 03/15/25 12:00 03/15/25 12:00 03/15/25 12:03/12/25 16:00 Narrative Exam Physical Exam General: Awake and in no acute distress. Conversational and non-toxic appearing. HEENT: Normocephalic, atraumatic, mucous membranes moist. Heart: Regular rate and rhythm, normal S1 and S2, no murmurs. Lungs: Clear to auscultation with no wheezing or crackles. Abdomen: Soft, nondistended, nontender, positive bowel sounds. ?No guarding or rebound tenderness. Neurologic: Alert and oriented x3, no gross neurological deficit, and patient able to move all 4 extremities. Extremities: No edema. Mild erthythema and hard skin left antecubital from the IV site. Skin: No rash or ecchymoses. Objective Labs 03/16/25 05:25 03/16/25 05:25 Labs: Laboratory Results - last 24 hr 03/12/25 03/15/25 05:22 05:09 WBC 7.6 RBC 4.54 Hgb 13.2 L Hct 40.6 L MCV 89 MCH 29.1 MCHC 32.5 RDW Std Deviation 43.6 Plt Count 365 D Neut % (Auto) 54 Lymph % (Auto) 33 [place] % (Auto) 10 Eos % (Auto) 2 Baso % (Auto) 1 Neut # (Auto) 4.1 Lymph # (Auto) 2.5 [place] # (Auto) 0.8 Eos # (Auto) 0.1 Baso # (Auto) 0.1 Immature Gran # (Auto) 0.02 H Absolute Nucleated RBC 0.00 Immature Gran % 0 Nucleated RBC % 0 Sodium 141 Potassium 4.3 Chloride 104 Carbon Dioxide 29.5 Anion Gap 8 BUN 14 Creatinine 0.8 Estim Creat Clear Calc 136.1 eGFR > 60 BUN/Creatinine Ratio 18 Glucose 100 Calculated Osmolality 281 Calcium 9.3 Corrected Calcium 9.3 Magnesium 1.9 Total Bilirubin 0.3 AST 29 ALT 49 Alkaline Phosphatase 93 Total Protein 7.1 Albumin 4.0 D Globulin 3.1 Albumin/Globulin Ratio 1.3 T.pallidum Ab ([facility]) See Sep Rpt Quality Measures Quality Measures none Assessment & Plan Assessment Current Active Medications: Generic Name Dose Route Start Last Admin Trade Name Freq PRN Reason Stop Dose Admin Acetaminophen 650 mg 03/11/25 16:10 03/13/25 08:02 Acetaminophen 325 Mg Tablet PO 04/10/25 16:09 650 mg Q6H PRN Administration Fever >100.4 Acetaminophen 650 mg 03/11/25 16:10 03/12/25 03:30 Acetaminophen 325 Mg Tablet PO 04/10/25 16:09 650 mg Q6H PRN Administration PAIN SCALE 1-3 (mild Hydrocodone Bitart/Acetaminophen 1 tab 03/11/25 16:15 03/15/25 08:34 Hydrocodone/Apap 5/325 Tablet PO 03/16/25 16:14 1 tab Q4HR PRN Administration PAIN SCALE 4-10(Mod-Sev Amlodipine Besylate 5 mg 03/12/25 09:00 03/15/25 08:34 Amlodipine Besylate 5 Mg Tablet PO 04/11/25 08:59 5 mg QDAY GINA Administration Diazepam 5 mg 03/11/25 16:18 Diazepam Inj 5 Mg/Ml Vial 2 Ml IVP 03/16/25 16:17 Q15MIN PRN seizure Doxycycline Hyclate 100 mg 03/14/25 09:00 03/15/25 08:35 Doxycycline 100 Mg Tablet PO 03/21/25 08:59 100 mg BID GINA Administration Enoxaparin Sodium 40 mg 03/12/25 09:00 03/15/25 08:34 Enoxaparin Sod Inj 40 Mg/0.4 Ml Syringe SC 03/26/25 08:59 40 mg QDAY GINA Administration Lactated Ringer's 1,000 mls @ 75 mls/hr 03/11/25 16:15 03/15/25 00:08 Lactated Ringers IV 04/10/25 16:14 75 mls/hr .[id number] GINA Administration Lactulose 20 gm 03/11/25 21:00 03/14/25 21:01 Lactulose Syrup 20 Gm/30 Ml Udc PO 04/10/25 20:59 20 gm HS GINA Administration Protocol Levetiracetam 1,000 mg 03/13/25 21:00 03/15/25 08:34 Levetiracetam 250 Mg Tablet PO 04/12/25 20:59 1,000 mg BID GINA Administration Ondansetron HCl 4 mg 03/11/25 16:10 Ondansetron Inj 2 Mg/Ml Inj 2 Ml IVP 04/10/25 16:09 Q6H PRN NAUSEA OR VOMITING Protocol Plan 39-year-old male with past medical history of new onset seizures, syphillis, and HTN, [facility] presented on 03/11/2025 after having had seizure-like activity of about 20 minutes and unresponsiveness for about half an hour. Neurology was consulted for further management of seizures. ? #Seizure-like activity Reported recurrent 10-20 min long whole-body shaking while lying on the floor unconscious, followed by episodes of unresponsiveness. Patient denies tongue biting, admits to acidic odor in his nose. Officer who is present at bedside states on some episodes there was incontinence. Given his history of syphilis and unknown titers and unknown treatment course would benefit from LP study, however patient declined at this time. EKG showed sinus rhythm CT head negative UA negative (RBC 13/hpf). UDS negative. MRI Brain w+wo con was negative for hemorrhage, mass effect, or infarct. TSH 3.43 <5, lipid panel WNL -EEG showed localized spike and wave activity noted in both temporal areas suggestive of seizures Plan: -4 week follow up EEG is recommended to confirm the epileptiform findings -Continue patient's home Keppra 1000 mg BID -Follow up CSF VDRL ? Rest of conditions to continue current management per primary team: #History of hypertension #History of syphilis Patient was discussed with the Neurology attending, Dr. Ma. Thank you for allowing us to participate in the care of this patient. Elise Polk, PGY-3 Attending Provider Attestation/Addendum I personally have seen and examined the patient at the bedside and agreed with the resident's findings, assessment and plan of care. Will continue with the Keppra 1000 mg twice a day by following seizure precautions. Follow-up with the CSF analysis for VDRL, treponemal confirmatory test for syphilis pending.
[2025-03-15] MEDS: LACTULOSE SYRUP 20 GM/30 ML UDC PO (20:47)
[2025-03-16] VITALS: BP 117/79; PULSE 79; PULSE 93; RESP 12; TEMP 36.8; O2SAT 94
[2025-03-16] MEDS: HYDROcodone/APAP 5/325 TABLET 1 TAB PO ×2 (03:09→12:39)
[2025-03-16 04:00] VITALS: BP 109/73; PULSE 72; PULSE 88; RESP 12; TEMP 36.3; O2SAT 95
[2025-03-16 05:30] VITALS: BMI 26.1
[2025-03-16 05:59] LABS: Basophils # (Auto) 0.1 Thou/mm3 (0.0-0.2); Basophils % (Auto) 1 % (0-2.5); Eosinophils # (Auto) 0.2 Thou/mm3 (0.0-0.5); Eosinophils % (Auto) 3 % (0-10); Hematocrit 41.2 % (41.0-53.0); Hemoglobin 13.9 g/dL (13.5-16.0); Immature Granulocytes Auto 0.02 Thou/mm3 (0.00-0.00); Lymphocytes # (Auto) 2.6 Thou/mm3 (1.0-4.8); Lymphocytes % (Auto) 35 % (10-50); Mean Corpuscular HGB Conc 33.7 g/dl (31.0-37.0); Mean Corpuscular Hemoglobin 29.9 pg (25.0-35.0); Mean Corpuscular Volume 89 fL (80-100); Monocytes # (Auto) 0.9 Thou/mm3 (0.0-0.8); Monocytes % (Auto) 12 % (0-12); Neutrophils # (Auto) 3.6 Thou/mm3 (1.8-7.7); Neutrophils % (Auto) 49 % (37-80); Nucleated Red Blood Cell # 0.00 Thou/mm3 (0.00-0.00); Nucleated Red Blood Cell % 0 /100 WBC (0); Platelet Count 355 Thou/mm3 (140-440); RDW Standard Deviation 42.8 fL (35.1-43.9); Red Blood Count 4.65 Miln/mm3 (4.50-5.90); White Blood Count 7.3 Thou/mm3 (3.8-10.6)
[2025-03-16 06:21] LABS: Alanine Aminotransferase 75 U/L (10-49); Albumin, Serum 4.2 gm/dL (3.5-5.0); Albumin/Globulin Ratio 1.4 (1.2-2.2); Alkaline Phosphatase 98 U/L (46-116); Anion Gap 8 (7-16); Aspartate Amino Transferase 36 U/L (0-34); BUN/Creatinine Ratio 14 Ratio (12-20); Bilirubin,Total 0.3 mg/dL (0.3-1.2); Blood Urea Nitrogen 13 mg/dL (9-23); Calcium 9.5 mg/dL (8.3-10.6); Calcium (Corrected) 9.5 mg/dL (8.5-10.1); Carbon Dioxide 30.3 mMol/L (20.0-31.0); Chloride 103 mMol/L (98-107); Creatinine (Component) 0.9 mg/dL (0.6-1.3); Estimated Creatinine Clearance 121.0 mL/min (>60); Globulin 3.1 gm/dL (2.3-3.5); Glucose 105 mg/dL (74-106); Magnesium 1.9 mg/dL (1.6-2.6); Osmolality,Calculated 281 (275-295); Potassium 4.1 mMol/L (3.4-5.1); Sodium 141 mMol/L (136-145); Total Protein 7.3 gm/dL (5.7-8.2); eGFR > 60 See Note
[2025-03-16 08:00] VITALS: BP 133/99; PULSE 83; PULSE 93; RESP 19; TEMP 36.2; O2SAT 97
[2025-03-16 08:22] VITALS: BP 133/99; PULSE 83
[2025-03-16] MEDS: DOXYCYCLINE 100 MG TABLET PO (08:22)
[2025-03-16] MEDS: ENOXAPARIN SOD INJ 40 MG/0.4 ML SYRINGE SC (08:23)
--- NOTE | 2025-03-16 08:47 | PC.SS ---
Follow up note: Pending Dr. Hernandez's recommendations. Pt will return back to snf.
--- NOTE | 2025-03-16 09:23 | PD.IDPROG ---
Subjective Subjective Interval history: no more sz noted. called [facility] / [facility] and rpr 1:8 so value of csf (csf looks neg so far) is low. previously treated with doxy. is on doxy again. Exam Vital Signs Temp Pulse Resp BP Pulse Ox O2 Del Method O2 Flow Rate 97.2 F 83 19 133/99 H 97 Room Air 2 03/16/25 08:00 03/16/25 08:22 03/16/25 08:00 03/16/25 08:22 03/16/25 08:00 03/16/25 08:00 03/12/25 16:00 Narrative Exam limited eval today. reviewed data mostly non focal exam. c/o escalante and back pain post LP. Objective - Internal Medicine Labs 03/16/25 05:25 03/16/25 05:25 Labs: Laboratory Results - last 24 hr 03/16/25 05:25 WBC 7.3 RBC 4.65 Hgb 13.9 Hct 41.2 MCV 89 MCH 29.9 MCHC 33.7 RDW Std Deviation 42.8 Plt Count 355 Neut % (Auto) 49 Lymph % (Auto) 35 [place] % (Auto) 12 Eos % (Auto) 3 Baso % (Auto) 1 Neut # (Auto) 3.6 Lymph # (Auto) 2.6 [place] # (Auto) 0.9 H Eos # (Auto) 0.2 Baso # (Auto) 0.1 Immature Gran # (Auto) 0.02 H Absolute Nucleated RBC 0.00 Immature Gran % 0 Nucleated RBC % 0 Sodium 141 Potassium 4.1 Chloride 103 Carbon Dioxide 30.3 Anion Gap 8 BUN 13 Creatinine 0.9 Estim Creat Clear Calc 121.0 eGFR > 60 BUN/Creatinine Ratio 14 Glucose 105 Calculated Osmolality 281 Calcium 9.5 Corrected Calcium 9.5 Magnesium 1.9 Total Bilirubin 0.3 AST 36 H ALT 75 H Alkaline Phosphatase 98 Total Protein 7.3 Albumin 4.2 Globulin 3.1 Albumin/Globulin Ratio 1.4 Assessment & Plan A&P Narrative pos rpr 1:8, he went to the [facility] so prior titer may be there treated at the [facility] po doxy ok for now as pen hard to come by lp neghiv neg no hiv. no hep c. should be screened later for both as a precaution. if f/u ok. you can send him back to prior residence, or you can wait for the csf vdrl he may already have been treated with po doxy btw but if rx can not be verified, ok to treat with po doxy for 30d. Time Spent With Patient Time: Total time spent is greater than 50% in coordination of care (as documented) at patient's floor/unit and/or counseling patient:
[2025-03-16] MEDS: MAGNESIUM OXIDE 400 MG TABLET PO (09:52)
[2025-03-16] MEDS: IBUPROFEN TAB 400 MG TABLET PO (10:44)
--- NOTE | 2025-03-16 11:07 | PC.SS ---
Addendum entered by Hermila Fink 03/16/25 11:55: SS provided bedside nurse with phone number For [place] and [employer]: [place] Patient Relations Representative ? [phone] (medical)/ [phone] (main line) for report Original Note: SS met with officer, Yifan Morse and pt at bedside. Pt is requesting his medical records. SS has spoken to Graciela from Medical Records who explained pt will require to present himself with proper ID for release of his information. Graciela from Medical Records also explained if pt is unable to present himself and send a family member instead the family member requires to have patient's legal ID or some kind of patient's legal identification. Per Graciela, without patient's proper ID his medical records will not be released. Pt is also aware the [facility] portal does not show all his medical records, Per Graciela. Pt is upset and is requesting to file a grievance. Beside nurse, Natalie is aware. Pt is aware upon dc he will be provided with his d/c paper work.
[2025-03-16 12:00] VITALS: BP 149/87; PULSE 88; PULSE 89; RESP 18; TEMP 36.4; O2SAT 97
--- NOTE | 2025-03-16 12:00 | PC.NURSE ---
Patient is upset regarding his discharge orders. Patient stated that doctors are not addressing his medical needs. Dr. Holloway was contacted and made aware of patient concerns. Per Dr. Holloway patient needs outpatient follow up. Patient also requested to grievance. Patient safety was contacted to follow up with patient.
--- NOTE | 2025-03-16 13:55 | PC.PT ---
Per [employer]PER[employer], patient is xI to bathroom with no AD multiple times. Patient is xI at this time. Will cancel PT eval as patient is xI and able to ambulate to the bathroom without assistance. SW made aware.
--- NOTE | 2025-03-16 14:19 | PC.SS ---
SS received call from IGNACIO Rosales who explained he was informed by DONTE pt has been ambulating to the restroom independently without assistance during his hospital stay and therefore does not require a walker.
--- NOTE | 2025-03-16 14:47 | ESDS_ITS ---
<Statement entered by David Holloway MD - 03/16/25 23:13> I saw and examined patient personally and supervised PGY 1 resident, Dr. Santos with formulating a discharge plan. I agree with the documentation as listed below. Plan of care discussed with Attending Dr. Ailyn Holloway MD PGY 2 Disclaimer: This note was dictated by speech recognition. Minor errors in icing mixer may be present due to voice recognition software. Planned Discharge Date 03/16/25 DS: Providers Provider Date of admission: 03/11/25 16:10 Primary care physician: Physician No Primary/Family Admitting Provider: Cooper Laboy MD Attending Provider on Admission: Jarad Morris DO Consults: 03/11/25 15:18 Consult to Neurology / Tele-Neurology Stat Comment: Consulting Provider: Torrey Ma 03/11/25 22:09 Health Equity Referral - Nutrition Routine Comment: Positive screening for nutrition needs. Health Equity Referral - Safety Routine Comment: Positive screening for safety needs. Health Equity Referral - Transportation Routine Comment: Positive screening for transportation needs. Health Equity Referral - Utilities Routine Comment: Positive screening for utility assistance needs. 03/12/25 05:00 Consult to Infectious Diseases Routine Comment: Possible neurosyphilis Consulting Provider: Ruben Norton Attending Provider on DC: Stephenie Robertson MD Discharging Provider: Stephenie Robertson MD DS: Diagnosis Problem List Completed Was Problem List Reviewed/Reconciled?: Yes Hospital Course Hospital Course Hospital course: Hospital Course: Patient is a 39-year-old male with recent history of new onset seizure, and HTN, [facility] who presented on 03/11/25 after having had seizure like activity of about 20 minutes. Of note, patient was discharged from ED earlier in the day for a similar presentation of 17 minutes seizure-like activity. The first episode that the patient is aware of happened on March 03 for which he was taken to the ED and sent out on anti seizing meds. Just prior to his seizures, he felt his chest hurting and fingers going numb. Patient had been told about 1 year ago by his partner that he had been shaking in bed and was unresponsive later. CT scan of the brain is unremarkable. Workup for new onset seizure was recommended by neurology service. Patient also reported history of recent syphilis diagnosis and being started on doxycycline. CT scan of the brain is unremarkable. Patient admitted for further workup of new-onset seizures on 03/11/25. On 03/12/25, patient tested positive for syphilis. In addition, after being taken for MRI brain with contrast, patient was seen slumping over in wheelchair and had erythema and swelling of the face, likely an allergic reaction to the contrast he had just received. He was unresponsive to questions addressed to him, however withdrew from noxious stimuli. Patient received 1 mg epinephrine, upon the administration of which he became responsive, A&O x3. Patient's anaphylactic reaction to MRI contrast was placed into his allergy record in his chart. MRI brain was normal. On 03/13/25, EEG taken that day showed bitemporal epileptiform discharges in the bilateral temporal areas suggestive of seizures. Neurology recommended repeating the EEG in 4 weeks for confirmation, and restarted Keppra 1000mg BID. On 03/14/25, infectious disease recommended doxycycline to complete for 14 days. LP for test for potential neurosyphilis also taken, with CSF VDRL testing occurring. On 03/15/25, patient reported occipital headache, chest pain worse with palpation, and abdominal bloating (the latter improved with BM). On 03/16/25, ID stated RPR value from [facility] was 1:8 (which is low), and recommended 30 days of doxycycline if previous treatment could not be verified. Patient at that point was considered stable for discharge, with CSF results being followed up on outpatient. Discharge Instructions: - Take Doxycycline for 27 more days to complete a 30 day course total of antibiotics for syphillis. Your titers were low at 1:8, follow with [facility] for your previous results. - You can lie flat in a dark room for your headaches. - Continue Keppra 1g twice a day to prevent further seizures. - Continue home medications as below. - You had an allergic reaction to gadolinium contrast and was given epinephrine to treat your reaction. - Follow up with Neurology for repeat EEG in 4 weeks outpatient as per Dr. Ma's recommendations. Do not drive until cleared by Neurology. - Follow up with your primary care doctor for results of your spinal fluid studies VDRL - Follow up with your primary care physician within 1 week of discharge. If you do not have a primary care physician, please follow up with the [facility] Residents clinic ([phone]) ? If you experience any new, worsening or persistent symptoms either call your primary doctor, or dial 911 or present to the emergency department. Problem List: #Seizure-like activity #Syphilis, positive RPR and MHA-TP Ab titers #High Risk Sexual Activity #HTN #Constipation #Substance use #Contrast Allergy Status at Discharge Functional status at discharge: independent ambulation Overall status at discharge: patient is progressing back to baseline Time Spent with Patient Time attestation: Total time spent providing and/or coordinating discharge services: 35 minutes Time spent: Greater than 30 minutes Exam Vital Signs Temp Pulse Resp BP Pulse Ox O2 Del Method O2 Flow Rate 97.6 F 89 18 149/87 H 97 Nasal Cannula 2 03/16/25 12:03/16/25 12:03/16/25 12:03/16/25 12:03/16/25 12:03/16/25 12:00 03/12/25 16:00 Narrative Exam Physical Exam General: Awake and in no acute distress. Conversational and non-toxic appearing. HEENT: Normocephalic, atraumatic, mucous membranes moist. Heart: Regular rate and rhythm, normal S1 and S2, no murmurs. Lungs: Clear to auscultation with no wheezing or crackles. Abdomen: Soft, nondistended, nontender, positive bowel sounds. ?No guarding or rebound tenderness. Neurologic: Alert and oriented x3, no gross neurological deficit, and patient able to move all 4 extremities. Extremities: No edema. Mild erthythema and hard skin left antecubital from the IV site. Skin: No rash or ecchymoses. Discharge Plan Plan Patient Disposition: Penitentiary/Court/Law Patient condition on transfer: Stable and Benefits outweigh risks Care Plan Goals: - Take Doxycycline for 27 more days to complete a 30 day course total of a ntibiotics for syphillis. Your titers were low at 1:8, follow with [facility] for your previous results. - You can lie flat in a dark room for your headaches. - Continue Keppra 1g twice a day to prevent further seizures. - Continue home medications as below. - You had an allergic reaction to gadolinium contrast and was given epinephrine to treat your reaction. - Follow up with Neurology for repeat EEG in 4 weeks outpatient as per Dr. Ma's recommendations. Do not drive until cleared by Neurology. - Follow up with your primary care doctor for results of your spinal fluid studies VDRL - Follow up with your primary care physician within 1 week of discharge. If you do not have a primary care physician, please follow up with the [facility] Residents clinic ([phone]) ? If you experience any new, worsening or persistent symptoms either call your primary doctor, or dial 911 or present to the emergency department. Prescriptions/Referrals Prescriptions/Med Rec: New doxycycline hyclate 100 mg tablet 100 mg PO BID 27 Days Qty: 54 0RF Rx Instructions: to complete a total of 30 days Continued levetiracetam [Keppra] 1,000 mg tablet 1,000 mg PO BID Qty: 60 0RF nifedipine 30 mg tablet extended release 30 mg PO QDAY Patient Comments: TAKE 1 TABLET BY MOUTH ON EMPTY STOMACH ONCE EVERY DAY docusate sodium [Colace] 100 mg capsule 100 mg PO BID famotidine 20 mg tablet 20 mg PO QDAY Held calcium carbonate 200 mg calcium (500 mg) tablet,chewable 200 mg PO BID Hold Instructions: Resume on 03/22/25. Hold until you see PCP Referrals: [facility] [Outside] No Primary/Family,Physician [Primary Care Provider] Torrey Ma MD [Physician, Neurology] Patient/Caregiver Discharge Instructions Education Materials: Syphilis, ED Seizure New Onset Unk Cause Ch, ED Seizure New Onset Unknown ... Print Language: Togolese Discharge Order Discharge Orders: Discharge (Routine); Ordered 03/16/25 Ordered By: David Holloway Quality Discharge Quality Measures none MD Attestestation MD Attestation I have seen and examined the patient. I was physically present for the [place] portions of the services provided including history, physical exam, diagnosis, treatment plans and orders. I agree with assessment and plan of care as documented by residents. Even though this this note was carefully revised there may still be minor errors in icing mixer due to voice recognition software. Stephenie Robertson MD
--- NOTE | 2025-03-16 15:03 | PC.NURSE ---
Report was given to nurse Letitia from [facility]. Discharge paperwork given to patient.
[2025-03-16 15:50] VITALS: BP 148/99; PULSE 72; RESP 18; TEMP 36.6; O2SAT 96
--- NOTE | 2025-03-16 17:26 | PD.RESPRO ---
Documentation for date of: 03/16/25 Subjective Subjective Interval history: Fernando reports doing well today, and is being [facility] back to the shelter. Patient verbalizes understanding to follow up with a primary care doctor outpatient for his CSF syphilis results. He is being discharged on a month course of doxycycline. Will continue his same dose of Keppra 1000 mg BID. He also needs to follow up with Neurology for a repeat EEG in 4 weeks. Exam Vital Signs Temp Pulse Resp BP Pulse Ox O2 Del Method O2 Flow Rate 97.9 F 72 18 148/99 H 96 Room Air 2 03/16/25 15:50 03/16/25 15:50 03/16/25 15:50 03/16/25 15:50 03/16/25 15:50 03/16/25 15:50 03/12/25 16:00 Narrative Exam Physical Exam General: Awake and in no acute distress. Conversational and non-toxic appearing. HEENT: Normocephalic, atraumatic, mucous membranes moist. Heart: Regular rate and rhythm, normal S1 and S2, no murmurs. Lungs: Clear to auscultation with no wheezing or crackles. Abdomen: Soft, nondistended, nontender, positive bowel sounds. ?No guarding or rebound tenderness. Neurologic: Alert and oriented x3, no gross neurological deficit, and patient able to move all 4 extremities. Extremities: No edema. Mild erthythema and hard skin left antecubital from the IV site. Skin: No rash or ecchymoses. Objective Labs 03/16/25 05:25 03/16/25 05:25 Labs: Laboratory Results - last 24 hr 03/16/25 05:25 WBC 7.3 RBC 4.65 Hgb 13.9 Hct 41.2 MCV 89 MCH 29.9 MCHC 33.7 RDW Std Deviation 42.8 Plt Count 355 Neut % (Auto) 49 Lymph % (Auto) 35 [place] % (Auto) 12 Eos % (Auto) 3 Baso % (Auto) 1 Neut # (Auto) 3.6 Lymph # (Auto) 2.6 [place] # (Auto) 0.9 H Eos # (Auto) 0.2 Baso # (Auto) 0.1 Immature Gran # (Auto) 0.02 H Absolute Nucleated RBC 0.00 Immature Gran % 0 Nucleated RBC % 0 Sodium 141 Potassium 4.1 Chloride 103 Carbon Dioxide 30.3 Anion Gap 8 BUN 13 Creatinine 0.9 Estim Creat Clear Calc 121.0 eGFR > 60 BUN/Creatinine Ratio 14 Glucose 105 Calculated Osmolality 281 Calcium 9.5 Corrected Calcium 9.5 Magnesium 1.9 Total Bilirubin 0.3 AST 36 H ALT 75 H Alkaline Phosphatase 98 Total Protein 7.3 Albumin 4.2 Globulin 3.1 Albumin/Globulin Ratio 1.4 Quality Measures Quality Measures none Assessment & Plan Assessment Current Active Medications: Generic Name Dose Route Start Last Admin Trade Name Freq PRN Reason Stop Dose Admin Acetaminophen 650 mg 03/11/25 16:10 03/13/25 08:02 Acetaminophen 325 Mg Tablet PO 04/10/25 16:09 650 mg Q6H PRN Administration Fever >100.4 Acetaminophen 650 mg 03/11/25 16:10 03/12/25 03:30 Acetaminophen 325 Mg Tablet PO 04/10/25 16:09 650 mg Q6H PRN Administration PAIN SCALE 1-3 (mild Hydrocodone Bitart/Acetaminophen 1 tab 03/11/25 16:15 03/15/25 08:34 Hydrocodone/Apap 5/325 Tablet PO 03/16/25 16:14 1 tab Q4HR PRN Administration PAIN SCALE 4-10(Mod-Sev Amlodipine Besylate 5 mg 03/12/25 09:00 03/15/25 08:34 Amlodipine Besylate 5 Mg Tablet PO 04/11/25 08:59 5 mg QDAY GINA Administration Diazepam 5 mg 03/11/25 16:18 Diazepam Inj 5 Mg/Ml Vial 2 Ml IVP 03/16/25 16:17 Q15MIN PRN seizure Doxycycline Hyclate 100 mg 03/14/25 09:00 03/15/25 08:35 Doxycycline 100 Mg Tablet PO 03/21/25 08:59 100 mg BID GINA Administration Enoxaparin Sodium 40 mg 03/12/25 09:00 03/15/25 08:34 Enoxaparin Sod Inj 40 Mg/0.4 Ml Syringe SC 03/26/25 08:59 40 mg QDAY GINA Administration Lactated Ringer's 1,000 mls @ 75 mls/hr 03/11/25 16:15 03/15/25 00:08 Lactated Ringers IV 04/10/25 16:14 75 mls/hr .[id number] GINA Administration Lactulose 20 gm 03/11/25 21:00 03/14/25 21:01 Lactulose Syrup 20 Gm/30 Ml Udc PO 04/10/25 20:59 20 gm HS GINA Administration Protocol Levetiracetam 1,000 mg 03/13/25 21:00 03/15/25 08:34 Levetiracetam 250 Mg Tablet PO 04/12/25 20:59 1,000 mg BID GINA Administration Ondansetron HCl 4 mg 03/11/25 16:10 Ondansetron Inj 2 Mg/Ml Inj 2 Ml IVP 04/10/25 16:09 Q6H PRN NAUSEA OR VOMITING Protocol Plan 39-year-old male with past medical history of new onset seizures, syphillis, and HTN, [facility] presented on 03/11/2025 after having had seizure-like activity of about 20 minutes and unresponsiveness for about half an hour. Neurology was consulted for further management of seizures. ? #Seizure-like activity Reported recurrent 10-20 min long whole-body shaking while lying on the floor unconscious, followed by episodes of unresponsiveness. Patient denies tongue biting, admits to acidic odor in his nose. Officer who is present at bedside states on some episodes there was incontinence. Given his history of syphilis and unknown titers and unknown treatment course would benefit from LP study, however patient declined at this time. EKG showed sinus rhythm CT head negative UA negative (RBC 13/hpf). UDS negative. MRI Brain w+wo con was negative for hemorrhage, mass effect, or infarct. TSH 3.43 <5, lipid panel WNL -EEG showed localized spike and wave activity noted in both temporal areas suggestive of seizures Plan: -4 week follow up EEG is recommended to confirm the epileptiform findings -Continue patient's home Keppra 1000 mg BID -Follow up CSF VDRL ? Rest of conditions to continue current management per primary team: #History of hypertension #History of syphilis Patient was discussed with the Neurology attending, Dr. Ma. Thank you for allowing us to participate in the care of this patient. Elise Polk, PGY-3 Attending Provider Attestation/Addendum I personally have seen and examined the patient at the bedside and agreed with the resident's findings, assessment and plan of care. Will continue with the Keppra 1000 mg twice a day by following seizure precautions. Follow-up with repeat EEG in 4 weeks. stable for dc.
[2025-03-17 15:35] LABS: West Nile Virus (IgG), CSF <1.30
[2025-03-18 11:18] LABS: HSV-1 DNA, CSF NOT DETECTED copies/mL; HSV-1 DNA, CSF Source CEREBROSPINAL FLUID
[2025-03-20 06:58] LABS: West Nile Virus (IgM), CSF <0.90
[2025-03-20 07:00] LABS: HSV-2 DNA, CSF NOT DETECTED copies/mL; VDRL, CSF Qual* NON-REACTIVE
== END 2025-03-16 15:55 | DRG 53 ==
LOC: SERX 15:21 → SERHOLD 16:50 → S2NX 21:39
PROVIDERS: Internal Medicine Infectious Disease; Admitting Provider Internal Medicine; Emergency Provider Emergency Medicine; Visit Provider Student in an Organized Health Care Education/Training Program
DX: R56.9 Unspecified convulsions (principal); F11.23 Opioid dependence with withdrawal; Z59.00 Homelessness unspecified; T88.6XXA Anaphylactic reaction due to adverse effect of correct drug or medicament properly administered, initial encounter; T50.8X5A Adverse effect of diagnostic agents, initial encounter; I10 Essential (primary) hypertension; R32 Unspecified urinary incontinence; K59.00 Constipation, unspecified; R30.0 Dysuria; F15.90 Other stimulant use, unspecified, uncomplicated; A53.0 Latent syphilis, unspecified as early or late; Z87.891 Personal history of nicotine dependence; Z91.041 Radiographic dye allergy status
CPT/HCPCS: 36415; 70553; 77002; 80053; 80061; 81001; 82550; 82945; 83036; 83735; 84100; 84157; 84443; 84484; 85025; 85610; 85730; 86592; 86703; 86780; 86788; 86789; 86803; 87070; 87205; 87530; 89051; 93005; 95816; 99282; A9577; J0166; J1200; J1650; J1720; J3475; J7120; A9270

== ENCOUNTER 2025-03-20 09:02 | Emergency (ER) | payer OTHER, SELFPAY ==
[2025-03-20 09:04] VITALS: PULSE 91; O2SAT 100; BMI 26.4
[2025-03-20 09:18] VITALS: BP 136/91; PULSE 81; RESP 17; TEMP 36.7; O2SAT 98
--- NOTE | 2025-03-20 09:36 | XR_ITS ---
Examination: CT brain head without contrast. 2-D sagittal coronal reconstructions Date and time of exam: March 20, 2025, 1013 hours, comparison March 11, 2025 INDICATIONS: Seizures today CTDI: vol (mGy): 52.3 DLP: (mGycm): 1004 Technique: Multiple CT axial sections of the brain have been obtained, 5 mm slice thickness. Contrast has not been administered. 2-D sagittal, coronal reconstructions have been obtained Low dose protocols were performed. One or more of the following dose reduction techniques were used; automated exposure control, adjustment of the mA and/or KV according to patient size, use of iterative reconstruction technique. Findings: No significant ventricular enlargement. Intra-axial or extra-axial hemorrhage density is not seen. No mass effect or midline shift Basal cisterns are not remarkable. Fourth ventricle is midline. Cranial vault intact. Impression: Negative for acute hemorrhage, mass effect or midline shift
--- NOTE | 2025-03-20 09:36 | XR_ITS ---
Portable AP chest film on 03/20/2025 at 9:50 2:00 a.m. Clinical history cough FINDINGS: Heart mediastinum lungs and pleural space are clear normal. IMPRESSION: Normal chest
[2025-03-20 09:58] VITALS: PULSE 101
--- NOTE | 2025-03-20 09:58 | PC.NURSE ---
Pt. here from [facility], with Officer for possible seizure this am, pt. states he felt a seizure coming on this morning, pt. 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 states he doesn't know what seizure medication he takes. Pt. states they just hand him pills at the [place]. Pt. states he had a lumbar puncture last week and ever since then he states he has had back pain.
[2025-03-20 10:43] LABS: Basophils # (Auto) 0.1 Thou/mm3 (0.0-0.2); Basophils % (Auto) 1 % (0-2.5); Eosinophils # (Auto) 0.1 Thou/mm3 (0.0-0.5); Eosinophils % (Auto) 1 % (0-10); Hematocrit 40.6 % (41.0-53.0); Hemoglobin 13.6 g/dL (13.5-16.0); Immature Granulocytes Auto 0.02 Thou/mm3 (0.00-0.00); Lymphocytes # (Auto) 2.1 Thou/mm3 (1.0-4.8); Lymphocytes % (Auto) 26 % (10-50); Mean Corpuscular HGB Conc 33.5 g/dl (31.0-37.0); Mean Corpuscular Hemoglobin 29.6 pg (25.0-35.0); Mean Corpuscular Volume 88 fL (80-100); Monocytes # (Auto) 0.4 Thou/mm3 (0.0-0.8); Monocytes % (Auto) 5 % (0-12); Neutrophils # (Auto) 5.5 Thou/mm3 (1.8-7.7); Neutrophils % (Auto) 68 % (37-80); Nucleated Red Blood Cell # 0.00 Thou/mm3 (0.00-0.00); Nucleated Red Blood Cell % 0 /100 WBC (0); Platelet Count 384 Thou/mm3 (140-440); RDW Standard Deviation 42.6 fL (35.1-43.9); Red Blood Count 4.60 Miln/mm3 (4.50-5.90); White Blood Count 8.1 Thou/mm3 (3.8-10.6)
--- NOTE | 2025-03-20 10:48 | EDNOTE_ITS ---
ED Seizures RME/HPI General Chief Complaint: Seizure Stated Complaint: SEIZURE Time Seen by Provider: 03/20/25 09:18 Arrival date/time: 03/20/25 09:02 Limitations: no limitations RME / HPI RME / HPI Narrative: 39 year old male who is currently incarcerated with history of seizures presents to the ED BIBA for evaluation following a seizure today. Per medics, law enforcement and RN on scene reported the patient had been seizing for several minutes prior to their arrival that had not improved after given 1mg of Ativan. Per medics, patient on scene was found sitting upright in a wheelchair with full body shaking and not responsive to painful or verbal stimuli. Was given 4mg IN Versed with improvement. Patient was then transported to the ED without incident. On arrival to the ED, patient has no additional complaints. Related Data Home Medications ?Medication ?Instructions ?Recorded ?Confirmed calcium carbonate 200 mg PO BID 03/12/2503/12 Held on 03/15/25. Instructions: Resume on 03/22/25. Hold until you see PCP docusate sodium 100 mg capsule 100 mg PO BID 03/12/25 03/12/25 (Colace) famotidine 20 mg tablet 20 mg PO QDAY 03/12/2503/12 nifedipine 30 mg tablet,extended 30 mg PO QDAY 5 03/12/25 release Previous Rx's ?Medication ?Instructions ?Recorded levetiracetam 1,000 mg tablet 1,000 mg PO BID #60 tabs 03/11/25 (Keppra) doxycycline hyclate 100 mg tablet 100 mg PO BID 27 day s #54 tabs 03/16/25 Allergies Allergy/AdvReac Type Severity Reaction Status Date / Time contrast Allergy Severe Anaphylaxis Uncoded 03/20/25 09:10 Review of Systems Review of Systems Systems Reviewed: All systems reviewed, normal except as documented Past Medical History Past Medical History NEUROLOGIC: Positive Neurological Disorders and Seizures CARDIAC: Positive Cardiac Disorders and Hypertension Family History FAMILY HISTORY: Positive Family Cardiac Disorders and Family Cancer Social History SMOKING STATUS: Former smoker ED Exam General Limitations: Present no limitations General appearance: Present alert and in no apparent distress Head Head exam: Present atraumatic, normocephalic, normal inspection and other (Patient arrived wearing a helmet from the court house ) Eye Eye exam: Present normal appearance, PERRL and EOMI ENT ENT exam: Present normal exam, normal oropharynx and mucous membranes moist Neck Neck exam: Present normal inspection, full ROM and trachea midline Chest Chest inspection: Present normal inspection and symmetric chest wall rise Respiratory Respiratory exam: Present normal lung sounds bilaterally Cardiovascular Cardiovascular exam: Present regular rate, normal rhythm and normal heart sounds Abdominal Exam Abdominal exam: Present soft and normal bowel sounds Extremities Exam Extremities exam: Present normal inspection and full ROM Back Exam Back exam: Present normal inspection and full ROM Neurological Exam Neurological exam: Present alert, oriented X3 and CN II-XII intact Psychiatric Psychiatric exam: Present normal affect and normal mood Skin Skin exam: Present warm, dry, intact and normal color Course Quality Measures none Orders Category Date Time Status Wreath Inspector NOW Care 03/20/25 09:36 Completed Continuous Pulse Oximetry NOW Care 03/20/25 09:36 Completed Insert IV NOW Care 03/20/25 09:[address] head/brain wo con Stat Exams 03/20/25 09:36 Completed XR chest 1V portable Stat Exams 03/20/25 09:36 Completed CBC Stat Lab 03/20/25 10:21 Completed Comprehensive Metabolic Panel Stat Lab 03/20/25 10:21 Completed Levetiracetam (Keppra)* Stat Lab 03/20/25 10:21 Received Prothrombin Time with INR Stat Lab 03/20/25 10:21 Completed Urinalysis Stat Lab 03/20/25 11:32 Completed Morphine* Inj Med 03/20/25 12:07 Discontinued 4 mg IVP X1 ONE Ondansetron Inj [Zofran Inj] Med 03/20/25 12:07 Discontinued 4 mg IVP X1 ONE Sodium Chloride 0.9% 1000 ml [Ns] 1,000 ml Med 03/20/25 09:35 Discontinued IV 999 mls/hr levETIRAcetam INJ [Keppra Inj] Med 03/20/25 09:35 Discontinued 1,000 mg IVP X1 ONE Oxygen Delivery NOW RT 03/20/25 09:36 Completed Vital Signs Vital signs: Vital Signs Temperature 98.0 F 03/20/25 09:18 Pulse Rate 81 03/20/25 09:18 Respiratory Rate 17 03/20/25 09:18 Blood Pressure 136/91 H 03/20/25 09:18 Pulse Oximetry (%) 98 03/20/25 09:18 Oxygen Delivery Method Room Air 03/20/25 09:18 Pulse ox is 98% on room air which is adequate. Seizure MDM Narrative MDM Narrative:: I Haleyjayesh Valle, sully scribing for and in the presence of Dr. Spring. Patient remains clinically stable throughout the emergency department visit, no seizures witnessed. We reviewed all the results, analysis, and treatment plans. Patient is amenable to discharge. Strict return precautions were outlined. Patient data External records reviewed:: [facility] previous records and EMS form Clinical information provided by:: patient, EMS and law enforcement Social determinants that could affect healthcare access:: none Patient has the following chronic illnesses:: Seizures How is presenting disease/condition affected by chronic disease/condition?: exacerbated by Evaluation data The following diagnostics were reviewed and interpreted by me:: lab results and radiology exam(s) Lab and/or radiology exams considered but not ordered:: None Interpretation Summary: Ordering Physician: Tanvir Spring MD Date of Service: 03/20/25 Procedure(s): XR chest 1V portable Accession Number(s): [id number] cc: Tanvir Spring MD; Bartolo Goss MD; Doe([facility])Joaquina MD~ Portable AP chest film on 03/20/2025 at 9:50 2:00 a.m. Clinical history cough FINDINGS: Heart mediastinum lungs and pleural space are clear normal. IMPRESSION: Normal chest Dictated By: Bartolo Goss MD Signed By: <Electronically signed by Bartolo Goss MD in OV> 03/20/25 1049 Ordering Physician: Tanvir Spring MD Date of Service: 03/20/25 Procedure(s): CT head/brain wo con Accession Number(s): [id number] cc: Tanvir Spring MD; Doe([facility])Joaquina MD; Bartolo Smith MD~ Examination: CT brain head without contrast. 2-D sagittal coronal reconstructions Date and time of exam: March 20, 2025, 1013 hours, comparison March 11, 2025 INDICATIONS: Seizures today CTDI: vol (mGy): 52.3 DLP: (mGycm): 1004 Technique: Multiple CT axial sections of the brain have been obtained, 5 mm slice thickness. Contrast has not been administered. 2-D sagittal, coronal reconstructions have been obtained Low dose protocols were performed. One or more of the following dose reduction techniques were used; automated exposure control, adjustment of the mA and/or KV according to patient size, use of iterative reconstruction technique. Findings: No significant ventricular enlargement. Intra-axial or extra-axial hemorrhage density is not seen. No mass effect or midline shift Basal cisterns are not remarkable. Fourth ventricle is midline. Cranial vault intact. Impression: Negative for acute hemorrhage, mass effect or midline shift Dictated By: Bartolo Smith MD Signed By: <Electronically signed by Bartolo Smith MD in OV> 03/20/25 1054 Medications / Prescriptions Medications or Prescriptions considered but not ordered:: None Medication administrations:: Medication Administration History Discontinued Medications Sodium Chloride (Ns) 1,000 mls @ 999 mls/hr IV .Q1H1M ONE Stop: 03/20/25 10:35 Last Infusion: 03/20/25 12:30 Dose: Infused Documented By: Admin: 03/20/25 11:29 Dose: 999 mls/hr Documented By: ED Levetiracetam (Levetiracetam Inj 100 Mg/Ml Vial 5ml) 1,000 mg IVP X1 ONE Stop: 03/20/25 09:36 Last Admin: 03/20/25 11:25 Dose: 1,000 mg Documented By: ED Morphine Sulfate (Morphine Sulf Inj 4 Mg/Ml Vial) 4 mg IVP X1 ONE Stop: 03/20/25 12:08 Last Admin: 03/20/25 13:11 Dose: 4 mg Documented By: AC Ondansetron HCl (Ondansetron Inj 2 Mg/Ml Inj 2 Ml) 4 mg IVP X1 ONE; Protocol Stop: 03/20/25 12:08 Last Admin: 03/20/25 13:12 Dose: 4 mg Documented By: BERNARDINO See above Consultations Consultation(s) initiated? (list below): No Diagnosis Seizure Differential Diagnosis: intractable seizure disorder, focal seizure, generalized seizure and epileptic seizure Most likely diagnosis given after review of the tests above:: Epileptic seizure Admission Indicated Admission indicated?: not indicated Admission Request Was there a request for admission?: No Disposition Plan Disposition Plan: Discharge Discharge Attestation Discharge Attestation: The patient and all family members were given an opportunity to ask questions and understood the discharge instructions. Discharge instructions specifically effects, indications for sooner follow up or return to the emergency department, and the expected course of current diagnosis. Patient condition: Stable Discharge Plan Plan Patient Disposition: Assisted/Court/Law Patient condition on transfer: Stable Prescriptions/Referrals Prescriptions/Med Rec: No Action levetiracetam [Keppra] 1,000 mg tablet 1,000 mg PO BID Qty: 60 0RF nifedipine 30 mg tablet extended release 30 mg PO QDAY Patient Comments: TAKE 1 TABLET BY MOUTH ON EMPTY STOMACH ONCE EVERY DAY calcium carbonate 200 mg calcium (500 mg) tablet,chewable 200 mg PO BID docusate sodium [Colace] 100 mg capsule 100 mg PO BID famotidine 20 mg tablet 20 mg PO QDAY doxycycline hyclate 100 mg tablet 100 mg PO BID 27 Days Qty: 54 0RF Rx Instructions: to complete a total of 30 days Referrals: Doe([facility])Joaquina MD [Primary Care Provider] - In 1 week Problem List Clinical Impression: Epileptic seizure Patient/Caregiver Discharge Instructions Discharge Activity: activity as tolerated Education Materials: Discharge Instructions for Epilepsy, ED Seizure, Recurrent (Adult) Additional Instructions: Continue with your current medications. Follow-up with your neurologist as scheduled. Print Language: Thai Stand Alone Forms: [facility] Award Info., Patient Portal Info Letter
[2025-03-20 10:57] LABS: Alanine Aminotransferase 54 U/L (10-49); Albumin, Serum 4.7 gm/dL (3.5-5.0); Albumin/Globulin Ratio 1.6 (1.2-2.2); Alkaline Phosphatase 83 U/L (46-116); Anion Gap 9 (7-16); Aspartate Amino Transferase 20 U/L (0-34); BUN/Creatinine Ratio 14 Ratio (12-20); Bilirubin,Total 0.4 mg/dL (0.3-1.2); Blood Urea Nitrogen 14 mg/dL (9-23); Calcium 9.5 mg/dL (8.3-10.6); Calcium (Corrected) 9.5 mg/dL (8.5-10.1); Carbon Dioxide 28.8 mMol/L (20.0-31.0); Chloride 105 mMol/L (98-107); Creatinine (Component) 1.0 mg/dL (0.6-1.3); Estimated Creatinine Clearance 112.1 mL/min (>60); Globulin 2.9 gm/dL (2.3-3.5); Glucose 103 mg/dL (74-106); Osmolality,Calculated 285 (275-295); Potassium 3.9 mMol/L (3.4-5.1); Sodium 143 mMol/L (136-145); Total Protein 7.6 gm/dL (5.7-8.2); eGFR > 60 See Note
[2025-03-20] MEDS: levETIRAcetam INJ 100 MG/ML VIAL 5ML 1000 MG IVP (11:25)
[2025-03-20] MEDS: SODIUM CHLORIDE 0.9% 1000 ML 1,000 ML 999 ML IV (11:29)
--- NOTE | 2025-03-20 11:36 | PC.NURSE ---
Dr. Spring in talking to pt.
[2025-03-20 11:52] LABS: Collection Type, Urine Clean Catch; Squamous Epithelial Cell,Urine 0 /hpf (0-5)
[2025-03-20 12:03] LABS: Bacteria,Urine Rare; Bilirubin,Urine Negative (Negative); Blood,Urine Negative (Negative); Clarity,Urine Clear (Clear/Hazy); Color,Urine Lt-Yellow (Lt Yel-Yel); Glucose, Urine Negative (Negative); Ketones,Urine Negative (Negative); Leukocyte Esterase,Urine Negative (Negative); Nitrite,Urine Negative (Negative); PH,Urine 6.5 (5.0-7.0); Protein,Urine Negative (Neg - Trace); RBC,Urine 3 /hpf (0-3); Specific Gravity,Urine 1.018 (1.001-1.035); Urobilinogen,Urine Negative mg/dL (0.0-1.0); WBC,Urine 1 /hpf (0-5)
[2025-03-20 12:05] VITALS: BP 156/101; PULSE 82; RESP 15; TEMP 36.8; O2SAT 96
[2025-03-20 12:53] LABS: INR 1.0 (0.9-1.3); Prothrombin Time 10.9 Seconds (9.0-12.2)
[2025-03-20] MEDS: MORPHINE SULF INJ 4 MG/ML VIAL IVP (13:11)
[2025-03-20] MEDS: ONDANSETRON INJ 2 MG/ML INJ 2 ML 4 MG IVP (13:12)
[2025-03-20 13:17] VITALS: BP 149/86; PULSE 87; RESP 13; TEMP 36.7; O2SAT 98
[2025-03-26 07:10] LABS: Levetiracetam (Keppra)* 23.2 mcg/mL (10.0-40.0)
== END 2025-03-20 13:33 ==
PROVIDERS: Emergency Provider Family Medicine; PCP Internal Medicine
DX: G40.909 Epilepsy, unspecified, not intractable, without status epilepticus (principal)
CPT/HCPCS: 36415; 70450; 71045; 80053; 80177; 81001; 85025; 85610; 96361; 96374; 96375; 99285; J1953; J2270; J2405; J7030